=== PATIENT | male | born 1955 | race Caucasian/White ===

== ENCOUNTER → 2025-04-14 | Outpatient (CLI) | payer MEDICARE, SELFPAY ==
[2025-04-14 09:18] LABS: Hematocrit 38.4 % (40-54); Hemoglobin 11.6 g/dL (13.0-16.5); Immature Granulocytes Count 0.130 X10^3/uL (0.0-0.0); Mean Corp Hgb Conc 30.2 g/dL (32-36); Mean Corpuscular Volume 84.0 fL (80-94); Mean Platelet Vol. 10.0 fl (6.2-12.0); NRBC Flagged by Analyzer 0 % (0-5); Platelet Count 306 K/mm3 (150-450); RBC Distribution Width CV 15.2 % (11.6-14.6); RBC Distribution Width SD 46.2 fl (35.1-43.9); Red Blood Count 4.57 M/mm3 (4.6-6.2); White Blood Count 13.2 K/mm3 (4.4-11.0)
[2025-04-14 10:03] LABS: AST(SGOT) 18 U/L (<=37); Alanine Aminotransfer ALT/SGPT 13 U/L (<=46); Albumin, Serum 4.3 g/dL (3.4-4.8); Alkaline Phosphatase 81 U/L (40-129); Anion Gap 14 (5-15); BUN 17 mg/dL (4-19); BUN/Creat Ratio 13.6 RATIO (10-20); Calcium,Total 9.8 mg/dL (7.6-11.0); Carbon Dioxide 21.1 mmol/L (21.0-32.0); Chloride 101 mmol/L (98-108); Globulin 3.4 g/dL (2.2-4.2); Glucose 173 mg/dL (70-99); Potassium 4.5 mmol/L (3.3-5.1)
== END | disposition home or self-care (01) ==
LOC: LAB 08:18
PROVIDERS: PCP Family Medicine; Referring Provider Student in an Organized Health Care Education/Training Program; Visit Provider Student in an Organized Health Care Education/Training Program
DX: D64.9 Anemia, unspecified (principal); R19.5 Other fecal abnormalities
CPT/HCPCS: 36415; 80053; 85025

== ENCOUNTER 2025-04-15 10:13 | Day surgery (SDC) | payer MEDICARE, SELFPAY ==
--- NOTE | 2025-04-14 16:39 | PAT.ANESEVAL ---
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 When Was Last Pacemaker Check QUESTION #4 FULL TEXT: You/Your Family Experience fever (hyperthermia) with Anesthesia Last Oral Intake Last Oral intake: Last Oral Intake NPO since Meds taken in AM with sips of water? Meds patient instructed to take am of surgery PONV PONV - block splitter operator: PONV - block splitter operator Female No 04/14/25 15:48 HX of Motion Sickness No 04/14/25 15:48 HX of N/V After Surgery No 04/14/25 15:48 Non-Smoker Yes 04/14/25 15:48 Duration of Surgery greater No 04/14/25 15:48 than 60 minutes Number of Risk Factors 1 04/14/25 15:48 PONV Score Low Risk 04/14/25 15:48 Respiratory Assessment Respiratory Assessment - block splitter operator: Respiratory Tract Infection Hx - block splitter operator Hx Respiratory Tract Infection No 04/14/25 15:48 STOP Sleep Apnea STOP Sleep Apnea - block splitter operator: STOP Sleep Apnea - block splitter operator Hx Hypertension Yes: controlled with med 04/14/25 15:48 Hx Sleep Apnea No 04/14/25 15:48 CPAP BIPAP Do you snore loudly (louder No 04/14/25 15:48 than talking or can be heard Do you often feel tired/ No 04/14/25 15:48 fatigued/ sleepy during daytime? Has anyone observed you stop No 04/14/25 15:48 breathing during sleep? STOP Results Negative 04/14/25 15:48 QUESTION #5 FULL TEXT : Do you snore loudly (louder than talking or can be heard through closed doors)? 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 Specify any problems Hx of Preganancy in last 3 N/A 04/14/25 15:48 Months Nurse Filling Out Transfusion NBUCHER 04/14/25 15:48 & Questions: Date: 04/14/25 04/14/25 15:48 Time: 15:50 04/14/25 15:48 Patient unable to answer at this time (ie. confused, unrespo /Reproduction History /Reproductive History - block splitter operator: /Reproductive Hx- block splitter operator Hx Now No 04/14/25 15:48 Gestational Age (in weeks): EDC: Hx Hx Para Hx Section SAB No 04/14/25 15:48 Does the father of the baby or his family experience fever w Father of the baby Malignant Hypertension history comment [facility] Medical History (Updated 04/14/25 @ 16:31 by Lucia Leiva) History of echocardiogram STEMI (ST elevation myocardial infarction) CAD (coronary artery disease) Wears hearing aid Loss of hearing Wears glasses Anxiety DVT (deep venous thrombosis) Restless legs Heartburn Non-smoker High cholesterol High blood pressure Hearing problem Myocardial infarct Home Medications Medication Instructions Recorded Last Taken Type Diltiazem 2% / Lidocaine 5% #1 ea 04/14/25 Unknown Rx ointment (compound) (Diltiazem 2%/Lidocaine 5% ointment (compound)) aspirin 81 mg tablet 81 mg PO QDAY 04/14/25 Unknown History blood-glucose meter (Contour Plus 04/14/25 Unknown History Blue Meter) clotrimazole 1 % topical cream 1 applic topical BID 04/14/25 Unknown History glimepiride 1 mg tablet 1 mg PO QDAY 04/14/25 Unknown History hyoscyamine sulfate 0.125 mg 0.125 mg sublingual BID-QID PRN 04/14/25 Unknown History sublingual tablet dyspepsia levocetirizine 5 mg tablet (Xyzal) 5 mg PO QDAY 04/14/25 Unknown History lisinopril 20 mg tablet 20 mg PO QDAY 04/14/25 Unknown History metformin 500 mg tablet 500 mg PO BIDWMEAL 04/14/25 Unknown History metoprolol succinate 50 mg 50 mg PO QDAY 04/14/25 Unknown History tablet,extended release 24 hr rosuvastatin 40 mg tablet 40 mg PO QDAY 04/14/25 Unknown History ticagrelor 90 mg tablet (Brilinta) 90 mg PO BID 04/14/25 Unknown History Allergy/AdvReac Type Severity Reaction Status Date / Time codeine Allergy Severe Hives Verified 04/14/25 15:47 Family History Mother COPD (chronic obstructive pulmonary disease) Father COPD (chronic obstructive pulmonary disease) Surgical History (Updated 04/14/25 @ 16:31 by Lucia Leiva) History of surgery on right wrist History of meniscectomy of left knee History of hernia repair History of coronary artery stent placement History of cardiac catheterization History of thrombectomy Social History Smoking Status: Never smoker alcohol intake: never substance use type: does not use what type of physical activity do you participate in: none Audit: Pertinent Findings HISTORY of Pertinent Findings History of Pertinent Findings: Hx CAD, STEMI 12/2023 with SYED placement to RCA, 40% stenosis in mid LAD, and complete occlusion in diagonal 1. Pertinent Findings Echo (EF%) pertinent findings: 12/2023: preserved EF - 63%, no valvular dz present. Heart catheterization pertinent findings: 12/2023: Coronary revascularization prox-mid RCA with SYED placed. 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 Thus, anesthesia clearance will depend on anesthesiologist eval on DOS)
[2025-04-15] VITALS (9 sets, daily range): BP systolic 90–127; BP diastolic 65–84; PULSE 73–95; RESP 16–18; TEMP 36.2–36.4; O2SAT 96–98; BMI 28.5
--- NOTE | 2025-04-15 10:30 | PCM.HP.STD ---
[facility] - General General Date of Admission: 04/15/25 Date of Service: 04/15/25 Chief Complaint: Anemia and diarrhea HPI Narrative SABRINA REYES, is a 69 M who presents for evaluation of anemia, and diarrhea and hemorrhoids. Patient referred from primary care provider due to anemia, change in bowel habits and hemorrhoids. Over the last 8 weeks patient has had diarrhea at least 3 times per day. Stools are urgent and liquid. Around this time he changed his metformin dose. He has associated abdominal cramping and nausea. About 6 weeks ago he developed a large hemorrhoid. He has been trying dimf-sti-feolpof remedies without relief. He has to sit on 1 side to relieve the pain. Pain is worse with bowel movements. Last colonoscopy was 10 years ago with 1 polyp. COUNT INCLUDES THE [facility] Medical History History of echocardiogram STEMI (ST elevation myocardial infarction) CAD (coronary artery disease) Wears hearing aid Loss of hearing Wears glasses Anxiety DVT (deep venous thrombosis) Restless legs Heartburn Non-smoker High cholesterol High blood pressure Hearing problem Myocardial infarct Home Medications Medication Instructions Recorded Last Taken Type Diltiazem 2% / Lidocaine 5% #1 ea 04/14/25 Unknown Rx ointment (compound) (Diltiazem 2%/Lidocaine 5% ointment (compound)) aspirin 81 mg tablet 81 mg PO QDAY 04/14/25 Unknown History blood-glucose meter (Contour Plus 04/14/25 Unknown History Blue Meter) clotrimazole 1 % topical cream 1 applic topical BID 04/14/25 Unknown History glimepiride 1 mg tablet 1 mg PO QDAY 04/14/25 Unknown History hyoscyamine sulfate 0.125 mg 0.125 mg sublingual BID-QID PRN 04/14/25 Unknown History sublingual tablet dyspepsia levocetirizine 5 mg tablet (Xyzal) 5 mg PO QDAY 04/14/25 Unknown History lisinopril 20 mg tablet 20 mg PO QDAY 04/14/25 Unknown History metformin 500 mg tablet 500 mg PO BIDWMEAL 04/14/25 Unknown History metoprolol succinate 50 mg 50 mg PO QDAY 04/14/25 Unknown History tablet,extended release 24 hr rosuvastatin 40 mg tablet 40 mg PO QDAY 04/14/25 Unknown History ticagrelor 90 mg tablet (Brilinta) 90 mg PO BID 04/14/25 Unknown History Allergy/AdvReac Type Severity Reaction Status Date / Time codeine Allergy Severe Hives Verified 04/14/25 15:47 Family History Mother COPD (chronic obstructive pulmonary disease) Father COPD (chronic obstructive pulmonary disease) Surgical History History of surgery on right wrist History of meniscectomy of left knee History of hernia repair History of coronary artery stent placement History of cardiac catheterization History of thrombectomy Social History Smoking Status: Never smoker alcohol intake: never substance use type: does not use what type of physical activity do you participate in: none ROS Constitutional Constitutional: Denies fatigue, fever(s), poor appetite, weight gain or weight loss Gastrointestinal Gastrointestinal: Denies belching, bloating, change in bowel habits, change in stool character, chewing difficulty, coffee ground emesis, constipation, cramping, diarrhea, dyspepsia, dysphagia, early satiety, excessive flatus, fecal incontinence, heartburn, hematemesis, hematochezia, hemorrhoids, loose stools, melena, nausea, odynophagia, rectal bleeding, tenesmus, vomiting or weight changes Physical Exam Const alert, oriented x3, no apparent distress and healthy appearing General Appearance: cooperative GI normal to inspection, nondistended, normoactive bowel sounds, soft to palpation, non-tender and non-distended Percussion: normal to percussion Rectal Exam: deferred Assessment & Plan Assessment/Plan (1) Hemorrhoid: (2) Loose stools: (3) Anemia: PLAN: Assessment and Plan Assessment and Plan (1) Anemia: Status: Acute (2) Loose stools: Status: Acute (3) Hemorrhoid: Status: Acute Plan: Sabrina is a 69-year-old male patient with past medical history of OR, hypertension and hyperlipidemia here today for evaluation. Patient having loose stool, abdominal pain, nausea and hemorrhoids over the past 8 weeks. Prior to this he had normal bowel movements. Last colonoscopy over 10 years ago with 1 polyp. Upon exam he does have 1 large hemorrhoid at the 4:00 region that is able to be reduced. I have sent in lidocaine/diltiazem ointment and recommend sitz bath. If no improvement will refer to general surgery. I have ordered CBC and CMP as he has been anemic. He is unsure how low his hemoglobin has been and unable to find records. I have recommended stool testing for enteric pathogens and calprotectin. Due to his anemia, blood in stool and change in bowel habits there is concern and recommended colonoscopy. Patient was agreeable and he was scheduled for this today. - Colonoscopy - CBC and CMP - Start lidocaine/diltiazem ointment - Follow-up after procedure Note: Portions of this note may have been selectively carried forward from previous documentation to ensure continuity and accuracy of the clinical record. All imported information has been reviewed and updated as necessary to reflect the current patient status, findings, and clinical decision-making for this encounter. [employer] speech recognition property economist software was used to create portions of this document. Sound alike and misspelled words, as well as other property economist errors may be contained in the documentation. Orders: Orders CBC W/Diff, Automated Today D64.9 - Anemia, unspecified, R19.5 - Other fecal abnormalities Comprehensive Metabolic Profil Today D64.9 - Anemia, unspecified, R19.5 - Other fecal abnormalities ENTERIC PATHOGEN PANEL STOOL Today D64.9 - Anemia, unspecified, K58.9 - Irritable bowel syndrome, unspecified, R19.5 - Other fecal abnormalities Calprotectin, Stool Today D64.9 - Anemia, unspecified, R19.5 - Other fecal abnormalities OVA+PARA w/Giardia EIA [id number] Today D64.9 - Anemia, unspecified, R19.5 - Other fecal abnormalities CDIFF (PCR) Today D64.9 - Anemia, unspecified, R19.5 - Other fecal abnormalities Colonoscopy Today D64.9 - Anemia, unspecified, K64.9 - Unspecified hemorrhoids, R19.5 - Other fecal abnormalities Medications: New Diltiazem 2% / Lidocaine 5% ointment (compound) (Diltiazem 2%/Lidocaine 5% ointment (compound)) Apply peasized amount to anus three times per day for hemorrhoids 1 ea 0RF ]
[2025-04-15] MEDS: Lactated Ringers 1,000 ML 15 ML IV (11:07)
--- NOTE | 2025-04-15 11:24 | PRE.ANES_ITS ---
ASA Classification* ASA Classification ASA Classification: 3 (hx of CAD, STEMI) Assessment & Plan Anesthesia* Anesthesia Assessment Anesthesia Assessment: Discussed sedation and/or anesthesia options, risks, benefits, and alternatives with patient/parents/legal guardian/POA. Questions invited. The patient/parents/legal guardian/POA seems to understand and agrees to proceed with anesthesia plan. Reviewed the physical assessment, medical history, allergy history and patient home medications list prior to surgery/procedure/anesthetic and documented any changes. Performed airway and anesthesia risk assessments. Anesthesia Type Anesthesia Type: MAC History Source History Obtained from:: Patient and Chart Anesthesia Focused Assessment* Temperature: 97.5 F Pulse Rate: 77 Blood Pressure: 127/84 Respiratory Rate: 16 Pulse Ox: 97 Airway Assessment Mouth opens: >3 cm Mallampati Score: II Neck Range of motion (ROM): Full ROM Labs Anesthesia Preop lab: CBC WBC, (4.4-11.0) 13.2 K/mm3 H 04/14/25, 08:23 RBC, (4.6-6.2) 4.57 M/mm3 L 04/14/25, 08:23 Hgb, (13.0-16.5) 11.6 g/dL L 04/14/25, 08:23 Hct, (40-54) 38.4 % L 04/14/25, 08:23 Plt Count, (150-450) 306 K/mm3 04/14/25, 08:23 CHEMISTRY Potassium, (3.3-5.1) 4.5 mmol/L 04/14/25, 08:23 Sodium, (133-145) 136 mmol/L 04/14/25, 08:23 BUN, (4-19) 17 mg/dL 04/14/25, 08:23 Creatinine, (0.70-1.20) 1.27 mg/dL H 04/14/25, 08:23 Glucose, (70-99) 173 mg/dL H 04/14/25, 08:23 POC Glucose, (74-106) 154 mg/dL H Today, 10:54 COAG Pre-Assessment Diagnosis/Proposed Procedure Planned Operative Procedure(s): cscope Anesthesia History 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 When Was Last Pacemaker Check QUESTION #4 FULL TEXT: You/Your Family Experience fever (hyperthermia) with Anesthesia Last Oral Intake Last Oral intake: Last Oral Intake NPO since 07:00 04/15/25 10:59 Meds taken in AM with sips of Yes 04/15/25 10:59 water? Meds patient instructed to take am of surgery PONV PONV - auto technician: PONV - auto technician Female No 04/14/25 15:48 HX of Motion Sickness No 04/14/25 15:48 HX of N/V After Surgery No 04/14/25 15:48 Non-Smoker Yes 04/14/25 15:48 Duration of Surgery greater No 04/14/25 15:48 than 60 minutes Number of Risk Factors 1 04/14/25 15:48 PONV Score Low Risk 04/14/25 15:48 Height & Weight Height & Weight: Anesthesia: Height & Weight Height 5 ft 10 in 04/15/25 10:59 Weight: 90.265 kg 04/15/25 10:59 Body Mass Index (BMI) 28.5 04/15/25 10:59 Respiratory Assessment Respiratory Assessment - auto technician: Respiratory Tract Infection Hx - auto technician Hx Respiratory Tract Infection No 04/14/25 15:48 STOP Sleep Apnea STOP Sleep Apnea - auto technician: STOP Sleep Apnea - auto technician Hx Hypertension Yes: controlled with med 04/14/25 15:48 Hx Sleep Apnea No 04/14/25 15:48 CPAP BIPAP Do you snore loudly (louder No 04/14/25 15:48 than talking or can be heard Do you often feel tired/ No 04/14/25 15:48 fatigued/ sleepy during daytime? Has anyone observed you stop No 04/14/25 15:48 breathing during sleep? STOP Results Negative 04/14/25 15:48 QUESTION #5 FULL TEXT : Do you snore loudly (louder than talking or can be heard through closed doors)? 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 Specify any problems Hx of Preganancy in last 3 N/A 04/14/25 15:48 Months Nurse Filling Out Transfusion NBUCHER 04/14/25 15:48 & Questions: Date: 04/14/25 04/14/25 15:48 Time: 15:50 04/14/25 15:48 Patient unable to answer at this time (ie. confused, unrespo /Reproduction History /Reproductive History - auto technician: /Reproductive Hx- auto technician Hx Now No 04/14/25 15:48 Gestational Age (in weeks): EDC: Hx Hx Para Hx Section SAB No 04/14/25 15:48 Does the father of the baby or his family experience fever w Father of the baby Malignant Hypertension history comment Active Medications Active Medications: Current Medications Generic Name Dose Route Start Last Admin Trade Name Freq PRN Reason Stop Dose Admin Lactated Ringer's 1,000 mls @ 15 mls/hr 04/15/25 10:30 04/15/25 11:07 IV 15 mls/hr .Q48H JOSEPH Administration PFSH Medical History History of echocardiogram STEMI (ST elevation myocardial infarction) CAD (coronary artery disease) Wears hearing aid Loss of hearing Wears glasses Anxiety DVT (deep venous thrombosis) Restless legs Heartburn Non-smoker High cholesterol High blood pressure Hearing problem Myocardial infarct Home Medications Medication Instructions Recorded Last Taken Type Diltiazem 2% / Lidocaine 5% #1 ea 04/14/25 Unknown Rx ointment (compound) (Diltiazem 2%/Lidocaine 5% ointment (compound)) aspirin 81 mg tablet 81 mg PO QDAY 04/14/2504/13 History blood-glucose meter (Contour Plus 04/14/25 Unknown Hi story Blue Meter) clotrimazole 1 % topical cream 1 applic topical BID 04/14/25 History glimepiride 1 mg tablet 1 mg PO QDAY 04/14/25 History hyoscyamine sulfate 0.125 mg 0.125 mg sublingual BID-Q ID PRN 04/14/25 Unknown History sublingual tablet dyspepsia levocetirizine 5 mg tablet (Xyzal) 5 mg PO QDAY PRN al lergy symptoms 04/14/25 Unknown History lisinopril 20 mg tablet 20 mg PO QDAY 04/14/2504/15 07:00 History metformin 500 mg tablet 500 mg PO BIDWMEAL 04/14/25 04/13/25 History metoprolol succinate 50 mg 50 mg PO QDAY 04/14/2504/03 07:00 History tablet,extended release 24 hr rosuvastatin 40 mg tablet 40 mg PO QDAY 04/14/2504/13 History ticagrelor 90 mg tablet (Brilinta) 90 mg PO BID 04/13/25 History Allergy/AdvReac Type Severity Reaction Status Date / Time codeine Allergy Severe Hives Verified 04/15/25 10:55 Family History Mother COPD (chronic obstructive pulmonary disease) Father COPD (chronic obstructive pulmonary disease) Surgical History History of surgery on right wrist History of meniscectomy of left knee History of hernia repair History of coronary artery stent placement History of cardiac catheterization History of thrombectomy Social History Smoking Status: Never smoker alcohol intake: never substance use type: does not use what type of physical activity do you participate in: none Review of Systems (Anesthesia) ROS Narrative System reviewed and no additional complaints, except as documented.
--- NOTE | 2025-04-15 11:30 | COLBX_PTH ---
PATIENT: SABRINA REYES LOC: EN U#:[id number] AGE/SX: 69/M ROOM: RE04/15/[address]: Dr. Ricardo Cross DO : 1955 BED: DIS: 04/15/2025 SPEC #: [id number] RECD: 04/15/25 13:17 STATUS: KELLI RERupert #: [id number] RAMSEY: 04/15/25 11:[address]: Ricardo Cross DEPT: SURGICAL PATHOLOGY RECD BY: Mani Lopez ENTERED: 04/15/25 13:40 SP TYPE: COLON BX TRINY DR: Dr. Wyatt Giron DO Tissues: A - Descending colon B - Transverse colon C - Sigmoid colon biopsy D - Rectum, NOS Procedures: Surgery Specimen Level IV HEADER OPERATION: Colonoscopy with polypectomy and biopsy PRE-OP DIAGNOSIS: Hemorrhoid, anemia, loose stools TISSUE SUBMITTED: A- Descending colon polyp, B- Transverse colon polyp, C- Sigmoid colon polyp biopsy, D- Rectal mass biopsy MICROSCOPIC DIAGNOSIS A. Large intestine, descending polyp, biopsies: - Tubular adenoma B. Large intestine, transverse polyp: * Tubular adenoma C. Large intestine, sigmoid polyp: - Colonic mucosa with focal and superficial adenomatous features D. Rectum, mass: - Adenocarcinoma MICROSCOPIC DESCRIPTION Slides are reviewed. GROSS DESCRIPTION A. Received in fixative is one container labeled with the patient's name and designated "Descending colon polyp." The specimen consists of multiple irregular fragments of aguilar tissue that in aggregate measure 1.5 x 0.9 x 0.2 cm. admixed with flocculent material The specimen is totally submitted in one cassette. B. Received in fixative is one container labeled with the patient's name and designated "Transverse colon polyp." The specimen consists of multiple irregular fragments of aguilar tissue that in aggregate measure 0.6 x 0.4 x 0.1 cm. The specimen is totally submitted in one cassette. C. Received in fixative is one container labeled with the patient's name and designated "Sigmoid colon polyp biopsy." The specimen consists of one irregular fragment of aguilar tissue that measures 0.3 cm. The specimen is totally submitted in one cassette. D. Received in fixative is one container labeled with the patient's name and designated "Rectal mass biopsy." The specimen consists of multiple irregular fragments of aguilar tissue that in aggregate measure 1.3 x 0.9 x 0.2 cm. The specimen is totally submitted in one cassette. NC 04/15/2025 CPT:40235y8
--- NOTE | 2025-04-15 11:43 | EKG12_ITS ---
Test Reason : PREOP Blood Pressure : */* mmHG Vent. Rate : 78 BPM Atrial Rate : 78 BPM P-R Int : 138 ms QRS Dur : 102 ms QT Int : 430 ms P-R-T Axes : 52 -29 57 degrees QTcB Int : 490 ms Normal sinus rhythm Septal infarct , age undetermined Abnormal ECG No previous ECGs available Confirmed by KEITH ADAMS, ENRIQUE ([id number]), sound editor JU BAPTISTE ([id number]) on 04/19/2025 9:44:59 AM Referred By: Wyatt Giron Confirmed By: ENRIQUE PARKER MD
--- NOTE | 2025-04-15 12:29 | OP.COLON_ITS ---
Patient Name: Nakul Zamorano Procedure Date: 04/15/2025 11:31 AM Date of : 1955 Age: 69 Procedure: Colonoscopy Indications: Screening for colorectal malignant neoplasm Providers: Ricardo Cross DO Medicines: Monitored Anesthesia Care Patient Profile: This is a 69 year old male. Refer to note in patient chart for documentation of history and physical. Last Colonoscopy: none. The patient's first colonoscopy is today. Complications: No immediate complications. Procedure: Pre-Anesthesia Assessment: - Prior to the procedure, a History and Physical was performed, and patient medications and allergies were reviewed. The patient is competent. The risks and benefits of the procedure and the sedation options and risks were discussed with the patient. All questions were answered and informed consent was obtained. Patient identification and proposed procedure were verified by the physician in the pre-procedure area. Mental Status Examination: alert and oriented. Airway Examination: normal oropharyngeal airway and neck mobility. Respiratory Examination: clear to auscultation. CV Examination: normal. Prophylactic Antibiotics: The patient does not require prophylactic antibiotics. Prior Anticoagulants: The patient has taken no anticoagulant or antiplatelet agents except for NSAID medication. ASA Grade Assessment: II - A patient with mild systemic disease. After reviewing the risks and benefits, the patient was deemed in satisfactory condition to undergo the procedure. The anesthesia plan was to use monitored anesthesia care (MAC). Immediately prior to administration of medications, the patient was re-assessed for adequacy to receive sedatives. The heart rate, respiratory rate, oxygen saturations, blood pressure, adequacy of pulmonary ventilation, and response to care were monitored throughout the procedure. The physical status of the patient was re-assessed after the procedure. After I obtained informed consent, the scope was passed under direct vision. Throughout the procedure, the patient's blood pressure, pulse, and oxygen saturations were monitored continuously. The colonoscope was introduced through the anus and advanced to the cecum, identified by appendiceal orifice and ileocecal valve. The colonoscopy was performed without difficulty. The patient tolerated the procedure well. The quality of the bowel preparation was adequate. The ileocecal valve, appendiceal orifice, and rectum were photographed. Scope In: 11:45:20 AM Scope Withdrawal Time 0 hours 12 minutes 19 seconds Scope Out: 12:19:44 PM Total Procedure Duration Time 0 hours 34 minutes 24 seconds Findings: The digital rectal exam revealed a hard rectal mass palpated 2 to 3 cm from the anal verge. The mass was circumferential. An ulcerated partially obstructing large mass was found at the anus and in the rectum. The mass was circumferential. The mass measured three cm in length. In addition, its diameter measured seven mm. Oozing was present. This was biopsied with a cold forceps for histology. Coagulation for hemostasis using argon plasma at 1.3 liters/minute and 30 william was successful. Estimated blood loss was minimal. This was biopsied with a cold forceps for histology. Verification of patient identification for the specimen was done. Estimated blood loss was minimal. Three sessile polyps were found in the sigmoid colon, descending colon and transverse colon. The polyps were 10 mm in size. These polyps were removed with a hot snare. Resection and retrieval were complete. Verification of patient identification for the specimen was done. Estimated blood loss was minimal. Stool was found in the recto-sigmoid colon, in the sigmoid colon and in the cecum. Impression: - Rectal mass 2 to 3 cm from the anal verge. 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 Biopsied. Treated with argon plasma coagulation (APC). - Three 10 mm polyps in the sigmoid colon, in the descending colon and in the transverse colon, removed with a hot snare. Resected and retrieved. - Stool in the recto-sigmoid colon, in the sigmoid colon and in the cecum. Recommendation: - Discharge patient to home. - Resume previous diet. - Continue present medications. - Await pathology results. - Refer to an oncologist in 1 day. - Repeat colonoscopy in 1 year for surveillance. Procedure Code(s): --- Professional --- 88581, 59, Colonoscopy, flexible; with control of bleeding, any method 66890, Colonoscopy, flexible; with removal of tumor(s), polyp(s), or other lesion(s) by snare technique CPT copyright 2021 [employer]. All rights reserved. The codes documented in this report are preliminary and upon plastic mixer review may be revised to meet current compliance requirements. Ricardo Cross DO 04/15/2025 12:29:30 PM This report has been signed electronically. Number of Addenda: 0 Note Initiated On: 04/15/2025 11:31 AM
--- NOTE | 2025-04-15 12:29 | PCM.POST.ANE ---
Anesthesia: Postop Eval I Current Vital Signs Temperature: 97.2 F Pulse Rate: 94 Blood Pressure: 101/65 Respiratory Rate: 18 Pulse Ox: 97 Oxygen Delivery Method: Room Air Assessment Airway patent: Yes Spontaneous unlabored respirations: Yes Mental status: Asleep nausea: No Vomiting: No Anesthesia Complication: No Fluid Hydration Crystalloid volume administer (ml): 600 Total IV fluid infused: 600 Progress Note Anesthesia document: Postop Eval 1 completed: Yes
--- NOTE | 2025-04-15 12:30 | OP.PROVAT_ITS ---
04/15/2025 Wyatt Giron Re : Colonoscopy procedure for Nakul Deshpande Mack This procedure was performed on April. My impressions and recommendations are as follows: Impressions : - Rectal mass 2 to 3 cm from the anal verge. 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 Biopsied. Treated with argon plasma coagulation (APC). - Three 10 mm polyps in the sigmoid colon, in the descending colon and in the transverse colon, removed with a hot snare. Resected and retrieved. - Stool in the recto-sigmoid colon, in the sigmoid colon and in the cecum. Recommendations : - Discharge patient to home. - Resume previous diet. - Continue present medications. - Await pathology results. - Refer to an oncologist in 1 day. - Repeat colonoscopy in 1 year for surveillance. My findings are described in the full procedure note, which is enclosed. If I can be of further assistance, please feel free to contact me at . Sincerely, Ricardo Cross, 04/15/2025 12:29:30 PM This report has been signed electronically.
--- NOTE | 2025-04-15 13:10 | PCM.POSTANE2 ---
Anesthesia Postop Eval I Sum Postop Eval Completion status Anesthesia document: Postop Eval 1 completed: Yes Anesthesia Postop Eval I Summary Anesthesia Postop Eval I Summary: Anesthesia Postop Eval I: Assessment Summary Airway patent Yes 04/15/25 12:29 [email or web address] Spontaneous unlabored Yes 04/15/25 12:29 [email or web address] respirations Mental status Asleep 04/15/25 12:29 [email or web address] nausea No 04/15/25 12:29 [email or web address] Vomiting No 04/15/25 12:29 [email or web address] Anesthesia Postop Eval I: Fluid Summary Crystalloid volume administer 600 04/15/25 12:29 [email or web address] (ml) Colloids volume administered ( ml) Blood Product volume administered (ml) Total IV fluid infused 600 04/15/25 12:29 [email or web address] Anesthesia Postop Eval I: Summary Notes Anesthesia Complication No 04/15/25 12:29 [email or web address] Anesthesia Complication Comment: Post-operative progress note Anesthesia: Postop Eval II Evaluation Mental status: Awake Pain Level: 0 nausea: No Vomiting: No Complications Anesthesia Complication: No
== END 2025-04-15 13:18 | disposition home or self-care (01) ==
LOC: EN 10:14 → AC 10:17
PROVIDERS: PCP Family Medicine; Referring Provider Family Medicine; Visit Provider Internal Medicine Gastroenterology
DX: C20 Malignant neoplasm of rectum (principal); D64.9 Anemia, unspecified; Z79.899 Other long term (current) drug therapy; K64.9 Unspecified hemorrhoids; Z86.718 Personal history of other venous thrombosis and embolism; I25.10 Atherosclerotic heart disease of native coronary artery without angina pectoris; E78.00 Pure hypercholesterolemia, unspecified; Z79.82 Long term (current) use of aspirin; I10 Essential (primary) hypertension; Z79.84 Long term (current) use of oral hypoglycemic drugs; D12.4 Benign neoplasm of descending colon; D12.3 Benign neoplasm of transverse colon; D12.5 Benign neoplasm of sigmoid colon
CPT/HCPCS: 45385; 45380; 82962; 88305; 93005; C1889; J2405

== ENCOUNTER → 2025-04-16 | Outpatient (CLI) | payer MEDICARE, SELFPAY ==
--- NOTE | 2025-04-16 14:45 | CT_ITS ---
EXAM: CT Chest, Abdomen and Pelvis With Intravenous Contrast CLINICAL INDICATION: COLORECTAL CANCER TECHNIQUE: Axial computed tomography images of the chest, abdomen and pelvis with intravenous contrast. This CT exam was performed using one or more of the following dose reduction techniques: automated exposure control, adjustment of the mA and/or kV according to patient size, and/or use of iterative reconstruction technique. COMPARISON: No relevant prior studies available. FINDINGS: CHEST: LUNGS AND PLEURAL SPACES: Emphysematous lung changes. No mass. No consolidation. No significant effusion. No pneumothorax. HEART: Unremarkable. No cardiomegaly. No significant pericardial effusion. No significant coronary artery calcifications. ABDOMEN: LIVER: Ill-defined heterogeneous density in the right hepatic lobe measuring up to 1.5 cm. Heterogeneous density in the inferior right hepatic lobe measuring up to 1.6 cm. Metastasis can not be excluded. Hepatomegaly with fatty infiltration. GALLBLADDER AND BILE DUCTS: Unremarkable. No calcified stones. No ductal dilation. PANCREAS: Unremarkable. No ductal dilation. No mass. SPLEEN: Unremarkable. No splenomegaly. ADRENALS: Unremarkable. No mass. KIDNEYS AND URETERS: Unremarkable. No hydronephrosis. No solid mass. STOMACH AND BOWEL: Fecal retention in the colon consistent with constipation. No obstruction. No mucosal thickening. PELVIS: APPENDIX: No findings to suggest acute appendicitis. BLADDER: Unremarkable. No mass. REPRODUCTIVE: The prostate gland measures 4.8 cm in maximum dimension. CHEST, ABDOMEN and PELVIS: INTRAPERITONEAL SPACE: Unremarkable. No significant fluid collection. No free air. BONES/JOINTS: Unremarkable. No acute fracture. SOFT TISSUES: Umbilical hernia containing fat. Left inguinal hernia containing fat. VASCULATURE: Calcified and noncalcified plaque of the descending aorta. No aortic dissection or aneurysm. Scattered calcified atherosclerotic disease of aorta. LYMPH NODES: Unremarkable. No enlarged lymph nodes. CT/CT Chest, Abd, Pel w/Contrast IMPRESSION: 1. Ill-defined heterogeneous density in the right hepatic lobe measuring up to 1.5 cm. Heterogeneous density in the inferior right hepatic lobe measuring up to 1.6 cm. Metastasis can not be excluded. 2. Calcified and noncalcified plaque of the descending aorta. No aortic disse ction or aneurysm. 3. Hepatomegaly with fatty infiltration. 4. Fecal retention in the colon consistent with constipation. 5. Umbilical hernia containing fat. 6. Left inguinal hernia containing fat. Reading Location: [facility]
== END | disposition home or self-care (01) ==
LOC: CT 12:35
PROVIDERS: PCP Family Medicine; Referring Provider Internal Medicine Gastroenterology; Visit Provider Internal Medicine Gastroenterology
DX: C18.9 Malignant neoplasm of colon, unspecified (principal)
CPT/HCPCS: 71260; 74177; Q9967

== ENCOUNTER → 2025-05-06 | Outpatient (CLI) | payer MEDICARE, SELFPAY ==
[2025-05-06] VITALS (14 sets, daily range): BP systolic 115–171; BP diastolic 71–103; PULSE 59–72; RESP 14–20; TEMP 36.4; O2SAT 89–100; BMI 29.2
--- NOTE | 2025-05-06 08:48 | CT_ITS ---
PROCEDURE: BIOPSY/INJ OR NEEDLE PLACEMENT 05/06/2025 REASON FOR EXAM: LIVER LESION TECHNIQUE: Procedure Code: CTBX Modality: CT Procedure: BIOPSY/INJ OR NEEDLE PLACEMENT Coronal and Sagittal reconstruction series were provided. One or more dose reduction techniques were used (e.g., Automated exposure control, adjustment of the mA and/or kV according to patient size, use of iterative reconstruction technique. CONTRAST: None. The procedure as well as the benefits and possible complications including infection and bleeding were explained to the patient. Informed consent was obtained. The patient was in the supine position. The overlying skin was prepped and draped in usual sterile fashion. Conscious sedation was performed. The patient received 2 mg of Versed and 50 mcg of fentanyl intravenously. Conscious sedation was started at 9:50 a.m. and terminated at 10:20 a.m.. The patient was independently monitored by the department nurse. Following local anesthetic application, an 18 gauge core biopsy needle was placed into the hypodense nodule in the inferior aspect of the right lobe of the liver. 4 core biopsies were obtained. The specimen was deemed adequate by the pathologist. RADIATION DOSE SUMMARY: CTDlvol: 20.25 mGy DLP: 592.87 mGycm COMPARISON: Prior study dated April 16, 2025. FINDINGS: Successful CT-guided core biopsies of the hypodense nodule in the inferior aspect of the right lobe of the liver. The patient tolerated the procedure well. CT/Biopsy/Inj or Needle Placement IMPRESSION: Successful CT-guided biopsy of the abnormality in the inferior aspect of the ri ght lobe of the liver as described. The patient tolerated the procedure well. No immediate complication is seen. Reading Location: [place] [address]
[2025-05-06 08:50] LABS: Hematocrit 34.2 % (40-54); Hemoglobin 10.0 g/dL (13.0-16.5); Immature Granulocytes Count 0.050 X10^3/uL (0.0-0.0); Mean Corp Hgb Conc 29.2 g/dL (32-36); Mean Corpuscular Volume 83.0 fL (80-94); Mean Platelet Vol. 9.9 fl (6.2-12.0); NRBC Flagged by Analyzer 0 % (0-5); Platelet Count 264 K/mm3 (150-450); RBC Distribution Width CV 15.5 % (11.6-14.6); RBC Distribution Width SD 47.3 fl (35.1-43.9); Red Blood Count 4.12 M/mm3 (4.6-6.2); White Blood Count 9.6 K/mm3 (4.4-11.0)
[2025-05-06 09:00] LABS: Prothrombin Time (Protime)PT. 14.5 SECONDS (11.7-14.9)
[2025-05-06 09:01] LABS: Partial Thromboplast Time 24.8 Seconds (24.1-36.2)
[2025-05-06] MEDS: Midazolam 2 MG/2 ML Syringe IV (09:53)
[2025-05-06] MEDS: 0.9% Saline Lock 10 ML Syringe IV (09:53)
[2025-05-06] MEDS: fentaNYL 100 MCG/2 ML Ampul IV (09:55)
[2025-05-06] MEDS: Lidocaine 2% (20 ml mdv) 20 ML Vial INFILT (10:10)
--- NOTE | 2025-05-06 10:10 | ASPIGT_PTH ---
PATIENT: SABRINA REYES LOC: CT U#:[id number] AGE/SX: 69/M ROOM: RE05/06/[address]: Dr. Uzair Short MD : 1955 BED: DIS: 05/06/2025 SPEC #: [id number] RECD: 05/06/25 10:34 STATUS: KELLI RERupert #: [id number] ARMSEY: 05/06/25 10:[address]: Uzair Short DEPT: SURGICAL PATHOLOGY RECD BY: Kristin Mccormack ENTERED: 05/06/25 10:34 SP TYPE: ASP RAD OTHR DR: DO Dr. Umer Norman MD Tissues: Liver, NOS Procedures: FNA Specimen Adequacy Immunohistochemical Stains Special Stain Group II Surgery Specimen Level V Imprint (control) IHC Stain ADDITIONAL HEADER OPERATION: CT guided liver biopsy PRE-OP DIAGNOSIS: Rectal cancer TISSUE SUBMITTED: A- Right lobe, liver biopsy MICROSCOPIC DIAGNOSIS A. Liver, right lobe, CT-guided needle biopsy: - Metastatic adenocarcinoma COMMENT The specimen is evaluated at the time of biopsy by Dr. Carter. Immediate Evaluation = 1. Adequate. 2.Adeqaute. MICROSCOPIC DESCRIPTION Slides are reviewed. GROSS DESCRIPTION A. Received in formalin labeled with the patient's name and date of are multiple red-brown tissue core fragments, 0.3 cm to 1.4 cm in length by 0.1 cm in diameter. Touch preparations are made. Eyer[place] submitted in 2 cassettes. AR 05/06/2025 CPT:[id number] ,[id number] ADDENDUM ADDENDUM ADDENDUM ADDENDUM ADDENDUM ADDENDUM ADDENDUM ADDENDUM ADDENDUM ADDENDUM ADDENDUM ADDENDUM ADDENDUM ADDENDUM ADDENDUM ADDENDUM ADDENDUM ADDENDUM ADDENDUM ADDENDUM ADDENDUM ADDENDUM ADDENDUM 05/28/2025 12:39 ADDENDUM 05/28/2025 12:39 ADDENDUM 05/28/2025 12:39 ADDENDUM 05/28/2025 12:39 ADDENDUM 05/28/2025 12:39 ADDENDUM 06/09/2025 08:32 This addendum is to report the IHC for MMR: Mismatch Repair Protein (MMR) Nuclear Expression by IHC: ? MLH1: ?Present/intact ? PMS2: ?Present/intact ? MSH2: ?Present/intact ? MSH6: ?Present/intact IHC Interpretation: No loss of nuclear expression of?MMR?proteins: low probability of microsatellite instability-high (MSI-H)# # There are exceptions to the above IHC interpretations. These results should not be considered in isolation, and clinical correlation with genetic counseling is recommended to assess the need for germline testing. All matched controls reacted appropriately. These tests were developed and their performance characteristics determined by [facility]. They may not have been cleared or approved by the U.S. Food and Drug Administration. The FDA has determined that such clearance or approval is not necessary. The above immunohistochemical markers and/or special?stains have been reviewed by the Pathologist. This addendum is added to incorporate an outside pathology consultation report. The case was examined at [facility] by Dr. Masters (#[id number]) and the following diagnosis was rendered. A. 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 Please see complete above mentioned consultation report in EMR
== END | disposition home or self-care (01) ==
LOC: CT 08:28
PROVIDERS: Radiology Diagnostic Radiology; PCP Family Medicine; Referring Provider Internal Medicine Hematology & Oncology; Visit Provider Internal Medicine Hematology & Oncology
DX: C20 Malignant neoplasm of rectum (principal); C78.7 Secondary malignant neoplasm of liver and intrahepatic bile duct; N48.9 Disorder of penis, unspecified; D64.9 Anemia, unspecified
CPT/HCPCS: 47000; 36415; 77012; 85025; 85610; 85730; 88172; 88307; 88313; 88341; 88342; 99156; 99157; A4216

== ENCOUNTER 2025-05-10 07:35 | Day surgery (SDC) | payer MEDICARE, SELFPAY ==
--- NOTE | 2025-05-06 16:10 | PAT.ANESEVAL ---
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 When Was Last Pacemaker Check QUESTION #4 FULL TEXT: You/Your Family Experience fever (hyperthermia) with Anesthesia Last Oral Intake Last Oral intake: Last Oral Intake NPO since Meds taken in AM with sips of water? Meds patient instructed to take am of surgery PONV PONV - computer engineering technician: PONV - computer engineering technician Female No 05/06/25 13:44 HX of Motion Sickness No 05/06/25 13:44 HX of N/V After Surgery No 05/06/25 13:44 Non-Smoker No 05/06/25 13:44 Duration of Surgery greater Yes 05/06/25 13:44 than 60 minutes Number of Risk Factors 1 05/06/25 13:44 PONV Score Low Risk 05/06/25 13:44 Height & Weight Height & Weight: Anesthesia: Height & Weight Height 5 ft 10 in 05/06/25 09:26 Respiratory Assessment Respiratory Assessment - computer engineering technician: Respiratory Tract Infection Hx - computer engineering technician Hx Respiratory Tract Infection No 05/06/25 13:44 STOP Sleep Apnea STOP Sleep Apnea - computer engineering technician: STOP Sleep Apnea - computer engineering technician Hx Hypertension Yes: PER PT, controlled with 05/06/25 13:44 med Hx Sleep Apnea No 05/06/25 13:44 CPAP BIPAP Do you snore loudly (louder Yes 05/06/25 13:44 than talking or can be heard Do you often feel tired/ No 05/06/25 13:44 fatigued/ sleepy during daytime? Has anyone observed you stop No 05/06/25 13:44 breathing during sleep? STOP Results Positive 05/06/25 13:44 QUESTION #5 FULL TEXT : Do you snore loudly (louder than talking or can be heard through closed doors)? Tobacco Use History Tobacco Use History - computer engineering technician: Tobacco Use History - computer engineering technician Tobacco Use Smoking Status Current every day smoker 05/06/25 13:44 Hx Tobacco Use Yes: CHEWS TOBACCO 05/06/25 13:44 Years Smoking Packs Smoked per Day Smoking Cessation Date was within the last 15 years Hx Smoking Cessation Date Hx Smoking Cessation Counseling Hematologic Medial History Hematologic Hx - computer engineering technician: Hematologic Medical Hx - drug coordinator Hx of Blood Transfusion No 05/06/25 13:44 Hx of Transfusion in last 3 No 05/06/25 13:44 Months Date of Last Transfusion (if within last 3 months) Ever experience any problems No 05/06/25 13:44 with transfusion(s)? Specify any problems Hx of Preganancy in last 3 N/A 05/06/25 13:44 Months Nurse Filling Out Transfusion [email or web address] 05/06/25 13:44 & Questions: Date: 05/06/25 05/06/25 13:44 Time: 13:47 05/06/25 13:44 Patient unable to answer at this time (ie. confused, unrespo /Reproduction History /Reproductive History - computer engineering technician: /Reproductive Hx- computer engineering technician Hx Now No 05/06/25 13:44 Gestational Age (in weeks): EDC: Hx Hx Para Hx Section SAB No 05/06/25 13:44 Does the father of the baby or his family experience fever w Father of the baby Malignant Hypertension history comment [facility] Medical History (Updated 05/06/25 @ 13:54 by Marisa Miranda) Low iron Cancer Chews tobacco Leg cramps Rectal pain Rectal bleeding Facial palsy Strabismus Lesion of penis Rectum cancer History of echocardiogram STEMI (ST elevation myocardial infarction) CAD (coronary artery disease) Wears hearing aid Loss of hearing Wears glasses Anxiety DVT (deep venous thrombosis) Restless legs Heartburn High cholesterol High blood pressure Hearing problem Myocardial infarct Home Medications ?Medication ?Instructions ?Recorded ?Last Taken ?Type Diltiazem 2% / Lidocaine 5% #1 ea 04/14/25 Unknown Rx ointment (compound) (Diltiazem 2%/Lidocaine 5% ointment (compound)) aspirin 81 mg tablet 81 mg PO QDAY 04/14/25 04/13/25 History blood-glucose meter (Contour Plus 04/14/25 Unknown History Blue Meter) glimepiride 1 mg tablet 1 mg PO QDAY 04/14/25 04/13/25 History levocetirizine 5 mg tablet (Xyzal) 5 mg PO QDAY PRN allergy symptoms 04/14/25 Unknown History lisinopril 20 mg tablet 20 mg PO QDAY 04/14/25 04/15/25 07:00 History metformin 500 mg tablet 500 mg PO DAILY 04/14/25 04/13/25 History metoprolol succinate 50 mg 50 mg PO QDAY 04/14/25 04/15/25 07:00 History tablet,extended release 24 hr rosuvastatin 40 mg tablet 40 mg PO QDAY 04/14/25 04/13/25 History Allergy/AdvReac Type Severity Reaction Status Date / Time codeine Allergy Severe Hives Verified 05/06/25 13:39 Family History Mother COPD (chronic obstructive pulmonary disease) Father COPD (chronic obstructive pulmonary disease) Surgical History (Updated 05/06/25 @ 13:44 by Marisa Miranda) History of colonoscopy History of surgery on right wrist History of meniscectomy of left knee History of hernia repair History of coronary artery stent placement History of cardiac catheterization History of thrombectomy Social History Smoking Status: Current every day smoker tobacco type: smokeless tobacco alcohol intake: never substance use type: does not use what type of physical activity do you participate in: none Audit: Pertinent Findings Pertinent Findings EKG Perinent findings: 04/15/2025. Normal sinus rhythm. Septal infarct, age undetermined. Echo (EF%) pertinent findings: December 28, 2023. EF of 63%. No valvular disease present. Ascending aorta is dilated to 3.8 cm. Heart catheterization pertinent findings: December 31, 2023. Coronary revascularization?proximal to mid RCA with SYED. 99% to 0%. Consult pertinent findings: February 06, 2024. 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 1. Coronary artery disease-status post SYED to the proximal to mid right coronary artery. Lifelong aspirin. Brilinta for a year. Recommend to continue remaining active. 2. Hypertension-blood pressure elevated. Increase Toprol to 50 mg daily. Continue lisinopril. Monitor blood pressures at home. Additional pertinent findings: May 06, 2025. Hemoglobin is 10.0. Recommendation Anesthesia Recommendation Anesthesia recommendation: OPTIMIZED for anesthesia
[2025-05-10] VITALS (8 sets, daily range): BP systolic 108–154; BP diastolic 72–98; PULSE 60–74; RESP 16–18; TEMP 36.6–36.9; O2SAT 93–99; BMI 29.6
--- NOTE | 2025-05-10 07:39 | PRE.ANES_ITS ---
ASA Classification* ASA Classification ASA Classification: 3 Assessment & Plan Anesthesia* Anesthesia Assessment Anesthesia Assessment: Discussed sedation and/or anesthesia options, risks, benefits, and alternatives with patient/parents/legal guardian/POA. Questions invited. The patient/parents/legal guardian/POA seems to understand and agrees to proceed with anesthesia plan. Reviewed the physical assessment, medical history, allergy history and patient home medications list prior to surgery/procedure/anesthetic and documented any changes. Performed airway and anesthesia risk assessments. Anesthesia Type Anesthesia Type: MAC Anesthesia Focused Assessment* Airway Assessment Mouth opens: >3 cm Mallampati Score: II Labs Anesthesia Preop lab: CBC WBC, (4.4-11.0) 9.6 K/mm3 05/06/25, 08:32 RBC, (4.6-6.2) 4.12 M/mm3 L 05/06/25, 08:32 Hgb, (13.0-16.5) 10.0 g/dL L 05/06/25, 08:32 Hct, (40-54) 34.2 % L 05/06/25, 08:32 Plt Count, (150-450) 264 K/mm3 05/06/25, 08:32 CHEMISTRY Potassium, (3.3-5.1) 4.3 mmol/L 04/27/25, 10:00 Sodium, (133-145) 138 mmol/L 04/27/25, 10:00 Magnesium, (1.5-2.2) 2.1 mg/dL 04/27/25, 10:00 Phosphorus, (2.7-4.5) 3.2 mg/dL 04/27/25, 10:00 BUN, (4-19) 11 mg/dL 04/27/25, 10:00 Creatinine, (0.70-1.20) 1.16 mg/dL 04/27/25, 10:00 Glucose, (70-99) 185 mg/dL H 04/27/25, 10:00 POC Glucose, (74-106) 154 mg/dL H 04/15/25, 10:54 COAG PT, (11.7-14.9) 14.5 SECONDS 05/06/25, 08:32 Pre-Assessment Diagnosis/Proposed Procedure Planned Operative Procedure(s): (L) Insertion, Vascular Port left poss right Anesthesia History 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 When Was Last Pacemaker Check QUESTION #4 FULL TEXT: You/Your Family Experience fever (hyperthermia) with Anesthesia Last Oral Intake Last Oral intake: Last Oral Intake NPO since Meds taken in AM with sips of water? Meds patient instructed to take am of surgery PONV PONV - solar sales associate: PONV - solar sales associate Female No 05/06/25 13:44 HX of Motion Sickness No 05/06/25 13:44 HX of N/V After Surgery No 05/06/25 13:44 Non-Smoker No 05/06/25 13:44 Duration of Surgery greater Yes 05/06/25 13:44 than 60 minutes Number of Risk Factors 1 05/06/25 13:44 PONV Score Low Risk 05/06/25 13:44 Height & Weight Height & Weight: Anesthesia: Height & Weight Height 5 ft 10 in 05/06/25 09:26 Respiratory Assessment Respiratory Assessment - solar sales associate: Respiratory Tract Infection Hx - solar sales associate Hx Respiratory Tract Infection No 05/06/25 13:44 STOP Sleep Apnea STOP Sleep Apnea - solar sales associate: STOP Sleep Apnea - solar sales associate Hx Hypertension Yes: PER PT, controlled with 05/06/25 13:44 med Hx Sleep Apnea No 05/06/25 13:44 CPAP BIPAP Do you snore loudly (louder Yes 05/06/25 13:44 than talking or can be heard Do you often feel tired/ No 05/06/25 13:44 fatigued/ sleepy during daytime? Has anyone observed you stop No 05/06/25 13:44 breathing during sleep? STOP Results Positive 05/06/25 13:44 QUESTION #5 FULL TEXT : Do you snore loudly (louder than talking or can be heard through closed doors)? 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 Specify any problems Hx of Preganancy in last 3 N/A 05/06/25 13:44 Months Nurse Filling Out Transfusion MGRIFFITH 05/06/25 13:44 & Questions: Date: 05/06/25 05/06/25 13:44 Time: 13:47 05/06/25 13:44 Patient unable to answer at this time (ie. confused, unrespo /Reproduction History /Reproductive History - solar sales associate: /Reproductive Hx- solar sales associate Hx Now No 05/06/25 13:44 Gestational Age (in weeks): EDC: Hx Hx Para Hx Section SAB No 05/06/25 13:44 Does the father of the baby or his family experience fever w Father of the baby Malignant Hypertension history comment [facility] Medical History Low iron Cancer Chews tobacco Leg cramps Rectal pain Rectal bleeding Facial palsy Strabismus Lesion of penis Rectum cancer History of echocardiogram STEMI (ST elevation myocardial infarction) CAD (coronary artery disease) Wears hearing aid Loss of hearing Wears glasses Anxiety DVT (deep venous thrombosis) Restless legs Heartburn High cholesterol High blood pressure Hearing problem Myocardial infarct Home Medications ?Medication ?Instructions ?Recorded ?Last Taken ?Type Diltiazem 2% / Lidocaine 5% #1 ea 04/14/25 Unknown Rx ointment (compound) (Diltiazem 2%/Lidocaine 5% ointment (compound)) aspirin 81 mg tablet 81 mg PO QDAY 04/14/2504/13 History blood-glucose meter (Contour Plus 04/14/25 Unknown Hi story Blue Meter) glimepiride 1 mg tablet 1 mg PO QDAY 04/14/25 History levocetirizine 5 mg tablet (Xyzal) 5 mg PO QDAY PRN al lergy symptoms 04/14/25 Unknown History lisinopril 20 mg tablet 20 mg PO QDAY 04/14/2504/15 07:00 History metformin 500 mg tablet 500 mg PO DAILY 04/14/2504/27 History metoprolol succinate 50 mg 50 mg PO QDAY 04/14/2504/03 07:00 History tablet,extended release 24 hr rosuvastatin 40 mg tablet 40 mg PO QDAY 04/14/2504/13 History Allergy/AdvReac Type Severity Reaction Status Date / Time codeine Allergy Severe Hives Verified 05/06/25 13:39 Family History Mother COPD (chronic obstructive pulmonary disease) Father COPD (chronic obstructive pulmonary disease) Surgical History History of colonoscopy History of surgery on right wrist History of meniscectomy of left knee History of hernia repair History of coronary artery stent placement History of cardiac catheterization History of thrombectomy Social History Smoking Status: Current every day smoker tobacco type: smokeless tobacco alcohol intake: never substance use type: does not use what type of physical activity do you participate in: none Review of Systems (Anesthesia) ROS Narrative System reviewed and no additional complaints, except as documented.
[2025-05-10] MEDS: Lactated Ringers 1,000 ML 15 ML IV (08:24)
--- NOTE | 2025-05-10 09:26 | PCM.HP.STD ---
HPI - General General Date of Admission: 05/10/25 Date of Service: 05/10/25 Chief Complaint: Mediport placement HPI Narrative SABRINA REYES, is a 69 M who presents for elective Mediport placement surgery. We discussed the details of the planned procedure and he wishes to proceed. He presents today to have this placed. [facility] Medical History Low iron Cancer Chews tobacco Leg cramps Rectal pain Rectal bleeding Facial palsy Strabismus Lesion of penis Rectum cancer History of echocardiogram STEMI (ST elevation myocardial infarction) CAD (coronary artery disease) Wears hearing aid Loss of hearing Wears glasses Anxiety DVT (deep venous thrombosis) Restless legs Heartburn High cholesterol High blood pressure Hearing problem Myocardial infarct Home Medications ?Medication ?Instructions ?Recorded ?Last Taken ?Type Diltiazem 2% / Lidocaine 5% #1 ea 04/14/25 Unknown Rx ointment (compound) (Diltiazem 2%/Lidocaine 5% ointment (compound)) aspirin 81 mg tablet 81 mg PO QDAY 04/14/25 05/09/25 History blood-glucose meter (Contour Plus 04/14/25 Unknown History Blue Meter) glimepiride 1 mg tablet 1 mg PO QDAY 04/14/25 04/13/25 History levocetirizine 5 mg tablet (Xyzal) 5 mg PO QDAY PRN allergy symptoms 04/14/25 Unknown History lisinopril 20 mg tablet 20 mg PO QDAY 04/14/25 04/15/25 07:00 History metformin 500 mg tablet 500 mg PO DAILY 04/14/25 04/13/25 History metoprolol succinate 50 mg 50 mg PO QDAY 04/14/25 05/10/25 History tablet,extended release 24 hr rosuvastatin 40 mg tablet 40 mg PO QDAY 04/14/25 04/13/25 History Allergy/AdvReac Type Severity Reaction Status Date / Time codeine Allergy Severe Hives Verified 05/10/25 08:20 Family History Mother COPD (chronic obstructive pulmonary disease) Father COPD (chronic obstructive pulmonary disease) Surgical History History of colonoscopy History of surgery on right wrist History of meniscectomy of left knee History of hernia repair History of coronary artery stent placement History of cardiac catheterization History of thrombectomy Social History Smoking Status: Current every day smoker tobacco type: smokeless tobacco alcohol intake: never substance use type: does not use what type of physical activity do you participate in: none Vital Signs Vital Signs Vital Signs: 05/10/25 08:20 05/10/25 08:20 05/10/25 08:20 Temperature 97.8 F Temperature Source Temporal Pulse Rate 65 Respiratory Rate 16 Respiratory Pattern Normal Blood Pressure 154/92 H Blood Pressure Mean 112 Blood Pressure Source Monitor Blood Pressure Position Semi-Fowlers Blood Pressure Location Right Arm Baseline BP 154/92 Pulse Ox 99 Oxygen Delivery Method Room Air Weight Weight: 206 lb 5.643 oz Body Mass Index (BMI) 29.6 Physical Exam Const alert, oriented x3 and no apparent distress Assessment & Plan Assessment/Plan (1) Lesion of liver: PLAN: Plan The patient is a 69-year-old male with rectal cancer. He presents today to have a left-sided Mediport placed. We discussed the details of the planned procedure and he wishes to proceed. This will begin momentarily Charges/Coding Visit Charges Inpatient E&M: 72154 Init Hosp L3
[2025-05-10] MEDS: Lactated Ringers 500 ML IV (09:36)
[2025-05-10] MEDS: Cefazolin 1 GM/5 ML Vial 2 GM IV (09:45)
[2025-05-10] MEDS: fentaNYL 100 MCG/2 ML Ampul IV (10:28)
[2025-05-10] MEDS: Lidocaine 1% /Epi 1:100 (20ml) 20 ML Vial (10:42)
--- NOTE | 2025-05-10 11:26 | OP.PCM_ITS ---
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: No Type of Anesthesia: General and Local RN Documented Start/Stop Times: Operation Date: 05/10/25 09:30 Case Time Into Pre-Op 05/10/25 07:51 Out of Pre-Op 05/10/25 09:34 Anesthesia Start 05/10/25 09:47 Into Room 05/10/25 09:47 Procedure Start 05/10/25 10:09 Procedure End 05/10/25 11:06 Anesthesia End 05/10/25 11:21 Out of Room 05/10/25 11:21 Procedure Start Time: 10:09 Procedure Stop Time: 11:06 Select all DRAINS/GRAFTS/IMPLANTS that apply: Implanted device Implanted device details: MRI compatible port Special Medications: 2 g Ancef IV Estimated Blood Loss: 5 mL Specimen collected: No Description of surgery: The patient is a 69-year-old male who is being seen today for placement of a left sided Mediport in order to initiate chemotherapy. Preoperatively we discussed the details of the planned procedure including the risks benefits and alternatives. He wished to proceed. The patient was brought to the op room today following informed consent. Preoperative antibiotics were given and a timeout was performed. He was placed supine on the operative table with arms outstretched and arm boards. General anesthesia was induced. Once adequately sedated, his arms were comfortably tucked at his side. A roll was placed between the shoulders. His left upper chest and neck were prepped and draped in the usual sterile manner. Ultrasound was utilized to identify the left internal jugular vein. Local anesthetic was infiltrated into this area. Using the supplied needle and syringe I was able to gain access to the left subclavian vein. The blood return was a dark red, nonpulsatile, venous appearing blood. The supplied guidewire was then threaded through the aperture and the needle. C arm was utilized as the wire was advanced. It was noted that the wire repeatedly coiled within the innominate or very proximal SVC. Numerous attempts were used to manipulate the wire however this did not advance in feriorly towards the atrium. We changed to a different wire however this did not produce the desired direction of the wire. Eventually we switched to a angled Glidewire and this easily allowed advancement of the wire into the right atrium and ventricle. The wire was then secured to the drapes using curved hemostats. Local anesthetic was then injected into the area for the planned Mediport pocket. Incision was made using #15 blade. Bovie electrocautery was then used dissect down through subcutaneous tissues. A subcutaneous pocket was created. #11 blade was then used to make a incision near the entry point of the guidewire. The Mediport tubing was then tunneled from the larger incision up and out through the smaller incision. The tubing was then trimmed to about 26 cm. This was attached to the port hub. The hub was then affixed to the chest wall using Prolene suture x 2. The dilator and sheath were then threaded over the Glidewire. The Glidewire and dilator were then removed thus leaving the sheath in place. The free end of the tubing was then threaded down the sheath. C-arm was utilized repeatedly for this process and it appeared that the tip of the tubing was in the desired location either in the right atrium or SVC. The sheath was then extracted. C-arm was again used to confirm appropriate location of the tubing tip. The port was then tested. It key and flushed easily with both saline as well as heparin. No resistance to flushing. The tubing all laid nice without any acute bends or kinks. The Mediport hub appeared to be at a ideal depth to facilitate easy accessing. The incisions were closed with 3-0 Vicryl and 4-0 Vicryl. Skin glue was applied as dressing. Tegaderms were also placed. He was awake from anesthesia and taken to recovery in good condition Surgical Findings: See operative note Complications Complications: No Admit VTE Documentation VTE Present on Admission: No VTE Mechan Device Prophylaxis: SCD's VTE Pharm Prophylaxis ordered?: No Reason prophylaxis not ordered: Treatment Not Indicated
--- NOTE | 2025-05-10 11:29 | PCM.POST.ANE ---
Anesthesia: Postop Eval I Current Vital Signs Temperature: 98.4 F Pulse Rate: 74 Blood Pressure: 108/72 Respiratory Rate: 17 Pulse Ox: 95 Oxygen Delivery Method: Nasal Cannula Oxygen Flow Rate (L/min): 2 Assessment Airway patent: Yes Spontaneous unlabored respirations: Yes Mental status: Awake nausea: No Vomiting: No Anesthesia Complication: No Fluid Hydration Crystalloid volume administer (ml): 500 Total IV fluid infused: 500 Progress Note Anesthesia document: Postop Eval 1 completed: Yes
--- NOTE | 2025-05-10 11:35 | RAD_ITS ---
PROCEDURE: CHEST 1 VIEW (PORTABLE) 05/10/2025 REASON FOR EXAM: PORT PLACEMENT LEFT TECHNIQUE: Frontal view of the chest. COMPARISON: CT scan of the chest, abdomen, and pelvis dated 04/16/2025. CT PET scan was also performed on 05/04/2025 and that exam was reviewed. FINDINGS: Hardware/ tubes/ catheters/ lines: A left-sided central venous line tip is in the location of the proximal superior vena cava. Lungs: There is no atelectasis, consolidation, effusion, pneumothorax or pneumonic infiltrate. The 8 mm lung nodule in the left upper lobe seen on the most recent CT scan of the chest study is noted and appears similar. It is much better visualized on the CT exam and PET CT exam this may represent an infectious or inflammatory type process however neoplasm can not be entirely excluded. Heart and mediastinum: Heart size and configuration are within normal limits. Pulmonary vasculature and hilar structures are unremarkable. Trachea is midline. Bones: Degenerative changes of the thoracic spine are noted. There is a very subtle levoscoliosis of the lower thoracic spine. RAD/Chest 1 View (Portable) IMPRESSION: A left-sided central venous line tip is in the location of the proximal superio r vena cava. The 8 mm lung nodule in the left upper lobe seen on the most recent CT scan of the chest study is noted and appears similar. It is much better visualized on the CT exam and PET CT exam. This may represent a n infectious or inflammatory type process however neoplasm can not be entirely excluded. Reading Location: [id number]
--- NOTE | 2025-05-10 11:44 | EX.PCM.DISCH ---
Discharge Instructions Diet Discharge Diet: Light diet - advance as tolerated Activity Discharge Activity: Return to Normal Activity May shower in (days): 1 Ice area for (Minutes): 30 Lifting Restrictions: none Dressing / Incision Call your doctor if your incision/area has: Continuous Slow Oozing, Sudden Increased Bleeding, Increased Pain/ Swelling, Increased Redness, Foul Smelling Discharge and Swelling at the incision site Call your doctor if you observe: Fever of 101 or Higher Remove Dressing in: 3 days Cleanse incision/area with: Soap & Water Follow Up Care Please Follow Up With: Yaakov Roman MD When: 2 weeks. Please call office to schedule appointment Test Results: Test results from this visit will be discussed in further detail at your follow-up appointment, if applicable. Discharge Plan Admission Primary Reason for Your Visit: Mediport placement Attending Provider: Yaakov Roman Primary Care Provider: Wyatt Giron Instructions Print Language: Italian Discharge Orders/Prescriptions Prescriptions: New oxycodone 5 mg tablet 5 mg PO Q8H PRN (Reason: pain) 2 Days Qty: 5 0RF Continued metformin 500 mg tablet 500 mg PO DAILY (DME) blood-glucose meter [Contour Plus Blue Meter] Misc See Rx Instructions .Route Rx Instructions: As directed metoprolol succinate 50 mg tablet extended release 24 hr 50 mg PO QDAY lisinopril 20 mg tablet 20 mg PO QDAY glimepiride 1 mg tablet 1 mg PO QDAY aspirin 81 mg tablet 81 mg PO QDAY rosuvastatin 40 mg tablet 40 mg PO QDAY levocetirizine [Xyzal] 5 mg tablet 5 mg PO QDAY PRN (Reason: allergy symptoms) (DME) Diltiazem 2%/Lidocaine 5% ointment (compound) Ointment See Rx Instructions .Route Qty: 1 0RF Rx Instructions: Apply peasized amount to anus three times per day for hemorrhoids Referrals / Follow Up: Wyatt Giron, [Primary Care Provider, Family Practice] Disposition Disposition (needs filled in before D/C Order can be placed): Home, Self Care
--- NOTE | 2025-05-10 12:02 | POSTOPAN2_ITS ---
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
--- NOTE | 2025-05-10 12:02 | PCM.POSTANE2 ---
Anesthesia Postop Eval I Sum Postop Eval Completion status Anesthesia document: Postop Eval 1 completed: Yes Anesthesia Postop Eval I Summary Anesthesia Postop Eval I Summary: Anesthesia Postop Eval I: Assessment Summary Airway patent Yes 05/10/25 11:30 INVESTIGATIONS CONSULTANT.ABAR Spontaneous unlabored Yes 05/10/25 11:30 INVESTIGATIONS CONSULTANT.ABAR respirations Mental status Awake 05/10/25 11:30 INVESTIGATIONS CONSULTANT.ABAR nausea No 05/10/25 11:30 INVESTIGATIONS CONSULTANT.ABAR Vomiting No 05/10/25 11:30 INVESTIGATIONS CONSULTANT.ABAR Anesthesia Postop Eval I: Fluid Summary Crystalloid volume administer 500 05/10/25 11:30 INVESTIGATIONS CONSULTANT.ABAR (ml) Colloids volume administered ( ml) Blood Product volume administered (ml) Total IV fluid infused 500 05/10/25 11:30 INVESTIGATIONS CONSULTANT.ABAR Anesthesia Postop Eval I: Summary Notes Anesthesia Complication No 05/10/25 11:30 INVESTIGATIONS CONSULTANT.ABAR Anesthesia Complication Comment: Post-operative progress note Anesthesia: Postop Eval II Evaluation Mental status: Awake Pain Level: 0 nausea: No Vomiting: No
== END 2025-05-10 12:51 | disposition home or self-care (01) ==
LOC: SDC 07:36 → AC 07:37
PROVIDERS: PCP Family Medicine; Referring Provider Surgery; Visit Provider Surgery
PROC: (CPT 36561; principal; 2025-05-10 09:15)
DX: Z45.2 Encounter for adjustment and management of vascular access device (principal); C20 Malignant neoplasm of rectum; E78.00 Pure hypercholesterolemia, unspecified; K76.9 Liver disease, unspecified; Z79.82 Long term (current) use of aspirin; I25.10 Atherosclerotic heart disease of native coronary artery without angina pectoris; I10 Essential (primary) hypertension; F17.220 Nicotine dependence, chewing tobacco, uncomplicated; Z79.84 Long term (current) use of oral hypoglycemic drugs; Z79.899 Other long term (current) drug therapy
CPT/HCPCS: 36561; 00532; 71045; 77001; 82962; C1769; C1894; A4216; C1788; J2405

== ENCOUNTER 2025-05-12 21:17 | Emergency (ER) | payer MEDICARE, SELFPAY ==
[2025-05-12 21:18] VITALS: BP 159/89; PULSE 92; RESP 16; TEMP 36.8; O2SAT 98; BMI 44.4
[2025-05-12 23:15] LABS: Hematocrit 29.5 % (40-54); Hemoglobin 8.9 g/dL (13.0-16.5); Immature Granulocytes Count 0.060 X10^3/uL (0.0-0.0); Mean Corp Hgb Conc 30.2 g/dL (32-36); Mean Corpuscular Volume 79.7 fL (80-94); Mean Platelet Vol. 10.1 fl (6.2-12.0); NRBC Flagged by Analyzer 0 % (0-5); Platelet Count 202 K/mm3 (150-450); RBC Distribution Width CV 15.4 % (11.6-14.6); RBC Distribution Width SD 45.0 fl (35.1-43.9); Red Blood Count 3.70 M/mm3 (4.6-6.2); White Blood Count 12.0 K/mm3 (4.4-11.0)
[2025-05-12 23:25] LABS: Partial Thromboplast Time 25.2 Seconds (24.1-36.2); Prothrombin Time (Protime)PT. 14.2 SECONDS (11.7-14.9)
--- OUTSIDE RECORDS SUMMARY | 2025-05-12 23:25 | XMS RPT_ITS | CCD ---
Author Organization [facility] Care Team Providers Care Dishroom Attendant Name Role Phone Orion Craft DO Primary Care Provider Orion Craft DO Primary Care Provider Juan C RN, Radha Unavailable Unavailable Juan C RN, Radha Unavailable Unavailable Orion Craft DO Primary Care Provider [phone] Unavailable Primary Care Provider UnavailWyatt Esparza Primary Care Unavailab Wyatt Sal Referring Unavailab Ricardo Nicole Consulting Unavailable Ricardo Cross Attending Unavailable Wyatt Giron Primary Care Unavailab Wyatt Sal Referring Unavailab Ricardo Nicole Attending Unavailable Fe Mcrae Referring Unavailable Wyatt Giron Primary Care Unavailab Fe Martinez Attending Unavailable Wyatt Giron Primary Care Unavailab Wyatt Sal Referring Unavailab Fe Martinez Attending Unavailable Allergies Allergy Classification Reported Allergen(s) Allergy Type Date of Onset Reaction(s) Facility Opioid Agonists (3 sources) Codeine Drug Allergy 04-05-2015 [facility] (20 sources) Codeine Drug Allergy 04-05-2015 [facility] (1 source) Codeine Drug Allergy 04-15-2025 [facility] Repository Medications Current Medications Medication Drug Class(es) Dates Sig (Normalized) Sig (Original) glimepiride 1 mg oral tablet (20 sources) Sulfonylurea Start: 11-23-2022 End: 01-14-2024 glimepiride (Amaryl) 1 MG tablet One q AM 90 tablet 1 01/14/2024 Active Start: 07-18-2022 End: 08-17-2022 take 1 tablet by mouth once daily before breakfast glimepiride (Amaryl) 1 MG tablet Take 1 tablet (1 mg) by mouth every morning (before breakfast) for 30 doses. 30 tablet 2 07/18/2022 Active lisinopril 20 mg oral tablet (20 sources) Angiotensin Converting Enzyme Inhibitor Start: 12-29-2023 End: 12-28-2024 take 1 tablet by mouth once daily lisinopril 10 MG tablet Take 1 tablet (10 mg) by mouth daily. 30 tablet 11 12/29/2023 01/02/2024 Discontinued (Dose adjustment) Start: 10-01-2023 End: 12-29-2023 take 1 tablet by mouth once daily lisinopril 40 MG tablet take 1 tablet by mouth once daily 30 tablet 5 10/01/2023 12/29/2023 Discontinued (Stop taking at discharge) Start: 08-23-2023 End: 10-01-2023 take 1 tablet by mouth once daily lisinopril 30 MG tablet take 1 tablet by mouth once daily 90 tablet 1 08/23/2023 10/01/2023 Discontinued Start: 06-13-2022 End: 08-03-2022 lisinopril 20 MG tablet One q am Strength: 20 mg 30 tablet 3 06/13/2022 08/03/2022 Discontinued (Reorder) Start: 11-14-2020 End: 08-04-2024 take 1 tablet by mouth once daily lisinopril 20 MG tablet TAKE 1 TABLET BY MOUTH EVERY DAY 90 tablet 08/04/2024 Active metFORMIN hydrochloride 500 mg oral tablet (20 sources) Biguanide Start: 06-17-2023 End: 06-05-2024 take 2 tablets by mouth once daily in the morning, then take 1 tablet by mouth in the evening metFORMIN (Glucophage) 500 MG tablet TAKE 2 TABLETS BY MOUTH EVERY MORNING AND 1 TABLET BY MOUTH IN THE EVENING WITH SUPPER 270 tablet 1 06/05/2024 Active Start: 04-05-2022 End: 06-17-2023 take 1 tablet by mouth in the morning metFORMIN (Glucophage) 500 MG tablet Take 1 tablet (500 mg) by mouth in the morning and 1 tablet (500 mg) in the evening. Take with meals. Do all this for 180 doses. 180 tablet 0 07/18/2022 10/16/2022 Active 24 hr metoprolol succinate 50 mg extended release oral tablet (20 sources) beta-Adrenergic Lexis Start: 02-06-2024 End: 03-26-2024 take 1 tablet by mouth once daily metoprolol succinate XL (Toprol-XL) 50 MG 24 hr tablet Take 1 tablet (50 mg) by mouth daily. Do not crush or chew. 90 tablet 3 03/26/2024 Active Start: 12-28-2023 End: 12-29-2024 take 1 tablet by mouth once daily metoprolol succinate XL (Toprol-XL) 25 MG 24 hr tablet Take 1 tablet (25 mg) by mouth daily. Do not crush or chew. 30 tablet 11 12/30/2023 02/06/2024 Discontinued (Dose adjustment) PARoxetine hydrochloride 20 mg oral tablet (20 sources) Serotonin Reuptake Inhibitor Start: 12-28-2023 End: 12-29-2024 take 1 tablet by mouth once daily PARoxetine (Paxil) 20 MG tablet Take 1 tablet (20 mg) by mouth daily. 30 tablet 11 12/30/2023 Active Start: 09-14-2021 End: 12-29-2023 take 1 tablet by mouth once daily in the morning PARoxetine (Paxil) 10 MG tablet Take 1 tablet (10 mg) by mouth every morning. 90 tablet 1 08/23/2023 12/29/2023 Discontinued (Stop taking at discharge) predniSONE 10 mg oral tablet (1 source) Start: 11-14-2020 predniSONE (DELTASONE) 10 MG tablet 5 qday for 3 days, then 3 qday for 3 days, then one qday till gone 27 tablet 0 11/14/2020 Active rosuvastatin calcium 40 mg oral tablet (20 sources) HMG-CoA Reductase Inhibitor Start: 12-30-2023 End: 12-29-2024 take 1 tablet by mouth once daily rosuvastatin (Crestor) 40 MG tablet TAKE 1 TABLET BY MOUTH EVERY DAY 90 tablet 3 05/01/2024 Active Start: 12-28-2023 End: 12-29-2023 take 40 mg by mouth once daily 40 mg, Oral, Daily, Fir st dose on 12/28/23 at 0900 ticagrelor 90 mg oral tablet (20 sources) Start: 02-04-2024 End: 02-21-2024 take 1 tablet by mouth twice daily ticagrelor (Brilinta) 90 MG tablet Take 1 tablet (90 mg) by mouth 2 times daily. MAIL to patient 180 tablet 1 02/21/2024 Active Start: 01-02-2024 End: 12-30-2023 ticagrelor (Brilinta) 90 MG tablet Take 1 tablet (90 mg) by mouth 2 times daily. Do not start before January 02, 2024. 60 tablet 3 01/02/2024 12/30/2023 Discontinued Start: 01-02-2024 ticagrelor (Br ilinta) 90 MG tablet Take 1 tablet (90 mg) by mouth 2 times daily. Do not start before January 02, 2024. 60 tablet 3 01/02/2024 Active Start: 01-02-2024 ticagrelor (Br ilinta) 90 MG tablet Take 1 tablet (90 mg) by mouth 2 times daily. Do not start before January 02, 2024. 60 tablet 3 01/02/2024 Active Start: 12-27-2023 End: 12-28-2024 take 1 tablet by mouth twice daily ticagrelor (Brilinta) 90 MG tablet Take 1 tablet (90 mg) by mouth 2 times daily. MAIL to patient 60 tablet 11 12/30/2023 02/04/2024 Discontinued (Reorder) Completed/Discontinued Medications Medication Drug Class(es) Dates Sig (Normalized) Sig (Original) acetaminophen 325 mg oral tablet (2 sources) Start: 12-28-2023 End: 12-29-2023 take 1 tablet by mouth every four hours as needed for pain 650 mg, Oral, Every 4 hours PRN, mild pain (1-3), Fever > 100.5 F (38 C), Starting on 12/28/23 at 0002, [facility], Maximum dose of acetaminophen is 4000 mg from all sources in 24 hours. aspirin 81 mg chewable tablet (20 sources) Platelet Aggregation Inhibitor, Nonsteroidal Anti-inflammatory Drug Start: 12-29-2023 End: 12-29-2023 take 81 mg by mouth once daily 81 mg, Oral, Daily, First dose on 12/29/23 at 0900, [facility] take 1 tablet by mouth once jackelyn y aspirin 81 MG tablet Take 81 mg by mouth daily 0 Active calcium carbonate 500 mg chewable tablet (2 sources) Start: 12-28-2023 End: 12-29-2023 take 500 mg by mouth once daily 500 mg, Oral, Daily, First dose on 7/27/24 at 0800 cholecalciferol 9.52 unt/ml / glucose 357 mg/ml oral gel (2 sources) Vitamin D Start: 12-27-2023 End: 12-29-2023 15 g, Oral, As needed, low blood sugar, Starting on Sat12/27/23 at 2359, If blood glucose less than 50 mg/dL and patient ALERT and NOT NPO, give 2 tubes glucose gel. If blood glucose less than 70 mg/dL and patient ALERT and NOT NPO, give 1 tube glucose gel. Repeat blood glucose in 15 minutes. If blood glucose is less than 70 mg/dL, repeat treatment and recheck blood glucose in 15 minutes x2 and notify provider. 0.4 ml enoxaparin sodium 100 mg/ml prefilled syringe (2 sources) Low Molecular Weight Heparin Start: 12-29-2023 End: 12-29-2023 inject 40 mg by subcutaneous injection every twenty-four hours 40 mg, SubCUTAneous, Every 24 hours scheduled (Daily), First dose on Sat12/29/23 at 0900, Indication of Use: Prophylaxis-DVT/PE , Indications: Prophylaxis of Venous Thromboembolism 2 ml fentaNYL 0.05 mg/ml injection (2 sources) Opioid Agonist Start: 12-27-2023 End: 12-29-2023 IntraVENous, Code/trauma/sedati on medication, Starting on Sat12/27/23 at 2202 glucagon (rdna) 1 mg injection (2 sources) Antihypoglycemic Agent Start: 12-27-2023 End: 12-29-2023 1 mg, IntraMUSCular, PRN, low blood sugar, Blood glucose less than 70 mg/dL and patient NOT ALERT or NPO and does not have IV access., Starting on Sat12/27/23 at 2359, After administration, attempt intravenous access and start D5W at 100 mL/hr. Repeat blood glucose in 15 minutes x2 and notify provider. 150 ml glucose 50 mg/ml injection (4 sources) Start: 12-27-2023 End: 12-29-2023 12.5 g, IntraVENous, PRN, low blood sugar, Blood glucose less than 70 mg/dL and patient NOT ALERT or NPO., Starting on Sat12/27/23 at 2359, If patient does not respond within 5 minutes, repeat dose x1. Start D5W at 100 mL/hour until ordering provider can be reached. Repeat blood glucose in 15 minutes. If blood glucose is less than 70 mg/dL, repeat treatment and recheck blood glucose in 15 minutes x2. If using Glucostabilizer, dose as instructed per system. Start: 12-27-2023 End: 12-29-2023 100 mL/hr, IntraVENous, PRN, Blood sugar less than 70mg/dL, Starting on Sat12/27/23 at 2359, Start infusion following administration of dextrose 50% or glucagon. 1 ml heparin sodium, porcine 1000 unt/ml injection (2 sources) Unfractionated Heparin, Anti-coagulant Start: 12-27-2023 End: 12-29-2023 IntraVENous, Code/trauma/sedation medication, Starting on Sat12/27/23 at 2203 hydroCHLOROthiazide 25 mg oral tablet (20 sources) Thiazide Diuretic Start: 09-17-2021 End: 12-29-2023 hydroCHLOROthiazide (HYDRODiuril) 25 MG tablet Decrease to one half tab q day 90 tablet 1 08/23/2023 12/29/2023 Discontinued (Stop taking at discharge) insulin lispro 100 unt/ml injectable solution (2 sources) Insulin Analog Start: 12-28-2023 End: 12-29-2023 inject 12 [IU] by subcutaneous injection three times daily at mealtime 0-12 Units, SubCUTAneous, 3 times daily with meals, First dose on Sat12/28/23 at 0800, Medium Dose Correction Algorithm Glucose: Dose: LESS than 139 No Insulin 140-199 2 Unit 200-249 4 Units 250-299 6 Units 300-349 8 Units 350-400 10 Units Above 400 12 Units 50 ml magnesium sulfate 40 mg/ml injection (2 sources) Start: 12-28-2023 End: 12-28-2023 2,000 mg, IntraVENous, at 25 mL/hr, Administer over 2 Hours, Once, On Sat12/28/23 at 0430, For 1 dose, Recommended infusion rate not to exceed 1,000 mg (milligrams) per hour. 1 ml naloxone hydrochloride 0.4 mg/ml injection (2 sources) Opioid Antagonist Start: 12-27-2023 End: 12-29-2023 0.4 mg, IntraVENous, Every 5 min PRN, opioid reversal, respiratory depression, Starting on Sat12/27/23 at 2359, +++ For RR 250 ml nitroglycerin 0.2 mg/ml injection (2 sources) Nitrate Vasodilator Start: 12-28-2023 End: 12-29-2023 5-200 mcg/min (1.5-60 mL/hr), IntraVENous, Continuous, Starting on 12/28/23 at 0015, If Titrate Infusion? is No: Disregard instructions below. If Titrate infusion? is Yes: If rate LESS than 20 mcg/min: Titrate by 5 mcg/min no faster than every 5 minutes to goal. If rate GREATER than or equal to 20 mcg/min: Titrate by 10 mcg/min no faster than every 5 minutes to goal., Titrate Infusion? Yes, Initial Infusion Dose: Other, Other (mcg/min): 60, Goal of Therapy is: Chest pain sympton relief, Contact Provider if: SBP less than 90 mmHg omeprazole 40 mg delayed release oral capsule (4 sources) Proton Pump Inhibitor Start: 09-14-2021 End: 08-03-2022 take 1 capsule by mouth in the morning omeprazole (PriLOSEC) [address] capsule Take 40 mg by mouth in the morning. 0 09/14/2021 08/03/2022 Discontinued (Ineffective) 2 ml ondansetron 2 mg/ml injection (2 sources) Serotonin-3 Receptor Antagonist Start: 12-28-2023 End: 12-29-2023 take 4 mg intravenously every six hours as needed for nausea and vomiting 4 mg, IntraVENous, Every 6 hours PRN, nausea, vomiting, Starting on 12/28/23 at 0429 oxyCODONE hydrochloride 5 mg oral tablet (2 sources) Opioid Agonist Start: 12-28-2023 End: 12-28-2023 take 5 mg by mouth once 5 mg, Oral, Once, On 12/28/23 at 0130, For 1 dose Start: 12-28-2023 End: 12-28-2023 take 5 mg by mouth once 5 mg, Oral, Once, On Sat 12/02 12/24 at 0130, For 1 dose pantoprazole 20 mg delayed release oral tablet (2 sources) Proton Pump Inhibitor Start: 12-28-2023 End: 12-29-2023 take 20 mg by mouth once daily before breakfast 20 mg, Oral, Daily before breakfast, First dose (after last modification) on 12/28/23 at 0700, Do not crush, chew, or split. perflutren protein A microsphere (Optison) 3 mL in sodium chloride (PF) 0.9 % 10 mL IV syringe (2 sources) Start: 12-28-2023 End: 12-28-2023 0-10 mL, IntraVENous, IMG once PRN, other, Suboptimal echo image, Starting on 12/28/23 at 0929, For 1 dose, CV Procedural Medications, Administer via slow IVP for suboptimal echocardiogram enhancement. May administer as divided doses to reach optimal image enhancement simvastatin 80 mg oral tablet (20 sources) HMG-CoA Reductase Inhibitor Start: 08-30-2023 End: 12-29-2023 take 1 tablet by mouth once daily simvastatin (Zocor) 80 MG tablet Take 1 tablet (80 mg) by mouth Nightly for 90 doses. 90 tablet 1 08/30/2023 12/29/2023 Discontinued (Stop taking at discharge) Start: 02-09-2022 End: 08-30-2023 take 1 tablet by mouth once daily simvastatin (Zocor) 40 MG tablet Take 1 tablet (40 mg) by mouth Nightly. 90 tablet 1 08/23/2023 08/30/2023 Discontinued Problems Active Problems Problem Classification Problem Date Documented Date Episodic/Chronic Acute myocardial infarction (20 sources) Myocardial infarction; Translations: [ST elevation (STEMI) myocardial infarction of unspecified site] Onset: 12-27-19 24 12-27-2023 Chronic Anxiety disorders (20 sources) Generalized anxiety disorder; Translations: [Generalized anxiety disorder] Onset: 06-03-19 Resolved : 05-16-20 20 05-16-2020 Chronic Coronary atherosclerosis and other heart disease (20 sources) Coronary arteriosclerosis; Translations: [Atherosclerotic heart disease of [place] coronary artery without angina pectoris] Onset: 01-02-20 24 01-02-2024 Chronic Deficiency and other anemia (2 sources) Anemia, unspecified; Translations: [Anemia, unspecified] Onset: 04-15-20 Episodic Diabetes mellitus with complications (20 sources) Type 2 diabetes mellitus; Translations: [Type 2 diabetes mellitus without complications] Onset: 06-15-1903-18-2022 Chronic Disorders of lipid metabolism (20 sources) Mixed hypercholesterolemia and hypertriglyceridemia; Translations: [Mixed hyperlipidemia] Onset: 04-07-2004-07-2015 Chronic Essential hypertension (20 sources) Essential hypertension; Translations: [Essential (primary) hypertension] Onset: 06-03-1904-07-2015 Chronic Hemorrhoids (2 sources) Unspecified hemorrhoids; Translations: [Unspecified hemorrhoids] Onset: 04-15-20 Episodic Other gastrointestinal disorders (2 sources) Other fecal abnormalities; Translations: [Other fecal abnormalities] Onset: 04-15-20 Episodic Other screening for suspected conditions (not mental disorders or infectious disease) (8 sources) Patient encounter status; Translations: [Encounter for screening for malignant neoplasm of colon] 02-15-2023 Episodic Spondylosis; intervertebral disc disorders; other back problems (1 source) Sciatica; Translations: [Sciatica, left side] Episodic Past or Other Problems Problem Classification Problem Date Documented Da te Episodic/Chronic Abdominal hernia (1 source) Right inguinal hernia ; Translations: [Unilateral inguinal hernia, without obstruction or gangrene, not specified as recurrent] Onset: 02-27-2016 Resolved: 04-05-2016 04-05-2016 Episodic Diabetes mellitus with complications (20 sources) Hyperglycemia due to type 2 diabetes mellitus; Translations: [Type 2 diabetes mellitus with hyperglycemia] Onset: 09-14-2021 Resolved: 01-14-2024 03-18-2022 Chronic Other and unspecified benign neoplasm (20 sources) History of polyp of colon; Translations: [Personal history of colonic polyps] Onset: 05-03-2014 04-07-2015 Episodic Phlebitis; thrombophlebitis and thromboembolism (1 source) H/O: Deep vein thrombosis; Translations: [Personal history of other venous thrombosis and embolism] Resolved: 05-16-2020 05-16-2020 Episodic Results Test Name Value Interpretation Reference Range Facility Bedside Glucoseon 04-15-2025 [facility] GLU 154 mg/dL High 74-106 [facility] Comment on above: Result Comment: APPLE LERMA OF PATIENT CARE PER NURSING PROTOCOL Performed By: #### L 501.080 #### [facility] [address] [place], [address] Colonoscopy Reporton 025 Colonoscopy Report [facility] Medical Records Department [address] [place] [address] Colonoscopy Report MR#: [id number] Acct: [id number] Name: SABRINA REYES Rep #: [id number] : 1955 69 From: Ricardo Cross DO PCP: Dr. Wyatt Giron DO Status:REG [facility] Patient Name: Sabrina Reyes Procedure Date: 04/15/2025 11:31 AM Date of : 1955 Age: 69 Procedure: Colonoscopy Indications: Screening for colorectal malignant neoplasm Providers: Ricardo Cross DO Medicines: Monitored Anesthesia Care Patient Profile: This is a 69 year old male. Refer to note in patient chart for documentation of history and physical. Last Colonoscopy: none. The patient's first colonoscopy is today. Complications: No immediate complications. Procedure: Pre-Anesthesia Assessment: - Prior to the procedure, a History and Physical was performed, and patient medications and allergies were reviewed. The patient is competent. The risks and benefits of the procedure and the sedation options and risks were discussed with the patient. All questions were answered and informed consent was obtained. Patient identification and proposed procedure were verified by the physician in the pre-procedure area. Mental Status Examination: alert and oriented. Airway Examination: normal oropharyngeal airway and neck mobility. Respiratory Examination: clear to auscultation. CV Examination: normal. Prophylactic Antibiotics: The patient does not require prophylactic antibiotics. Prior Anticoagulants: The patient has taken no anticoagulant or antiplatelet agents except for NSAID medication. ASA Grade Assessment: II - A patient with mild systemic disease. After reviewing the risks and benefits, the patient was deemed in satisfactory condition to undergo the procedure. The anesthesia plan was to use monitored anesthesia care (MAC). Immediately prior to administration of medications, the patient was re-assessed for adequacy to receive sedatives. The heart rate, respiratory rate, oxygen saturations, blood pressure, adequacy of pulmonary ventilation, and response to care were monitored throughout the procedure. The physical status of the patient was re-assessed after the procedure. After I obtained informed consent, the scope was passed under direct vision. Throughout the procedure, the patient's blood pressure, pulse, and oxygen saturations were monitored continuously. The colonoscope was introduced through the anus and advanced to the cecum, identified by appendiceal orifice and ileocecal valve. The colonoscopy was performed without difficulty. The patient tolerated the procedure well. The quality of the bowel preparation was adequate. The ileocecal valve, appendiceal orifice, and rectum were photographed. Scope In: 11:45:20 AM Scope Withdrawal Time 0 hours 12 minutes 19 seconds Scope Out: 12:19:44 PM Total Procedure Duration Time 0 hours 34 minutes 24 seconds Findings: The digital rectal exam revealed a hard rectal mass palpated 2 to 3 cm from the anal verge. The mass was circumferential. An ulcerated partially obstructing large mass was found at the anus and in the rectum. The mass was circumferential. The mass measured three cm in length. In addition, its diameter measured seven mm. Oozing was present. This was biopsied with a cold forceps for histology. Coagulation for hemostasis using argon plasma at 1.3 liters/minute and 30 william was successful. Estimated blood loss was minimal. This was biopsied with a cold forceps for histology. Verification of patient identification for the specimen was done. Estimated blood loss was minimal. Three sessile polyps were found in the sigmoid colon, descending colon and transverse colon. The polyps were 10 mm in size. These polyps were removed with a hot snare. Resection and retrieval were complete. Verification of patient identification for the specimen was done. Estimated blood loss was minimal. Stool was found in the recto-sigmoid colon, in the sigmoid colon and in the cecum. Impression: - Rectal mass 2 to 3 cm from the anal verge. 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 Biopsied. Treated with argon plasma coagulation (APC). - Three 10 mm polyps in the sigmoid colon, in the descending colon and in the transverse colon, removed with a hot snare. Resected and retrieved. - Stool in the recto-sigmoid colon, in the sigmoid colon and in the cecum. Recommendation: - Discharge patient to home. - Resume previous diet. - Continue present medications. - Await pathology results. - Refer to an oncologist in 1 day. - Repeat colonoscopy in 1 year for surveillance. Procedure Code(s): --- Professional --- 43530, 59, Colonoscopy, flexible; with control of bleeding, any method 24606, Colonoscopy, flexible; with kristen (more content not included)... Normal [facility] MR/OP.[place] 04-15-2025 MR/OP.[facility] Medical Records Department [address] [place] [address] Provation Physician Letter MR#: [id number] Acct: [id number] Name: SABRINA REYES Rep #: [id number] : 1955 69 From: Ricardo Cross DO PCP: Dr. Wyatt Giron, Status:REG [facility] 04/15/2025 Wyatt Giron Re : Colonoscopy procedure for Sabrina Reyes Dear Mack This procedure was performed on April. My impressions and recommendations are as follows: Impressions : - Rectal mass 2 to 3 cm from the anal verge. 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 Biopsied. Treated with argon plasma coagulation (APC). - Three 10 mm polyps in the sigmoid colon, in the descending colon and in the transverse colon, removed with a hot snare. Resected and retrieved. - Stool in the recto-sigmoid colon, in the sigmoid colon and in the cecum. Recommendations : - Discharge patient to home. - Resume previous diet. - Continue present medications. - Await pathology results. - Refer to an oncologist in 1 day. - Repeat colonoscopy in 1 year for surveillance. My findings are described in the full procedure note, which is enclosed. If I can be of further assistance, please feel free to contact me at . Sincerely, Ricardo Cross DO 04/15/2025 12:29:30 PM This report has been signed electronically. 04/15/25 1229 Date Ricrado Cross DO Cosignmian Signature: Date (if indicated) CC: Dr. Wyatt Giron DO; Ricardo Cross DO Date Dictated: 04/15/25 1131 Date Transcribed: Marketing Consultant: POP Signed Melissa [facility] MR/POSTOP.Buddy 04-15-2025 MR/POSTOP.ANE [facility] Medical Records Department [address] [place] [address] Anesthesia Postop Eval I 04/15/25 1229 MR#: [id number] Acct: [id number] Name: SABRINA REYES Rep #: [id number] : 1955 69 From: Yaron Barnes PCP: Dr. Wyatt Giron, DO Status:REG [facility] Y Race: C Location: [place] [address] Anesthesia: Postop Eval I Current Vital Signs Temperature: 97.2 F Pulse Rate: 94 Blood Pressure: 101/65 Respiratory Rate: 18 Pulse Ox: 97 Oxygen Delivery Method: Room Air Assessment Airway patent: Yes Spontaneous unlabored respirations: Yes Mental status: Asleep nausea: No Vomiting: No Anesthesia Complication: No Fluid Hydration Crystalloid volume administer (ml): 600 Total IV fluid infused: 600 Progress Note Anesthesia document: Postop Eval 1 completed: Yes 04/15/25 1229 Date Yaron Barnes Cosigner Signature: Date CC: Signed Normal [facility] CBC W/Diff, Automatedon 04-03 Absolute Lymph 2.10 X10 3/uL Normal 0.83-4.51 [facility] Comment on above: Performed By: #### L 100.0100, [id number] #### [facility] [address] [place], [address] Absolute Neut 9.5 X10 3/uL High 2.0-7.7 [facility] Comment on above: Performed By: #### L 100.0100, L500.4050 #### [facility] [address] [place], [address] Basophils/100 WBC (Bld) 0.8 % Normal 0-1 [facility] Comment on above: Performed By: #### L 100.0100, L500.4050 #### [facility] [address] [place], [address] Eosinophils/100 WBC (Bld) 3.1 % Normal 0-5 [facility] Comment on above: Performed By: #### L 100.0100, L500.4050 #### [facility] [address] [place], [address] Erythrocyte distribution width (RBC) [Ratio] 15.2 % High 11.6-14.6 [facility] Comment on above: Performed By: #### L 100.0100, L500.4050 #### [facility] [address] [place], [address] Hematocrit (Bld) [Volume fraction] 38.4 % Low 40-54 [facility] Comment on above: Performed By: #### L 100.0100, L500.4050 #### [facility] [address] [place], [address] Hemoglobin (Bld) [Mass/Vol] 11.6 g/dL Low 13.0-16.5 [facility] Comment on above: Performed By: #### L 100.0100, L500.4050 #### [facility] [address] [place], [address] IG% 1.000 High 0.0-0.9 [facility] Comment on above: Result Comment: IG% - Immature Granulocytes (promyelocytes, myelocytes and metamyelocytes) > 1% indicates that a LEFT SHIFT is Present. Performed By: #### L 100.0100, L500.4050 #### [facility] [address] [place], [address] Lymphocytes/100 WBC (Bld) 16.0 % Low 19-41 [facility] Comment on above: Performed By: #### L 100.0100, L500.4050 #### [facility] [address] [place], [address] MCH (RBC) [Entitic mass] 25.4 pg Low 27.0-32.0 [facility] Comment on above: Performed By: #### L 100.0100, L500.4050 #### [facility] [address] [place], [address] MCHC (RBC) [Mass/Vol] 30.2 g/dL Low 32-36 [facility] Comment on above: Performed By: #### L 100.0100, L500.4050 #### [facility] [address] [place], [address] MCV (RBC) [Entitic vol] 84.0 fL Normal 80-94 [facility] Comment on above: Performed By: #### L 100.0100, L500.4050 #### [facility] [address] [place], [address] Monocytes/100 WBC (Bld) 7.1 % Normal 0-10 [facility] Comment on above: Performed By: #### L 100.0100, L500.4050 #### [facility] [address] [place], [address] Neutrophils/100 WBC (Bld) 72.0 % High 47-70 [facility] Comment on above: Performed By: #### L 100.0100, L500.4050 #### [facility] [address] [place], [address] Nucleated RBC (Bld) [#/Vol] 0 10*3/uL Normal 0-5 [facility] Comment on above: Performed By: #### L 100.0100, L500.4050 #### [facility] [address] [place], [address] Platelet mean volume (Bld) [Entitic vol] 10.0 fL Normal 6.2-12.0 [facility] Comment on above: Performed By: #### L 100.0100, L500.4050 #### [facility] [address] [place], [address] Platelets (Bld) [#/Vol] 306 10*3/uL Normal 150-450 [facility] Comment on above: Performed By: #### L 100.0100, L500.4050 #### [facility] [address] [place], [address] RBC (Bld) [#/Vol] 4.57 10*6/uL Low 4.6-6.2 [facility] Comment on above: Performed By: #### L 100.0100, L500.4050 #### [facility] [address] [place], [address] RDW SD 46.2 fl High 35.1-43.9 [facility] Comment on above: Performed By: #### L 100.0100, L500.4050 #### [facility] [address] [place], [address] WBC (Bld) [#/Vol] 13.2 10*3/uL High 4.4-11.0 [facility] Comment on above: Performed By: #### L 100.0100, L500.4050 #### [facility] [address] [place], [address] Comprehensive Metabolic Prof neon 04-14-2025 Albumin [Mass/Vol] 4.3 g/dL Normal 3.4-4.8 [facility] Comment on above: Performed By: #### L 100.0100, L500.4050 #### [facility] [address] [place], [address] Albumin/Globulin [Mass ratio] 1.2 {ratio} Normal 0.9-2.4 [facility] Comment on above: Performed By: #### L 100.0100, L500.4050 #### [facility] [address] [place], [address] ALK PHOS 81 U/L Normal 40-129 [facility] Comment on above: Performed By: #### L 100.0100, L500.4050 #### [facility] [address] [place], [address] ALT [Catalytic activity/Vol] 13 U/L Normal <=46 [facility] Comment on above: Performed By: #### L 100.0100, L500.4050 #### [facility] [address] [place], [address] AST [Catalytic activity/Vol] 18 U/L Normal <=37 [facility] Comment on above: Performed By: #### L 100.0100, L500.4050 #### [facility] [address] [place], [address] Bilirubin [Mass/Vol] 0.21 mg/dL Normal 0.00-1.30 [facility] Comment on above: Performed By: #### L 100.0100, L500.4050 #### [facility] [address] [place], [address] BUN/CRE 13.6 RATIO Normal 10-20 [facility] Comment on above: Performed By: #### L 100.0100, L500.4050 #### [facility] [address] [place], [address] Calcium [Mass/Vol] 9.8 mg/dL Normal 7.6-11.0 [facility] Comment on above: Performed By: #### L 100.0100, L500.4050 #### [facility] [address] [place], [address] Chloride [Moles/Vol] 101 mmol/L Normal 98-108 [facility] Comment on above: Performed By: #### L 100.0100, L500.4050 #### [facility] [address] [place], [address] CO2 [Moles/Vol] 21.1 mmol/L Normal 21.0-32.0 [facility] Comment on above: Performed By: #### L 100.0100, L500.4050 #### [facility] [address] [place], [address] Creatinine [Mass/Vol] 1.27 mg/dL High 0.70-1.20 [facility] Comment on above: Performed By: #### L 100.0100, L500.4050 #### [facility] [address] [place], [address] GAP 14 Normal 5-15 [facility] Comment on above: Performed By: #### L 100.0100, L500.4050 #### [facility] [address] [place], [address] GFR/1.73 sq M.predicted among non-blacks MDRD (S/P/Bld) [Vol rate/Area] 61 mL/min/{1.73_m2} Normal >60 [facility] Comment on above: Result Comment: mL/m in/1.73m2 CKD-EPI Creatinine Equation (2020) Performed By: #### L 100.0100, L500.4050 #### [facility] [address] [place], [address] Globulin (S) [Mass/Vol] 3.4 g/dL Normal 2.2-4.2 [facility] Comment on above: Performed By: #### L 100.0100, L500.4050 #### [facility] [address] [place], [address] Glucose [Mass/Vol] 173 mg/dL High 70-99 [facility] Comment on above: Performed By: #### L 100.0100, L500.4050 #### [facility] [address] [place], [address] Potassium [Moles/Vol] 4.5 mmol/L Normal 3.3-5.1 [facility] Comment on above: Performed By: #### L 100.0100, L500.4050 #### [facility] [address] [place], [address] Sodium [Moles/Vol] 136 mmol/L Normal 133-145 [facility] Comment on above: Performed By: #### L 100.0100, L500.4050 #### [facility] [address] [place], [address] T PROT 7.7 g/dL Normal 5.9-8.4 [facility] Comment on above: Performed By: #### L 100.0100, L500.4050 #### [facility] [address] [place], [address] Urea nitrogen [Mass/Vol] 17 mg/dL Normal 4-19 [facility] Comment on above: Performed By: #### L 100.0100, L500.4050 #### [facility] [address] [place], [address] Gastroenterology Visit Repor ton 04-14-2025 Gastroenterology Visit Report [facility] [address] [place] [address] OFFICE VISIT Date of Service: 04/14/25 MR#: [id number] Acct: [id number] Name: ERICSABRINA Nelida Rep #: [id number] : 1955 Provider: ISAEL Sanford Age/Sex: 69/M Location: [facility] Status: Signed Intake Intake Visit Reasons: BLOODY DIARRHEA ANEMIC Chief Complaint: Hemorrhoids [employer] Worker Required: No Accompanied by: Is patient in pain?: No Allergies codeine Allergy (Severe, Verified 04/14/25 07:35) Hives Medications ???Medication ???Instructions ???Recorded ???Confirmed ???Type Diltiazem 2% / Lidocaine 5% #1 ea 04/14/25 04/14/25 Rx ointment (compound) (Diltiazem 2%/Lidocaine 5% ointment (compound)) aspirin 81 mg tablet 81 mg PO QDAY 04/14/25 04/14/25 Hi story blood-glucose meter (Contour Plus 04/14/25 04/14/25 History Blue Meter) clotrimazole 1 % topical cream 1 applic topical BID 04/14/2504/03 History glimepiride 1 mg tablet 1 mg PO QDAY 04/14/25 04/14/25 His tory hyoscyamine sulfate 0.125 mg 0.125 mg sublingual BID-QID PRN 04/14/25 History sublingual tablet levocetirizine 5 mg tablet (Xyzal) 5 mg PO QDAY 04/14/25 04/14/25 H istory lisinopril 20 mg tablet 20 mg PO QDAY 04/14/25 04/14/25 Hi story metformin 500 mg tablet 500 mg PO BIDWMEAL 04/14/25 History metoprolol succinate 50 mg 50 mg PO QDAY 04/14/25 04/14/25 Hi story tablet,extended release 24 hr rosuvastatin 40 mg tablet 40 mg PO QDAY 04/14/25 04/14/25 Hi story ticagrelor 90 mg tablet (Brilinta) 90 mg PO BID 04/14/25 04/14/25 H istory Have you fallen in the past year?: No PFSH Medical History High cholesterol High blood pressure Hearing problem Myocardial infarct Family History Mother COPD (chronic obstructive pulmonary disease) Father COPD (chronic obstructive pulmonary disease) Social History Smoking Status: Never smoker alcohol intake: never substance use type: does not use what type of physical activity do you participate in: none HPI HPI Chief Complaint: Hemorrhoids Details: SABRINA REYES, is a 69 M who presents to the office today for establishment. Patient referred from primary care provider due to anemia, change in bowel habits and hemorrhoids. Over the last 8 weeks patient has had diarrhea at least 3 times per day. Stools are urgent and li quid. Around this time he changed his metformin dose. He has associated abdominal cramping and nausea. About 6 weeks ago he developed a large hemorrhoid. He has been trying abpu-ryk-eetmtds remedies without relief. He has to sit on 1 side to relieve the pain. Pain is worse with bowel movements. Last colonoscopy was 10 years ago with 1 polyp. ROS Const Constitutional: Positive for fatigue; No fever(s) or weight change ENT ENT: No difficulty swallowing Gastro GI: Positive for abdominal pain, bloating, change in bowel habits, constipation, diarrhea, heartburn, Blood in stool and nausea/dyspepsia; No belching, change in stool character, coffee ground emesis, cramping, difficulty swallowing, feeling full early, excessive flatus, incontinent of stools, Vomiting blood/hematemesis, loose stools, Black,tarry stools, pain with swallowing, vomiting or other Musc Musculoskeletal: Positive for joint pain, back pain, Arthritis, sciatica and restless legs Skin Skin: No yellowing of the eye or itchy eyes Neuro Neurology: Positive for restless legs Psych Psychiatric: Positive for anxiety, No depression, Positive for Compulsive Behavior and Positive for obsessions/compulsio ns Endo Endocrine: Positive for fatigue; No weight change Aller/Imm Allergy/Immunologic: No itchy eyes Foster/Lymp Hematologic/Lymphati c: Positive for easy bleeding and easy bruising Exam Const General: cooperative and uncomfortable Nutritional Appearance: obese Orientation: alert HENMT Head: normal to inspection Eyes General: appearance normal, both eyes and all related structures Neck Neck: normal visual inspection Chest Chest palpation inspection: normal inspection of the chest Resp Effort Inspection: normal respiratory effort GI Inspection: normal to inspection Rectal Exam: hemorrhoids Assessment and Plan Assessment and Plan (1) Anemia: Status: Acute (2) Loose stools: Status: Acute (3) Hemorrhoid: Status: Acute Plan: Sabrina is a 69-year-old male patient with past medical history of SD, hypertension and hyperlipidemia here today for evaluation. Patient having loose stool, abdominal pain, nausea and hemorrhoids over the past 8 weeks. Prior to this he had normal bowel movements. Last colonoscopy over 10 ye (more content not included)... Normal [facility] MR/PATEdwin 04-14-2025 MR/PAT.[facility] Medical Records Department [address] [place] [address] PAT - Anesthesia 04/14/25 1639 MR#: [id number] Acct: [id number] Name: SABRINA REYES Rep #: [id number] : 1955 69 From: Pillo Patton MD PCP: Dr. Wyatt Giron, DO Status:PRE SDC Y Race: C Location: EN Pre-Assessment Diagnosis/Proposed Procedure Planned Operative Procedure(s): cscope Anesthesia History Anesthesia History - manager mba: Anesthesia History - manager mba Hx Hospitalization No 04/14/25 15:48 Any Problems With Anesthesia No 04/14/25 15:48 Cholinesterase deficiency No 04/14/25 15:48 You/Your Family Experience No 04/14/25 15:48 fever (hyperthermia) with Relationship Recent Exposure to Contagious Disease Does patient have nerve No 04/14/25 15:48 stimulator Patient instructed to have device shut off --Does patient have Pacemaker or ICD? When Was Last Pacemaker Check QUESTION #4 FULL TEXT: You/Your Family Experience fever (hyperthermia) with Anesthesia Last Oral Intake Last Oral intake: Last Oral Intake NPO since Meds taken in AM with sips of water? Meds patient instructed to take am of surgery PONV PONV - manager mba: PONV - manager mba Female No 04/14/25 15:48 HX of Motion Sickness No 04/14/25 15:48 HX of N/V After Surgery No 04/14/25 15:48 Non-Smoker Yes 04/14/25 15:48 Duration of Surgery greater No 04/14/25 15:48 than 60 minutes Number of Risk Factors 1 04/14/25 15:48 PONV Score Low Risk 04/14/25 15:48 Respiratory Assessment Respiratory Assessment - manager mba: Respiratory Tract Infection Hx - manager mba Hx Respiratory Tract Infection No 04/14/25 15:48 STOP Sleep Apnea STOP Sleep Apnea - manager mba: STOP Sleep Apnea - manager mba Hx Hypertension Yes: controlled with med 04/14/25 15:48 Hx Sleep Apnea No 04/14/25 15:48 CPAP BIPAP Do you snore loudly (louder No 04/14/25 15:48 than talking or can be heard Do you often feel tired/ No 04/14/25 15:48 fatigued/ sleepy during daytime? Has anyone observed you stop No 04/14/25 15:48 breathing during sleep? STOP Results Negative 04/14/25 15:48 QUESTION #5 FULL TEXT : Do you snore loudly (louder than talking or can be heard through closed doors)? 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 Specify any problems Hx of Preganancy in last 3 N/A 04/14/25 15:48 Months Nurse Filling Out Transfusion NBUCHER 04/14/25 15:48 Questions: Date: 04/14/25 04/14/25 15:48 Time: 15:50 04/14/25 15:48 Patient unable to answer at this time (ie. confused, unrespo /Reproducti on History /Reproducti ve History - manager mba: /Reproducti ve Hx- manager mba Hx Now No 04/14/25 15:48 Gestational Age (in weeks): EDC: Hx Hx Para Hx Section SAB No 04/14/25 15:48 Does the father of the baby or his family experience fever w Father of the baby Malignant Hypertension history comment [facility] Medical History (Updated 04/14/25 @ 16:31 by Lucia Leiva) History of echocardiogram STEMI (ST elevation myocardial infarction) CAD (coronary artery disease) Wears hearing aid Loss of hearing Wears glasses Anxiety DVT (deep venous thrombosis) Restless legs Heartburn Non-smoker High cholesterol High blood pressure Hearing problem Myocardial infarct Home Medications ???Medication ???Instructions ???Recorded ???Last Taken ???Type Diltiazem 2% / Lidocaine 5% #1 ea 04/14/25 Unknown Rx ointment (compound) (Diltiazem 2%/Lidocaine 5% ointment (compound)) aspirin 81 mg tablet 81 mg PO QDAY 04/14/25 Unknown His tory blood-glucose meter (Contour Plus 04/14/25 Unknown History Blue Meter) clotrimazole 1 % topical cream 1 applic topical BID 04/14/25 Unkn own History glimepiride 1 mg tablet 1 mg PO QDAY 04/14/25 Unknown Hist ory hyoscyamine sulfate 0.125 mg 0.125 mg sublingual BID-QID PRN Un (more content not included)... [facility] 03-17-2025 Name of caller: Sabrina Reyes Contact phone number: [phone] Relationship to Patient: patient Provider: Dr Giron Practice: [facility] Chief Complaint/Reason for Call: 03/17/25 Pt calling to ask for a call back to schedule for an COLONOSCOPY at [facility] pt is needing an order Pls call pt with details wlm message sent to office Best time of day caller can be reached: AM Patient advised that office/PCP has 24-48 business hours to return their call: Yes [facility] 3608-11-[address] [facility] 36 Name of caller: Sabrina Contact phone number: [phone] Relationship to Patient: patient Provider: Dr. Craft Practice: [facility] Chief Complaint/Reason for Call: Patient called in to advise he found a new doctor and he will not be returning to this practice. Best time of day caller can be reached: N/A Patient advised that office/PCP has 24-48 business hours to return their call: Yes [facility] 3608-04-2024 36 Placed call to patient to discuss provider direction to schedule an appointment. Message left on voicemail to return call. [facility] 36 Recent Visits Date Type Provider Dept 01/14/24 Office Visit Orion Craft, DO [facility] 08/23/23 Office Visit Orion CraftDO [facility] Showing recent visits within past 365 days and meeting all other requirements Future Appointments No visits were found meeting these conditions. Showing future appointments within next 90 days and meeting all other requirements Requested Prescriptions Pending Prescriptions Disp Refills lisinopril 20 MG tablet [Pharmacy Med Name: LISINOPRIL 20 MG TABLET] 90 tablet 1 Sig: TAKE 1 TABLET BY MOUTH EVERY DAY Provider: Orion Craft DO Verified pharmacy: yes Verified day(s) supplied: yes Verified refill(s) needed (previous prescription showing no refills in chart): Yes Have you received any controlled medications from any other provider? No Overdue for visit: Yes If yes - patient scheduled? No Most recent labs completed in chart? Yes Hypertension: Lab Results Component Value Date NA 135 12/29/2023 K 4.4 12/29/2023 EGFR 71 01/14/2024 BUN 13 01/14/2024 CREATININE 1.12 01/14/2024 [facility] 36on 06-05-2024 36 Recent Visits Date Type Provider Dept 01/14/24 Office Visit Orion Love JulikathleenDO amairani [facility] 08/23/23 Office Visit Orion Love JuliasmitaDO [facility] Showing recent visits within past 365 days and meeting all other requirements Future Appointments No visits were found meeting these conditions. Showing future appointments within next 90 days and meeting all other requirements Requested Prescriptions Pending Prescriptions Disp Refills metFORMIN (Glucophage) 500 MG tablet [Pharmacy Med Name: metFORMIN HCl 500 MG Oral Tablet] 270 tablet 2 Sig: TAKE 2 TABLETS BY MOUTH EVERY MORNING AND 1 TABLET BY MOUTH IN THE EVENING WITH SUPPER Provider: Orion Craft DO Verified pharmacy: yes Verified day(s) supplied: yes Verified refill(s) needed (previous prescription showing no refills in chart): Yes Have you received any controlled medications from any other provider? N/A Overdue for visit: No If yes - patient scheduled? No Most recent labs completed in chart? Yes Diabetes: Lab Results Component Value Date HGBA1C 6.5 (H) 12/27/2023 MICROALBCREA < 30 mg 02/16/2022 BUNCREATININ SEE NOTE: 01/14/2024 K 4.4 12/29/2023 NA 135 12/29/2023 LDL 132 (A) 02/09/2022 HDL 39 (L) 02/21/2024 CHOLESTEROLT 185 08/23/2023 TRIG 156 (H) 02/21/2024 [facility] 36on 05-01-2024 36 Recent Visits Date Type Provider Dept 01/14/24 Office Visit Orion Love Luana, DO [facility] 08/23/23 Office Visit Orion Love Luana, DO [facility] Showing recent visits within past 365 days and meeting all other requirements Future Appointments No visits were found meeting these conditions. Showing future appointments within next 90 days and meeting all other requirements Requested Prescriptions Pending Prescriptions Disp Refills rosuvastatin (Crestor) 40 MG tablet [Pharmacy Med Name: ROSUVASTATIN CALCIUM 40 MG TAB] 90 tablet 1 Sig: TAKE 1 TABLET BY MOUTH EVERY DAY Provider: Cher Luna MD Verified pharmacy: yes Verified day(s) supplied: yes Verified refill(s) needed (previous prescription showing no refills in chart): Yes Have you received any controlled medications from any other provider? N/A Overdue for visit: Yes If yes - patient scheduled? No Most recent labs completed in chart? Yes None [facility] 36 03-30-2024 36 Recent Visits Date Type Provider Dept 01/14/24 Office Visit Orion Love Luana, DO [facility] 08/23/23 Office Visit Orion Love Luana, DO [facility] Showing recent visits within past 365 days and meeting all other requirements Future Appointments No visits were found meeting these conditions. Showing future appointments within next 90 days and meeting all other requirements Requested Prescriptions Pending Prescriptions Disp Refills metFORMIN (Glucophage) 500 MG tablet [Pharmacy Med Name: metFORMIN HCl 500 MG Oral Tablet] 300 tablet 2 Sig: TAKE 2 TABLETS BY MOUTH EVERY MORNING AND 1 TABLET BY MOUTH IN THE EVENING WITH SUPPER Provider: Orion Craft DO Verified pharmacy: yes Verified day(s) supplied: yes Verified refill(s) needed (previous prescription showing no refills in chart): Yes Have you received any controlled medications from any other provider? N/A Overdue for visit: Yes If yes - patient scheduled? No Most recent labs completed in chart? Yes Diabetes: Lab Results Component Value Date HGBA1C 6.5 (H) 12/27/2023 MICROALBCREA < 30 mg 02/16/2022 BUNCREATININ SEE NOTE: 01/14/2024 K 4.4 12/29/2023 NA 135 12/29/2023 LDL 132 (A) 02/09/2022 HDL 39 (L) 02/21/2024 CHOLESTEROLT 185 08/23/2023 TRIG 156 (H) 02/21/2024 Normal [facility] 36on 03-26-2024 36 NINFA: 02/06/24, last EK01/14/24, HR: 61, med pended for review Normal [facility] 36 Received fax from [employer] to refill metoprolol Normal [facility] Hepatic function 2000 panelo n 02-21-2024 Albumin [Mass/Vol] 4.4 g/dL 3.5 - 5.0 g/dL [facility] ALP [Catalytic activity/Vol] 62 U/L 38 - 126 U/L [facility] ALT [Catalytic activity/Vol] 24 U/L 0 - 49 U/L [facility] AST [Catalytic activity/Vol] 29 U/L 15 - 46 U/L [facility] Bilirubin [Mass/Vol] 0.6 mg/dL 0.2 - 1 .3 mg/dL [facility] Bilirubin.conjugated [Mass/Vol] 0.0 mg/dL 0.0 - 0.3 mg/dL [facility] Interpretation and review of laboratory results Normal [facility] Protein [Mass/Vol] 7.4 g/dL 6.3 - 8.2 g/dL [facility] Lipid 1996 panelon Cholesterol [Mass/Vol] 112 mg/dL NINF - 200 mg/dL [facility] Cholesterol in HDL [Mass/Vol] 39 mg/dL Low 40 - 60 mg/dL [facility] Cholesterol in LDL [Mass/Vol] 42 mg/dL 0 - <100 [facility] Cholesterol.total/Choles terol in HDL [Mass ratio] 3 {ratio} [facility] Comment on above: Ref Range: < 3 Low Risk for CHD 3-6 Mod Risk for CHD > 6 High Risk for CHD Interpretation and review of laboratory results Abnormal [facility] Triglyceride [Mass/Vol] 156 mg/dL High NINF - 150 mg/dL [facility] No Panel Informationon 02-20 [facility] [employer] Basic metabolic 1998 panelon 01-15-2024 Anion gap [Moles/Vol] 13 mmol/L Sum [facility] Calcium [Mass/Vol] 9.3 mg/dL 8.6 - 10. 3 mg/dL [facility] Chloride [Moles/Vol] 103 mmol/L 98 - 11 0 mmol/L [facility] CO2 [Moles/Vol] 21 mmol/L 20 - 32 mmol/L [facility] Creatinine [Mass/Vol] 1.12 mg/dL 0.70 - 1.35 mg/dL [facility] GFR/1.73 sq M.predicted among non-blacks MDRD (S/P/Bld) [Vol rate/Area] 71 mL/min/{1.73_m2} > OR = 60 mL/min/1.73m 2 [facility] [employer] Glucose [Mass/Vol] 95 mg/dL 65 - 99 mg/dL [facility] Comment on above: Fasting reference interval Potassium [Moles/Vol] 4.8 mmol/L 3.5 - 5.3 mmol/L [facility] Sodium [Moles/Vol] 137 mmol/L 135 - 146 mmol/L [facility] [employer] Urea nitrogen [Mass/Vol] 13 mg/dL 7 - 25 mg/d L [facility] Urea nitrogen/Creatinine [Mass ratio] SEE NOTE: [facility] [employer] Comment on above: Not Reported: BUN an d Creatinine are within reference range. [facility] ECG 12 leadOrdered By: Rajinder De La Garza on 01-14-2024 [facility] No Panel Informationon 01-01 Sinus Rhythm -Old anterior infarct. ABNORMAL [facility] [employer] No Panel InformationOrdered By: Medhat Adamson on 01-02-2024 [facility] [employer] Work Phone: Basic metabolic 1997 panelon 12-29-2023 Anion gap [Moles/Vol] 8 mmol/L 3 - 13 mmol/L [facility] Calcium [Mass/Vol] 9.0 mg/dL 8.4 - 10. 4 mg/dL [facility] [employer] Chloride [Moles/Vol] 106 mmol/L 98 - 10 7 mmol/L [facility] CO2 [Moles/Vol] 20 mmol/L Low 22 - 30 mmol/L [facility] Creatinine [Mass/Vol] 1.08 mg/dL 0.66 - 1.25 mg/dL [facility] [employer] GFR/1.73 sq M.predicted MDRD (S/P/Bld) [Vol rate/Area] 74.3 mL/min/{1.73_m2} - PINF [facility] Comment on above: Calculation based on the Chronic Kidney Disease Epidemiology Collaboration (CKD-EPI) equation refit without adjustment for race Glucose [Mass/Vol] 120 mg/dL High 70 - 100 mg/dL [facility] Interpretation and review of laboratory results Abnormal [facility] Potassium [Moles/Vol] 4.4 mmol/L 3.5 - 5.1 mmol/L [facility] Sodium [Moles/Vol] 135 mmol/L 135 - 145 mmol/L [facility] Urea nitrogen [Mass/Vol] 15 mg/dL 9 - 20 mg/d L [facility] CBC W Auto Differential pane l (Bld)on 12-29-2023 Basophils (Bld) [#/Vol] 0.0 10*3/uL 0.0 - 0.2 10*3/uL [facility] Basophils/100 WBC (Bld) 0.2 % 0.0 - 2.0 % [facility] Eosinophils (Bld) [#/Vol] 0.2 10*3/uL 0.0 - 0.5 10*3/uL [facility] Eosinophils/100 WBC (Bld) 1.2 % 0.0 - 6.0 % [facility] Erythrocyte distribution width (RBC) [Ratio] 14.9 % 11.5 - 15.0 % [facility] Hematocrit (Bld) [Volume fraction] 41.1 % 40.0 - 52.0 % [facility] Hemoglobin (Bld) [Mass/Vol] 13.2 g/dL 13.0 - 18.0 g/dL [facility] Immature granulocytes (Bld) [#/Vol] 0.1 10*3/uL High NINF - 0.1 10*3/uL [facility] Immature granulocytes/100 WBC (Bld) 0.5 % 0.0 - 2.0 % [facility] Interpretation and review of laboratory results Abnormal [facility] Lymphocytes (Bld) [#/Vol] 1.6 10*3/uL 1.0 - 4.3 10*3/uL [facility] Lymphocytes/100 WBC (Bld) 12.6 % Low 15.0 - 45.0 % [facility] MCH (RBC) [Entitic mass] 27.9 pg 26. 0 - 34.0 pg [facility] MCHC (RBC) [Mass/Vol] 32.1 % 30.5 - 36.0 % [facility] MCV (RBC) [Entitic vol] 86.9 fL 77.0 - 99.0 fL [facility] Monocytes (Bld) [#/Vol] 1.3 10*3/uL High 0.0 - 0.9 10*3/uL [facility] Monocytes/100 WBC (Bld) 10.0 % 5.0 - 13.0 % [facility] Neutrophils (Bld) [#/Vol] 9.7 10*3/uL High 1.8 - 7.5 10*3/uL [facility] Neutrophils/100 WBC (Bld) 75.5 % 38.0 - 82.0 % [facility] Nucleated RBC/100 WBC (Bld) [Ratio] 0.0 % [facility] Platelet mean volume (Bld) [Entitic vol] 10.3 fL 9.0 - 12.7 fL [facility] Platelets (Bld) [#/Vol] 169 10*3/uL 140 - 440 10*3/uL [facility] RBC (Bld) [#/Vol] 4.73 10*6/uL 4.40 - 5.9 0 10*6/uL [facility] WBC (Bld) [#/Vol] 12.9 10*3/uL High 3.6 - 10.7 10*3/uL [facility] Laboratory - Chemistry and C hemistry - challengeon 12-29-2023 Magnesium [Mass/Vol] 2.1 mg/dL 1.6 - 2 .3 mg/dL [facility] No Panel Informationon 12-28 P [place] 48 degrees [facility] MA Interval 141 ms [facility] QRS [place] 129 degrees [facility] QRSD Interval 104 ms [facility] QT Interval 389 ms [facility] QTC Interval 420 ms [facility] T Wave [place] -11 degrees [facility] Sinus rhythm RIGHT AXIS DEVIATION Probable anterolateral infarct, age indeterm ABNORMAL T, PROBABLE ISCHEMIA, ANT-LAT LEADS Electronically Signed On 12-29-2023 13:11:04 EDT by Radha Argueta MD - 12/29/2023 IMPRESSION: Sinus rhythm RIGHT AXIS DEVIATION Probable anterolateral infarct, age indeterm ABNORMAL T, PROBABLE ISCHEMIA, ANT-LAT LEADS Electronically Signed On 12-29-2023 13:11:04 EDT by Radha Hill [facility] Interpretation and review of laboratory results Normal [facility] Interpretation and review of laboratory results Normal [facility] Interpretation and review of laboratory results Abnormal [facility] POCT ACT 131 [facility] POCT ACT 201 High [facility] POCT ACT 214 High [facility] Performed by: [facility], [address] [place] [address] CLIA ID: [id number] [facility] Phosphate [Moles/Vol]on 12-02 Phosphate [Mass/Vol] 3.3 mg/dL 2.5 - 4 .5 mg/dL [facility] Vital signson 12-29-2023 Heart rate 70 /min bpm [facility] ABO and Rh group Confirm Nom (Bld)on 12-28-2023 ABO group Nom (Bld) A [facility] D Ag Ql (RBC) Positive [facility] Basic metabolic 1998 panelon 12-28-2023 Anion gap [Moles/Vol] 10 mmol/L 3 - 13 mmol/L [facility] Calcium [Mass/Vol] 8.9 mg/dL 8.4 - 10. 4 mg/dL [facility] Chloride [Moles/Vol] 104 mmol/L 98 - 10 7 mmol/L [facility] CO2 [Moles/Vol] 23 mmol/L 22 - 30 mmol/L [facility] Creatinine [Mass/Vol] 1.11 mg/dL 0.66 - 1.25 mg/dL [facility] GFR/1.73 sq M.predicted MDRD (S/P/Bld) [Vol rate/Area] 71.9 mL/min/{1.73_m2} - PINF [facility] Comment on above: Calculation based on the Chronic Kidney Disease Epidemiology Collaboration (CKD-EPI) equation refit without adjustment for race Glucose [Mass/Vol] 154 mg/dL High 70 - 100 mg/dL [facility] Interpretation and review of laboratory results Abnormal [facility] Potassium [Moles/Vol] 4.1 mmol/L 3.5 - 5.1 mmol/L [facility] Sodium [Moles/Vol] 137 mmol/L 135 - 145 mmol/L [facility] Urea nitrogen [Mass/Vol] 17 mg/dL 9 - 20 mg/d L [facility] CBC W Auto Differential pane l (Bld)on 12-28-2023 Basophils (Bld) [#/Vol] 0.0 10*3/uL 0.0 - 0.2 10*3/uL [facility] Basophils/100 WBC (Bld) 0.2 % 0.0 - 2.0 % [facility] Eosinophils (Bld) [#/Vol] 0.1 10*3/uL 0.0 - 0.5 10*3/uL [facility] Eosinophils/100 WBC (Bld) 0.6 % 0.0 - 6.0 % [facility] Erythrocyte distribution width (RBC) [Ratio] 14.7 % 11.5 - 15.0 % [facility] Hematocrit (Bld) [Volume fraction] 41.8 % 40.0 - 52.0 % [facility] Hemoglobin (Bld) [Mass/Vol] 13.3 g/dL 13.0 - 18.0 g/dL [facility] Immature granulocytes (Bld) [#/Vol] 0.1 10*3/uL High NINF - 0.1 10*3/uL [facility] [employer] Immature granulocytes/100 WBC (Bld) 0.5 % 0.0 - 2.0 % [facility] Interpretation and review of laboratory results Abnormal [facility] Lymphocytes (Bld) [#/Vol] 1.7 10*3/uL 1.0 - 4.3 10*3/uL [facility] Lymphocytes/100 WBC (Bld) 10.2 % Low 15.0 - 45.0 % [facility] MCH (RBC) [Entitic mass] 27.6 pg 26. 0 - 34.0 pg [facility] MCHC (RBC) [Mass/Vol] 31.8 % 30.5 - 36.0 % [facility] MCV (RBC) [Entitic vol] 86.7 fL 77.0 - 99.0 fL [facility] Monocytes (Bld) [#/Vol] 1.0 10*3/uL High 0.0 - 0.9 10*3/uL [facility] Monocytes/100 WBC (Bld) 6.2 % 5.0 - 13.0 % [facility] Neutrophils (Bld) [#/Vol] 13.6 10*3/uL High 1.8 - 7.5 10*3/uL [facility] Neutrophils/100 WBC (Bld) 82.3 % High 38.0 - 82.0 % [facility] Nucleated RBC/100 WBC (Bld) [Ratio] 0.0 % [facility] Platelet mean volume (Bld) [Entitic vol] 10.7 fL 9.0 - 12.7 fL [facility] Platelets (Bld) [#/Vol] 190 10*3/uL 140 - 440 10*3/uL [facility] RBC (Bld) [#/Vol] 4.82 10*6/uL 4.40 - 5.9 0 10*6/uL [facility] WBC (Bld) [#/Vol] 16.5 10*3/uL High 3.6 - 10.7 10*3/uL [facility] Laboratory - Chemistry and C hemistry - challengeon 12-28-2023 Glucose [Mass/Vol] 141 mg/dL High 70 - 100 mg/dL [facility] Troponin I.cardiac [Mass/Vol] 0.404 ng/mL Critically high NINF - 0.034 ng/mL [facility] Magnesium [Mass/Vol] 1.7 mg/dL 1.6 - 2 .3 mg/dL [facility] Glucose [Mass/Vol] 153 mg/dL High 70 - 100 mg/dL [facility] No Panel Informationon 12-27 Interpretation and review of laboratory results Abnormal [facility] Performed by: [facility], [address] [place] [address] CLIA ID: [id number] [facility] Sinus rhythm Anteroseptal infarct, age indeterminate BORDERLINE ST DEPRESSION, INFERIOR LEADS Electronically Signed On 12-28-2023 10:16:13 EDT by Radha Hill CV Radha Xiao MD - 12/28/2023 IMPRESSION: Sinus rhythm Anteroseptal infarct, age indeterminate BORDERLINE ST DEPRESSION, INFERIOR LEADS Electronically Signed On 12-28-2023 10:16:13 EDT by Radha Hill [facility] P [place] 29 degrees [facility] MA Interval 157 ms [facility] QRS [place] 42 degrees [facility] QRSD Interval 100 ms [facility] QT Interval 392 ms [facility] QTC Interval 459 ms [facility] T Wave [place] 32 degrees [facility] Sinus rhythm Probable anterior infarct, age indeterminate Minimal ST elevation, lateral leads ST depressions V3-V6 not present on previous ECG Electronically Signed On 12-28-2023 01:54:29 EDT by Selin Fisher MD - 12/28/2023 IMPRESSION: Sinus rhythm Probable anterior infarct, age indeterminate Minimal ST elevation, lateral leads ST depressions V3-V6 not present on previous ECG Electronically Signed On 12-28-2023 01:54:29 EDT by Selin Rosa [facility] Sinus rhythm Left axis deviation Borderline ST depression, inferior leads Borderline ST elevation, anterolateral leads ST changes not present on previous ECG from 03/07/2016 Electronically Signed On 12-28-2023 01:53:40 EDT by Selin Fisher MD - 12/28/2023 IMPRESSION: Sinus rhythm Left axis deviation Borderline ST depression, inferior leads Borderline ST elevation, anterolateral leads ST changes not present on previous ECG from 03/07/2016 Electronically Signed On 12-28-2023 01:53:40 EDT by Selin [employer] [facility] [employer] Interpretation and review of laboratory results Normal [facility] Interpretation and review of laboratory results Abnormal [facility] Performed by: [facility], [address] [place] [address] CLIA ID: [id number] [facility] No Panel InformationOrdered By: Radha Hill on 12-28-2023 P [place] 62 degrees [facility] [employer] Work Phone: MA Interval 156 ms [facility] Work Phone: QRS [place] 33 degrees [facility] [employer] Work Phone: QRSD Interval 104 ms [facility] Work Phone: QT Interval 396 ms [facility] [employer] Work Phone: QTC Interval 480 ms [facility] [employer] Work Phone: T Wave [place] 68 degrees [facility] Work Phone: [facility] Work Phone: No Panel InformationOrdered By: Selin Barraza on 12-28-2023 P [place] 51 degrees [facility] Work Phone: [phone] MA Interval 144 ms [facility] [employer] Work Phone: [phone] QRS [place] -33 degrees [facility] [employer] Work Phone: [phone] QRSD Interval 99 ms [facility] Work Phone: QT Interval 393 ms [facility] [employer] Work Phone: [phone] QTC Interval 447 ms [facility] [employer] Work Phone: T Wave [place] -9 degrees [facility] Work Phone: [facility] Work Phone: Phosphate [Moles/Vol]on 12-02 Phosphate [Mass/Vol] 3.5 mg/dL 2.5 - 4 .5 mg/dL [facility] Troponin I.cardiac [Mass/Vol ]on 12-28-2023 Interpretation and review of laboratory results Abnormal [facility] Patients with high levels of Biotin oral intake (ie >5 mg/day) may have falsely decreased Troponin levels. [facility] [employer] [facility] US Heart TransthoracicOrdere d By: Medhat Sanchez on 12-28-2023 Ao Root Index 1.88 cm/m2 [facility] [employer] Work Phone: Aortic Root 4.0 cm [facility] [employer] Work Phone: AR Max Velocity PISA 3.4 m/s [facility] [employer] Work Phone: AR PHT 733.7 ms [facility] [employer] Work Phone: Ascending Aorta 3.8 cm [facility] Work Phone: Ascending Aorta Index 1.78 cm/m2 [facility] Work Phone: AV Area by Peak Velocity 2.6 cm2 [facility] Work Phone: AV Area by VTI 2.7 cm2 [facility] Work Phone: AV Mean Gradient 5 mmHg [facility] Work Phone: AV Mean Velocity 1.1 m/s [facility] Work Phone: AV Peak Gradient 9 mmHg [facility] Work Phone: AV Peak Velocity 1.5 m/s [facility] Work Phone: AV Velocity Ratio 0.67 [facility] Work Phone: AV VTI 32.1 cm [facility] Work Phone: NEAL/BSA Peak Velocity 1.2 cm2/m2 [facility] Work Phone: NEAL/BSA VTI 1.3 cm2/m2 [facility] Work Phone: E/E' Lateral 11.50 [facility] Work Phone: E/E' Ratio (Averaged) 10.06 [facility] Work Phone: E/E' Septal 8.63 [facility] Work Phone: EF BP 63 % 55 - 100 % [facility] Work Phone: Fractional Shortening 2D 43 % 28 - 44 % [facility] Work Phone: [phone] Global Longitudinal Strain -16.8 % [facility] Work Phone: Interpretation and review of laboratory results Abnormal [facility] Work Phone: IVSd 1.0 cm 0.6 - 1.0 cm [facility] Work Phone: LA Diameter 3.8 cm [facility] Work Phone: LA Size Index 1.78 cm/m2 [facility] Work Phone: LA Volume 2C 64 mL Abnormal 18 - 58 mL [facility] Work Phone: LA Volume 4C 57 mL 18 - 58 mL [facility] Work Phone: LA Volume BP 61 mL Abnormal 18 - 58 mL [facility] Work Phone: [phone] LA Volume Index 2C 30 mL/m2 16 - 34 mL/m2 [facility] Work Phone: [phone] LA Volume Index 4C 27 mL/m2 16 - 34 mL/m2 [facility] Work Phone: [phone] LA Volume Index BP 29 ml/m2 16 - 34 ml/m2 [facility] Work Phone: LA/AO Root Ratio 0.95 [facility] Work Phone: [phone] LV E' Lateral Velocity 6 cm/s [facility] Work Phone: LV E' Septal Velocity 8 cm/s [facility] Work Phone: LV EDV A2C 129 mL [facility] Work Phone: [phone] LV EDV A4C 117 mL [facility] Work Phone: LV EDV BP 111 mL 67 - 155 mL [facility] Work Phone: LV EDV Index A2C 61 mL/m2 [facility] Work Phone: LV EDV Index A4C 55 mL/m2 [facility] Work Phone: LV EDV Index BP 52 mL/m2 [facility] Work Phone: LV Ejection Fraction A2C 59 % [facility] Work Phone: LV Ejection Fraction A4C 67 % [facility] Work Phone: LV ESV A2C 53 mL [facility] Work Phone: LV ESV A4C 39 mL [facility] Work Phone: LV ESV BP 41 mL 22 - 58 mL [facility] Work Phone: LV ESV Index A2C 25 mL/m2 [facility] Work Phone: LV ESV Index A4C 18 mL/m2 [facility] Work Phone: LV ESV Index BP 19 mL/m2 [facility] Work Phone: LV Mass 2D 167.4 g 88 - 224 g [facility] [employer] Work Phone: LV Mass 2D Index 78.6 g/m2 49 - 115 g/m2 [facility] [employer] Work Phone: LV RWT Ratio 0.26 [facility] [employer] Work Phone: LVIDd 5.4 cm 4.2 - 5.9 cm [facility] [employer] Work Phone: LVIDd Index 2.54 cm/m2 [facility] [employer] Work Phone: LVIDs 3.1 cm [facility] [employer] Work Phone: LVIDs Index 1.46 cm/m2 [facility] [employer] Work Phone: LVOT Area 3.8 cm2 [facility] [employer] Work Phone: LVOT Cardiac Output 6.1 liter/minute [facility] [employer] Work Phone: LVOT Diameter 2.2 cm [facility] [employer] Work Phone: LVOT Mean Gradient 2 mmHg [facility] [employer] Work Phone: LVOT Peak Gradient 4 mmHg [facility] [employer] Work Phone: LVOT Peak Velocity 1.0 m/s [facility] [employer] Work Phone: LVOT Stroke Volume Index 40.1 mL/m2 [facility] [employer] Work Phone: LVOT SV 85.5 ml [facility] [employer] Work Phone: LVOT VTI 22.5 cm [facility] [employer] Work Phone: LVOT:AV VTI Index 0.70 [facility] ealth Work Phone: LVPWd 0.7 cm 0.6 - 1.0 cm [facility] [employer] Work Phone: MV A Velocity 0.73 m/s [facility] [employer] Work Phone: MV E Velocity 0.69 m/s [facility] Work Phone: MV E Wave Deceleration Time 194.4 ms [facility] Work Phone: [phone] MV E/A 0.95 [facility] Work Phone: [phone] RA Area 4C 47.1 mL [facility] Work Phone: RV Basal Dimension 3.8 cm [facility] Work Phone: [phone] RV Free Wall Peak S' 15 cm/s [facility] Work Phone: [phone] RV Longitudinal Dimension 7.5 cm [facility] Work Phone: RV Mid Dimension 3.0 cm [facility] alth Work Phone: [phone] TAPSE 2.4 cm 1.7 cm [facility] Work Phone: [phone] TR Max Velocity 2.36 m/s [facility] lth Work Phone: [phone] TR Peak Gradient 22 mmHg [facility] alth Work Phone: [phone] [facility] Work Phone: [phone] US Heart Transthoracicon Left Ventricle: Left ventricle size is normal. Normal wall thickness. Normal left ventricular systolic function. EF by 2D [employer]psons Biplane is 63%. Global longitudinal strain is reduced with a value of -16.8%. See diagram for wall motion findings. Septal motion is consistent with bundle branch block. Right Ventricle: Right ventricle size is normal. Normal systolic function. Aorta: Mildly dilated sinuses of Valsalva. Mildly dilated ascending aorta. Ao ascending diameter is 3.8 cm. Pericardium: No pericardial effusion. No significant valvular abnormalities. Left Ventricle Left ventricle size is normal. Normal wall thickness. Normal left ventricular systolic function. EF by 2D [employer]ons Biplane is 63%. Global longitudinal strain is reduced with a value of -16.8%. See diagram for wall motion findings. Septal motion is consistent with bundle branch block. Right Ventricle Right ventricle size is normal. Normal systolic function. Left Atrium Left atrium size is normal. Left atrium size is normal (LA volume index 16-34 mL/m2). Right Atrium Right atrium size is normal. IVC/SVC IVC was not well visualized. Mitral Valve Thickened leaflets. Mildly calcified leaflets (anterior). Trace regurgitation. No stenosis noted. Tricuspid Valve Valve structure is normal. Mild (1+) regurgitation. Unable to assess RVSP due to not being able to assess RA pressure. Aortic Valve Trileaflet. Cusp sclerosis. Trace regurgitation. No stenosis. Stroke volume index is 40.1 mL/m2. Pulmonic Valve The pulmonic valve visualization is suboptimal but appears to be functioning normally. Trace regurgitation. Ascending Aorta Mildly dilated sinuses of Valsalva. Mildly dilated ascending aorta. Ao ascending diameter is 3.8 cm. Pericardium No pericardial effusion. Septum Interatrial septum was not well visualized. Study Details Image quality: adequate. Additional technique includes myocardial strain. Heart rate: 79 bpm. Blood pressure: 119/79 mmHg. The underlying ECG rhythm was sinus rhythm. Technical qualifiers: Technically difficult study with poor endocardial visualization. Ultrasound enhancement agent was given to enhance imaging. Comparison Study There is no prior study available for comparison Echo Additional Conclusions No significant valvular abnormalities. Wall Scoring Baseline Score Index: 1.12 The following segments are hypokinetic: apical anterior and apical lateral. All other segments are normal. CV CPACS Vital signsOrdered By: Radha Hill on 12-28-2023 Heart rate 88 /min bpm [employer] Work Phone: Vital signson 12-28-2023 Heart rate 83 /min bpm [facility] Vital signsOrdered By: Edel Barraza on 12-28-2023 Heart rate 78 /min bpm [employer] Work Phone: XR Chest Single viewon 12-27 No acute cardiopulmonary disease. Report Dictated on Electronically Signed By: Mayito Francis MD Electronically Signed Date/Time: 12/28/2023 7:58 AM [facility] Patient Name: SABRINA REYES : 1955 [facility]#: [id number] Exam Date/Time: 12/28/2023 07:28 Procedure: XR CHEST 1 VIEW Ordering Provider: TREVINO TIMOTHY Reason For Exam: chest pain PORTABLE CHEST X-RAY CLINICAL INDICATION: chest pain A portable frontal view of the chest was obtained. COMPARISON: None FINDINGS: The cardiac silhouette is within normal limits. No focal consolidation is seen within the lungs. There is no large pleural effusion or pneumothorax. The bony structures of the chest are unremarkable as visualized. [facility] Mayito Francis MD - 12/28/2023 Patient Name: SABRINA REYES : 1955 [facility]#: [id number] Exam Date/Time: 12/28/2023 07:28 Procedure: XR CHEST 1 VIEW Ordering Provider: TREVINO TIMOTHY Reason For Exam: chest pain PORTABLE CHEST X-RAY CLINICAL INDICATION: chest pain A portable frontal view of the chest was obtained. COMPARISON: None FINDINGS: The cardiac silhouette is within normal limits. No focal consolidation is seen within the lungs. There is no large pleural effusion or pneumothorax. The bony structures of the chest are unremarkable as visualized. IMPRESSION: No acute cardiopulmonary disease. Report Dictated on Electronically Signed By: aMyito Francis MD Electronically Signed Date/Time: 12/28/2023 7:58 AM EDT [facility] Radiology Study observation (narrative) [facility] XR Chest Single viewOrdered By: Mayito Francis on 12-28-2023 [facility] Basic metabolic 1998 panelon 12-27-2023 Anion gap [Moles/Vol] 14 mmol/L High 3 - 13 mmol/L [facility] Calcium [Mass/Vol] 10.0 mg/dL 8.4 - 10. 4 mg/dL [facility] Chloride [Moles/Vol] 104 mmol/L 98 - 10 7 mmol/L [facility] CO2 [Moles/Vol] 19 mmol/L Low 22 - 30 mmol/L [facility] Creatinine [Mass/Vol] 1.21 mg/dL 0.66 - 1.25 mg/dL [facility] GFR/1.73 sq M.predicted MDRD (S/P/Bld) [Vol rate/Area] 64.8 mL/min/{1.73_m2} - PINF [facility] Comment on above: Calculation based on the Chronic Kidney Disease Epidemiology Collaboration (CKD-EPI) equation refit without adjustment for race Glucose [Mass/Vol] 170 mg/dL High 70 - 100 mg/dL [facility] Interpretation and review of laboratory results Abnormal [facility] Potassium [Moles/Vol] 4.4 mmol/L 3.5 - 5.1 mmol/L [facility] Sodium [Moles/Vol] 137 mmol/L 135 - 145 mmol/L [facility] Urea nitrogen [Mass/Vol] 19 mg/dL 9 - 20 mg/d L [facility] CBC panel Auto (Bld)on 12-26 Erythrocyte distribution width (RBC) [Ratio] 14.6 % 11.5 - 15.0 % [facility] Hematocrit (Bld) [Volume fraction] 45.0 % 40.0 - 52.0 % [facility] Hemoglobin (Bld) [Mass/Vol] 14.7 g/dL 13.0 - 18.0 g/dL [facility] Interpretation and review of laboratory results Abnormal [facility] MCH (RBC) [Entitic mass] 27.4 pg 26. 0 - 34.0 pg [facility] MCHC (RBC) [Mass/Vol] 32.7 % 30.5 - 36.0 % [facility] MCV (RBC) [Entitic vol] 84.0 fL 77.0 - 99.0 fL [facility] Platelet mean volume (Bld) [Entitic vol] 10.8 fL 9.0 - 12.7 fL [facility] Platelets (Bld) [#/Vol] 220 10*3/uL 140 - 440 10*3/uL [facility] RBC (Bld) [#/Vol] 5.36 10*6/uL 4.40 - 5.9 0 10*6/uL [facility] WBC (Bld) [#/Vol] 10.9 10*3/uL High 3.6 - 10.7 10*3/uL [facility] ESR (Bld) [Velocity]Ordered By: Baltazar Ariza on 12-27-2023 Interpretation and review of laboratory results Abnormal [facility] Laboratory - Chemistry and C hemistry - challengeon 12-27-2023 Troponin I.cardiac [Mass/Vol] 0.406 ng/mL Critically high NINF - 0.034 ng/mL [facility] Average glucose Estimated from glycated hemoglobin (Bld) [Mass/Vol] 140 mg/dL [facility] Magnesium [Mass/Vol] 1.9 mg/dL 1.6 - 2 .3 mg/dL [facility] Laboratory - Coagulationon 0 12-27-2023 PT Coag (Bld) [Time] 11.4 s 9.0 - 12.0 s [facility] Laboratory - Hematology and Cell countson 12-27-2023 HbA1c (Bld) [Mass fraction] 6.5 % High [facility] - 5.7 % [facility] Comment on above: Normal less than 5.7 % Prediabetes 5.7% to 6.4% Diabetes 6.5% or higher --HgbA1C levels may not be accurate in patients who have renal disease, received recent blood transfusions, are anemic, or who have dyshemoglobinemia. Laboratory - Hematology and Cell countsOrdered By: Baltazar Ariza on 12-27-2023 ESR (Bld) [Velocity] 11 mm/h High [facility] Lipid 1996 panelon Cholesterol [Mass/Vol] 189 mg/dL NINF - 200 mg/dL [facility] Cholesterol in HDL [Mass/Vol] 37 mg/dL Low 40 - 60 mg/dL [facility] Cholesterol in LDL [Mass/Vol] 89 mg/dL 0 - <100 [facility] Cholesterol.total/Choles terol in HDL [Mass ratio] 5 {ratio} [facility] Comment on above: Ref Range: < 3 Low Risk for CHD 3-6 Mod Risk for CHD > 6 High Risk for CHD Interpretation and review of laboratory results Abnormal [facility] Triglyceride [Mass/Vol] 316 mg/dL High [facility] - 150 mg/dL [facility] Magnesium [Mass/Vol]on 12-26 Interpretation and review of laboratory results Normal [facility] Natriuretic peptide B [Mass/ Vol]Ordered By: Carissa Thrasher on 12-27-2023 Interpretation and review of laboratory results Abnormal [facility] Natriuretic peptide B (Bld) [Mass/Vol] 869 pg/mL High [facility] - 125 pg/mL [facility] No Panel Informationon 12-26 Interpretation and review of laboratory results Abnormal [facility] Interpretation and review of laboratory results Normal [facility] PT Coag (Bld) [Time]on 12-26 INR Coag (PPP) [Relative time] 1.0 {INR} 0.9 - 1.1 [facility] Comment on above: Recommended Anticoag ulant Therapy: SEE BELOW ----- INR of 2.0 - 3.0 : - Prophylaxis of Venous Thrombosis (high-risk surgery) - Treatment of Venous Thrombosis - Treatment of Pulmonary Embolism (Includes tissue heart valves, Acute Myocardial Infarction to prevent systemic embolism, Valvular Heart Disease, and Atrial Fibrillation) ----- INR of 2.5 - 3.5 : - Mechanical Prosthetic Valves (high risk) - If oral anticoagulant therapy is used to prevent Myocardial Infarction Troponin I.cardiac [Mass/Vol ]on 12-27-2023 Interpretation and review of laboratory results Abnormal [facility] Patients with high levels of Biotin oral intake (ie >5 mg/day) may have falsely decreased Troponin levels. [facility] aPTT Coag (Bld) [Time]on aPTT Coag (PPP) [Time] 23.1 s 20.0 - 30.5 s [facility] NOTE: The therapeutic time for Heparin anticoagulation, based on Xa activity inhibition, is an APTT of 46-80 seconds. [facility] CBC W Auto Differential pane l (Bld)Ordered By: Kristen Barroso on 02-15-2023 Basophils (Bld) [#/Vol] 0.1 10*3/uL 0.0 - 0.2 10*3/uL [facility] Basophils/100 WBC (Bld) 0.7 % 0.0 - 2.0 % [facility] Eosinophils (Bld) [#/Vol] 0.3 10*3/uL 0.0 - 0.5 10*3/uL [facility] Eosinophils/100 WBC (Bld) 3.3 % 1.0 - 6.0 % [facility] Erythrocyte distribution width (RBC) [Ratio] 15.1 % High 11.5 - 14.5 % [facility] Hematocrit (Bld) [Volume fraction] 47.9 % 40.0 - 52.0 % [facility] Hemoglobin (Bld) [Mass/Vol] 15.4 g/dL 13.0 - 18.0 g/dL [facility] Immature granulocytes (Bld) [#/Vol] 0.1 10*3/uL High NINF - 0.0 10*3/uL [facility] Immature granulocytes/100 WBC (Bld) 0.9 % High NINF - 0.0 % [facility] Interpretation and review of laboratory results Abnormal [facility] Lymphocytes (Bld) [#/Vol] 2.1 10*3/uL 1.0 - 4.3 10*3/uL [facility] Lymphocytes/100 WBC (Bld) 22.9 % 20.0 - 40.0 % [facility] MCH (RBC) [Entitic mass] 28.6 pg 26. 0 - 34.0 pg [facility] MCHC (RBC) [Mass/Vol] 32.2 % 32.0 - 36.0 % [facility] MCV (RBC) [Entitic vol] 89.0 fL 80.0 - 98.0 fL [facility] Monocytes (Bld) [#/Vol] 0.8 10*3/uL 0.0 - 0.8 10*3/uL [facility] Monocytes/100 WBC (Bld) 9.2 % 2.0 - 10.0 % [facility] Neutrophils (Bld) [#/Vol] 5.7 10*3/uL 1.8 - 7.0 10*3/uL [facility] Neutrophils/100 WBC (Bld) 63.0 % 40.0 - 80.0 % [facility] Platelet mean volume (Bld) [Entitic vol] 9.9 fL 7.4 - 12.4 fL [facility] Comment on above: MPV is a calculated measurement using platelet volume ratio Platelets (Bld) [#/Vol] 201 10*3/uL 140 - 440 10*3/uL [facility] RBC (Bld) [#/Vol] 5.38 10*6/uL 4.40 - 5.9 0 10*6/uL [facility] WBC (Bld) [#/Vol] 9.0 10*3/uL 3.6 - 10.7 10*3/uL [facility] Comprehensive metabolic 1998 panelon 02-15-2023 Albumin [Mass/Vol] 4.7 g/dL 3.5 - 5.0 g/dL [facility] ALP [Catalytic activity/Vol] 73 U/L 38 - 126 U/L [facility] ALT [Catalytic activity/Vol] 25 U/L 0 - 49 U/L [facility] Anion gap [Moles/Vol] 9 mmol/L 3 - 13 mmol/L [facility] AST [Catalytic activity/Vol] 24 U/L 15 - 46 U/L [facility] Bilirubin [Mass/Vol] 0.4 mg/dL 0.2 - 1 .3 mg/dL [facility] Calcium [Mass/Vol] 9.4 mg/dL 8.4 - 10. 4 mg/dL [facility] Chloride [Moles/Vol] 105 mmol/L 98 - 10 7 mmol/L [facility] CO2 [Moles/Vol] 23 mmol/L 22 - 30 mmol/L [facility] Creatinine [Mass/Vol] 1.10 mg/dL 0.66 - 1.25 mg/dL [facility] GFR/1.73 sq M.predicted MDRD (S/P/Bld) [Vol rate/Area] 73.1 mL/min/{1.73_m2} - PINF [facility] Comment on above: Calculation based on the Chronic Kidney Disease Epidemiology Collaboration (CKD-EPI) equation refit without adjustment for race Glucose [Mass/Vol] 135 mg/dL High 70 - 100 mg/dL [facility] Interpretation and review of laboratory results Abnormal [facility] Potassium [Moles/Vol] 4.6 mmol/L 3.5 - 5.1 mmol/L [facility] Protein [Mass/Vol] 8.1 g/dL 6.3 - 8.2 g/dL [facility] Sodium [Moles/Vol] 137 mmol/L 135 - 145 mmol/L [facility] Urea nitrogen [Mass/Vol] 20 mg/dL 9 - 20 mg/d L [facility] HbA1c (Bld) [Mass fraction]o n 02-15-2023 Average glucose Estimated from glycated hemoglobin (Bld) [Mass/Vol] 123 mg/dL [facility] Interpretation and review of laboratory results Abnormal [facility] Laboratory - Chemistry and C hemistry - challengeon 02-15-2023 TSH Qn 3.840 m[IU]/L [facility] Laboratory - Hematology and Cell countson 02-15-2023 HbA1c (Bld) [Mass fraction] 5.9 % High [facility] - 5.7 % [facility] Comment on above: Normal less than 5.7 % Prediabetes 5.7% to 6.4% Diabetes 6.5% or higher --HgbA1C levels may not be accurate in patients who have renal disease, received recent blood transfusions, are anemic, or who have dyshemoglobinemia. Lipid 1996 panelon 3 Cholesterol [Mass/Vol] 246 mg/dL High NINF - 200 mg/dL [facility] Cholesterol in HDL [Mass/Vol] 37 mg/dL Low 40 - 60 mg/dL [facility] Cholesterol in LDL [Mass/Vol] [facility] Comment on above: Calculated LDL inval id, triglycerides >400 mg/dl Cholesterol.total/Choles terol in HDL [Mass ratio] 7 {ratio} [facility] Comment on above: Ref Range: < 3 Low Risk for CHD 3-6 Mod Risk for CHD > 6 High Risk for CHD Interpretation and review of laboratory results Abnormal [facility] Triglyceride [Mass/Vol] 423 mg/dL High NINF - 150 mg/dL [facility] TSH Qnon 02-15-2023 Interpretation and review of laboratory results Normal [facility] CR Spine Lumbosacral 4+ View son 11-15-2020 CR Spine Lumbosacral 4+ Views Patient Name: SABRINA REYES Diagnostic Radiology ACCESSION EXAM DATE/TIME PROCEDURE ORDERING PROVIDER [id number] 11/15/2020 13:23 EDT CR Spine Lumbosacral 4+ DO CRAFT EUGENE F. Views CPT code 91425 Reason For Exam (CR Spine Lumbosacral 4+ Views) left sciatica Report LUMBAR SPINE, 5 VIEWS: INDICATION: Sciatica, low back pain COMPARISON: No previous studies are available for comparison. Frontal, bilateral oblique, lateral and coned-down lumbosacral spot views of the lumbar spine were obtained. There are 5 typical lumbar vertebrae. The bone mineral density is normal. The vertebral body heights are within normal limits. Disc space narrowing and anterolisthesis is noted at L4-L5. No spondylolisthesis nor spondylolysis is seen. 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 No fracture is noted. The paravertebral soft tissues are unremarkable. There is atherosclerosis of the aorta and iliac arteries. IMPRESSION: Arthritic changes. No acute process. Report Dictated on Workstation: [id number] Final Dictating Physician: DO MARCELO ALFRED Signed Date and Time: 11/15/2020 4:06 pm Signed by: DO MARCELO ALFRED Transcribed Date and Time: 11/15/2020 4:07 Normal [facility] XR LUMBAR SPINE (MIN 4 VIEWS )Ordered By: Orion Craft on 11-15-2020 Patient Name: SABRINA REYES Diagnostic Radiology ACCESSION EXAM DATE/TIME PROCEDURE ORDERING PROVIDER [id number] 11/15/2020 13:23 EDT CR Spine Lumbosacral 4+ DO CRAFT EUGENE F. Views CPT code 49663 Reason For Exam (CR Spine Lumbosacral 4+ Views) left sciatica Report LUMBAR SPINE, 5 VIEWS: INDICATION: Sciatica, low back pain COMPARISON: No previous studies are available for comparison. Frontal, bilateral oblique, lateral and coned-down lumbosacral spot views of the lumbar spine were obtained. There are 5 typical lumbar vertebrae. The bone mineral density is normal. The vertebral body heights are within normal limits. Disc space narrowing and anterolisthesis is noted at L4-L5. No spondylolisthesis nor spondylolysis is seen. 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 No fracture is noted. The paravertebral soft tissues are unremarkable. There is atherosclerosis of the aorta and iliac arteries. IMPRESSION: Arthritic changes. No acute process. Report Dictated on Workstation: [id number] --- Final --- Dictating Physician: DO MARCELO ALFRED Signed Date and Time: 11/15/2020 4:06 pm Signed by: DO MARCELO ALFRED Transcribed Date and Time: 11/15/2020 4:07 [facility] Work Phone: [facility] Incoming Radiology Results From [facility] - 11/15/2020 4:07 PM EDT Patient Name: SABRINA REYES Diagnostic Radiology ACCESSION EXAM DATE/TIME PROCEDURE ORDERING PROVIDER [id number] 11/15/2020 13:23 EDT CR Spine Lumbosacral 4+ DO CRAFT EUGENE F. Views CPT code 99285 Reason For Exam (CR Spine Lumbosacral 4+ Views) left sciatica Report LUMBAR SPINE, 5 VIEWS: INDICATION: Sciatica, low back pain COMPARISON: No previous studies are available for comparison. Frontal, bilateral oblique, lateral and coned-down lumbosacral spot views of the lumbar spine were obtained. There are 5 typical lumbar vertebrae. The bone mineral density is normal. The vertebral body heights are within normal limits. Disc space narrowing and anterolisthesis is noted at L4-L5. No spondylolisthesis nor spondylolysis is seen. 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 No fracture is noted. The paravertebral soft tissues are unremarkable. There is atherosclerosis of the aorta and iliac arteries. IMPRESSION: Arthritic changes. No acute process. Report Dictated on Workstation: [id number] --- Final --- Dictating Physician: DO MARCELO ALFRED Signed Date and Time: 11/15/2020 4:06 pm Signed by: DO MARCELO ALFRED Transcribed Date and Time: 11/15/2020 4:07 [facility] Work Phone: [facility] Work Phone: Vital Signs Date Time Vital Sign Value Performing Clinician Margaret moon 02-06-2024 14:41-0400 Body height 177.8 cm Lupe Forde SUEDE [employer]USHER [employer] Work Phone: [facility] 02-06-2024 14:41-0400 Body mass index (BMI) [Ratio] 29.56 kg/m2 Lupe Forde SUEDE BRUSHER [employer] OPERATOR Work Phone: [facility] 02-06-2024 14:41-0400 Body weight 93.44 kg Lupe Forde SUEDE BRUSHER [employer] OPERATOR Work Phone: [facility] 02-06-2024 14:41-0400 Diastolic blood pressure 80 mm[Hg] Lupe Forde SUEDE BRUSHER [employer] OPERATOR Work Phone: [facility] 02-06-2024 14:41-0400 Heart rate 69 /min Lupe Forde SUEDE BRUSHER [employer] OPERATOR Work Phone: [facility] 02-06-2024 14:41-0400 Respiratory rate 16 /min Lupe Forde SUEDE BRUSHER [employer] CE[employer] OPERATOR Work Phone: [facility] 02-06-2024 14:41-0400 SaO2% (BldA) [Mass fraction] 98 % Lupe Forde SUEDE BRUSHER [employer] OPERATOR Work Phone: [facility] 02-06-2024 14:41-0400 Systolic blood pressure 130 mm[Hg] Lupe Forde [employer]E [employer]HER [employer] OPERATOR Work Phone: [facility] 01-14-2024 10:45-0400 Diastolic blood pressure 84 mm[Hg] Orion Craft DO Work Phone: [facility] 01-14-2024 10:45-0400 Heart rate 68 /min Orion Craft DO Work Phone: [facility] 01-14-2024 10:45-0400 Systolic blood pressure 134 mm[Hg] Orion Craft DO Work Phone: [facility] 01-14-2024 10:02-0400 Body height 177.8 cm Orion Craft DO Work Phone: [facility] 01-14-2024 10:02-0400 Body mass index (BMI) [Ratio] 29.99 kg/m2 Orion Craft DO Work Phone: [facility] 01-14-2024 10:02-0400 Body temperature 97 [degF] Orion Craft DO Work Phone: [facility] 01-14-2024 10:02-0400 Body weight 94.8 kg Orion Craft DO Work Phone: [facility] 01-14-2024 10:02-0400 SaO2% (BldA) [Mass fraction] 99 % Orion Craft DO Work Phone: [facility] 01-02-2024 07:58-0400 Body height 177.8 cm Lupe Forde SUEDE BRUSHER [employer] OPERATOR Work Phone: [facility] 01-02-2024 07:58-0400 Body mass index (BMI) [Ratio] 29.47 kg/m2 Lupe Forde SUEDE BRUSHER [employer] OPERATOR Work Phone: [facility] 01-02-2024 07:58-0400 Body weight 93.17 kg Lupe Forde SUEDE BRUSHER - [employer]ACH CE[employer] OPERATOR Work Phone: [facility] 01-02-2024 07:58-0400 Diastolic blood pressure 88 mm[Hg] Lupe Forde SUEDE BRUSHER [employer]ACH CE[employer] OPERATOR Work Phone: [facility] 01-02-2024 07:58-0400 Heart rate 70 /min Lupe Forde SUEDE BRUSHER [employer] OPERATOR Work Phone: [facility] 01-02-2024 07:58-0400 Respiratory rate 16 /min Lupe Forde SUEDE BR[employer]HER [employer] OPERATOR Work Phone: [facility] 01-02-2024 07:58-0400 SaO2% (BldA) [Mass fraction] 97 % Lupe Forde [employer]E [employer]HER [employer] OPERATOR Work Phone: [facility] 01-02-2024 07:58-0400 Systolic blood pressure 146 mm[Hg] Lupe Forde [employer]E [employer]HER [employer] OPERATOR Work Phone: [facility] 12-29-2023 13:05-0400 Diastolic blood pressure 90 mm[Hg] [facility] 12-29-2023 13:05-0400 Heart rate 69 /min [facility] 12-29-2023 13:05-0400 SaO2% (BldA) [Mass fraction] 100 % [facility] 12-29-2023 13:05-0400 Systolic blood pressure 128 mm[Hg] [facility] Physician [facility] 12-29-2023 03:06-0400 Body mass index (BMI) [Ratio] 29.51 kg/m2 [facility] 12-29-2023 03:06-0400 Body weight 93.31 kg [facility] 12-29-2023 03:00-0400 Body temperature 98.01 [degF] [facility] 12-29-2023 03:00-0400 Respiratory rate 20 /min [facility] 12-28-2023 09:46-0400 Body height 177.8 cm [facility] 09-27-2023 10:17-0400 Diastolic blood pressure 85 mm[Hg] [facility] 09-27-2023 10:17-0400 Systolic blood pressure 140 mm[Hg] [facility] 09-27-2023 10:08-0400 Heart rate 63 /min [facility] 09-27-2023 10:08-0400 SaO2% (BldA) [Mass fraction] 97 % [facility] 08-23-2023 10:37-0400 Diastolic blood pressure 84 mm[Hg] Orion Craft DO Work Phone: [facility] 08-23-2023 10:37-0400 Heart rate 76 /min Orion Craft DO Work Phone: [facility] 08-23-2023 10:37-0400 Systolic blood pressure 144 mm[Hg] Orion Craft DO Work Phone: [facility] 08-23-2023 10:02-0400 Body height 177.8 cm Orion Craft DO Work Phone: [facility] 08-23-2023 10:02-0400 Body mass index (BMI) [Ratio] 31.71 kg/m2 Orion Craft DO Work Phone: [facility] 08-23-2023 10:02-0400 Body temperature 97.11 [degF] Orion Craft DO Work Phone: [facility] 08-23-2023 10:02-0400 Body weight 100.25 kg Orion Craft DO Work Phone: [facility] 08-23-2023 10:02-0400 SaO2% (BldA) [Mass fraction] 96 % Orion Craft DO Work Phone: [facility] 02-15-2023 11:35-0400 Diastolic blood pressure 80 mm[Hg] Orion Craft DO Work Phone: [facility] 02-15-2023 11:35-0400 Heart rate 68 /min Orion Craft DO Work Phone: [facility] 02-15-2023 11:35-0400 Systolic blood pressure 128 mm[Hg] Orion Craft DO Work Phone: [facility] 02-15-2023 10:59-0400 Body height 177.8 cm Orion Craft DO Work Phone: [facility] 02-15-2023 10:59-0400 Body mass index (BMI) [Ratio] 30.85 kg/m2 Orion Craft DO Work Phone: [facility] 02-15-2023 10:59-0400 Body temperature 97.7 [degF] Orion Craft DO Work Phone: [facility] 02-15-2023 10:59-0400 Body weight 97.52 kg Orion Craft DO Work Phone: [facility] 02-15-2023 10:59-0400 SaO2% (BldA) [Mass fraction] 98 % Orion Craft DO Work Phone: [facility] 08-03-2022 12:00-0500 Diastolic blood pressure 86 mm[Hg] Orion Craft DO Work Phone: [facility] 08-03-2022 12:00-0500 Heart rate 76 /min Orion Craft DO Work Phone: [facility] 08-03-2022 12:00-0500 Systolic blood pressure 138 mm[Hg] Orion Craft DO Work Phone: [facility] 08-03-2022 10:45-0500 Body height 177.8 cm Orion Craft DO Work Phone: [facility] 08-03-2022 10:45-0500 Body mass index (BMI) [Ratio] 30.85 kg/m2 Orion Craft DO Work Phone: [facility] 08-03-2022 10:45-0500 Body temperature 97.39 [degF] Orion Craft DO Work Phone: [facility] 03-03-2023 10:45-0500 Body weight 97.52 kg Orion Craft DO Work Phone: [facility] 08-03-2022 [id number] SaO2% (BldA) [Mass fraction] 98 % Orion Craft DO Work Phone: [facility] Encounters Encounter Date Encounter Type Care Provider Facility Start: 04-15-2025 ambulatory Wyatt Giron Facility:[facility] Start: 04-14-2025 End: 04-14-2025 ambulatory Wyatt Giron Facility:[facility] Start: 04-14-2025 End: 04-14-2025 ambulatory [facility] Facility:[facility] Start: 03-17-2025 End: 03-17-2025 Telephone encounter Wyatt Giron DO Work Phone: [facility] Sched[facility] Comment on above: Orders (03/17/25 Pt calling to ask for a call back to schedule for an COLONOSCOPY at [facility] pt is needing an order Pls call pt with details [facility]lm message sent to office ) Start: 08-11-2024 End: 10-08-2024 Telephone encounter Orion Craft DO Work Phone: [facility] Comment on above: Other (New provider ) Start: 08-04-2024 End: 08-04-2024 Refill Orion Craft DO Work Phone: [facility] Start: 06-05-2024 End: 06-05-2024 Refill Orion Craft DO Work Phone: [facility] Start: 04-30-2024 End: 05-01-2024 Refill Cher Luna MD Work Phone: [facility] Start: 03-27-2024 End: 03-30-2024 Refill Orion Craft DO Work Phone: [facility] Start: 03-26-2024 End: 03-26-2024 Refill Medhat Adamson MD Work Phone: [facility] - [place] Start: 02-21-2024 End: 02-21-2024 Refill Lauren De La Garza MA [facility] Start: 02-06-2024 End: 02-06-2024 Office outpatient visit 25 minutes Lupe Forde SUEDE BRUSHER - LEACH CELL OPERATOR Work Phone: [facility] Comment on above: Coronary artery dise ase involving onondaga coronary artery of onondaga heart without angina pectoris (Primary Dx); Essential hypertension; Hypercholesterolemia with hypertriglyceridemia Start: 02-05-2024 End: 02-13-2024 Telephone encounter Orion Craft DO Work Phone: [facility] Comment on above: Med Refill Start: 01-31-2024 End: 02-04-2024 Refill Orion Craft DO Work Phone: [facility] Start: 01-14-2024 End: 01-14-2024 Office outpatient visit 25 minutes Orion Craft DO Work Phone: [facility] Comment on above: Type 2 diabetes edmond itus with hyperglycemia, without long-term current use of insulin (HCC) (Primary Dx); Essential hypertension; Hypercholesterolemia with hypertriglyceridemia; Coronary artery disease involving onondaga coronary artery of onondaga heart without angina pectoris; History of ST elevation myocardial infarction (STEMI) Start: 01-11-2024 End: 01-13-2024 Refill Orion Craft DO Work Phone: [facility] Start: 01-02-2024 End: 01-02-2024 Office outpatient visit 25 minutes Lupe Forde SUEDE BRUSHER [employer] Work Phone: [facility] Comment on above: Hypercholesterolemia with hypertriglyceridemia (Primary Dx); Essential hypertension; 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); Coronary artery disease involving onondaga coronary artery of onondaga heart without angina pectoris Start: 12-30-2023 End: 02-17-2024 Telephone encounter Shey Gonzalez SUEDE BRUSHER - LEACH CELL OPERATOR Work Phone: [facility] Comment on above: Other (Post AMI disc harge phone call) Start: 12-27-2023 End: 12-29-2023 Evaluation and management of inpatient [facility] Unassigned Physician [facility] CTV ICU T1 Comment on above: STEMI (ST elevation myocardial infarction) (HCC) (Primary Dx) Start: 11-28-2023 End: 11-29-2023 Refill Orion Chappella DO Work Phone: [facility] Start: 10-30-2023 Refill Orion Bustos lla DO Work Phone: [facility] Start: 10-01-2023 Orders Only Orion Bustos lla DO Work Phone: [facility] Start: 09-27-2023 End: 09-27-2023 Clinical Support [facility] Schedule [facility] Comment on above: Essential hypertensi on Start: 08-30-2023 Orders Only Orion Bustos lla DO Work Phone: [facility] Start: 08-26-2023 Refill Orion Bustos lla DO Work Phone: [facility] Clinical Communication Start: 08-23-2023 End: 08-23-2023 Office outpatient visit 25 minutes Orion Chappella DO Work Phone: [facility] Comment on above: Type 2 diabetes edmond itus without complication, without long- term current use of insulin (CMS/HCC) (HCC) (Primary Dx); HARIKA (generalized anxiety disorder); Essential hypertension; Prostate cancer screening; Hypercholesterolemia with hypertriglyceridemia Start: 06-17-2023 Orders Only Orion Love Juli lla DO Work Phone: [facility] Start: 04-02-2023 Orders Only Orion Bustos lla DO Work Phone: [facility] Start: 02-26-2023 Telephone encounter Orion Ivan Pranay etrilla DO Work Phone: [facility] Comment on above: Referral (02/26/23 P t calling to ask for another referral to [facility] in [place] location for COLONOSCOPY pls advise call pt with details ) Start: 02-18-2023 Telephone encounter Orion Pires jessica DO Work Phone: [facility] Comment on above: Referral ([facility] / Dr Weeks); Results; release Start: 02-16-2023 Refill Orion Love Juli wanga DO Work Phone: [facility] Start: 02-15-2023 End: 02-15-2023 Office outpatient visit 25 minutes Orion oLve Taamairani DO Work Phone: [facility] Comment on above: Type 2 diabetes emdond itus with hyperglycemia, without long-term current use of insulin (CMS/HCC) (HCC) (Primary Dx); Essential hypertension; Hypercholesterolemia with hypertriglyceridemia; History of colonic polyps; Colon cancer screening; HARIKA (generalized anxiety disorder) Start: 01-28-2023 Refill Orion Love Juli wanga DO Work Phone: [facility] Start: 10-10-2022 Refill Orion Love Juli lla DO Work Phone: [facility] Start: 08-03-2022 End: 08-03-2022 Office outpatient visit 25 minutes Orion Love Taamairani DO Work Phone: [facility] Comment on above: Type 2 diabetes edmond itus with hyperglycemia, without long-term current use of insulin (CMS/HCC) (HCC) (Primary Dx); Hypercholesterolemia with hypertriglyceridemia; Essential hypertension; Colon cancer screening; Prostate cancer screening Start: 07-18-2022 Orders Only Orion Love Juli lla DO Work Phone: [facility] Start: 06-13-2022 Refill Orion Bustos lla DO Work Phone: [facility] Start: 11-15-2020 End: 11-15-2020 Subsequent hospital visit by physician Orion Craft DO Work Phone: [facility] Comment on above: Left sided sciatica Procedures Date Procedure Procedure Detail Performing Clinician Start: 02-21-2024 Lipid 1996 panel - S alexx or Plasma Lupe Forde SUEDE BRUSHER - LEACH CELL OPERATOR Work Phone: Start: 01-14-2024 Basic metabolic pane l calcium total Lupe Forde SUEDE BRUSHER - LEACH CELL OPERATOR Work Phone: Start: 01-14-2024 Ecg routine ecg w/le ast 12 lds w/i&r Orion Ivan Craft DO Work Phone: Start: 01-02-2024 Ecg routine ecg w/le ast 12 lds w/i&r Medhat Adamson MD Work Phone: Start: 12-29-2023 Ecg routine ecg w/le ast 12 lds trcg only w/o i&r Baltazar Magallon MD Work Phone: Start: 12-29-2023 Basic metabolic pane l calcium total Baltazar Magallon MD Work Phone: Start: 12-28-2023 Glucose quantitative blood xcpt reagent strip Henrique Pavon MD Work Phone: Start: 12-28-2023 TTE w or wo fol wcon,Doppler Baltazar Magallon MD Work Phone: Start: 12-28-2023 Radiologic exam ches t single view Earnest Trevino DO Work Phone: Start: 12-28-2023 Ecg routine ecg w/le ast 12 lds trcg only w/o i&r Baltazar Magallon MD Work Phone: Start: 12-28-2023 ABO and Rh group [Ty pe] in Blood by Confirmatory method Selin Barraza MD Work Phone: Start: 12-28-2023 End: 12-28-2023 Basic metabolic panel calcium total Baltazar Magallon MD Work Phone: Start: 12-28-2023 Blood typing serologic abo Selin Barraza MD Work Phone: Start: 12-27-2023 Cardiac catheterizat ion study Henrique Pavon MD Work Phone: Start: 12-27-2023 Percutaneous coronar y intervention Henrique Pavon MD Work Phone: Start: 12-27-2023 End: 12-28-2023 Ecg routine ecg w/least 12 lds trcg only w/o i&r Jacinto Adamson MD Work Phone: Start: 12-27-2023 End: 12-27-2023 POCT ACT [facility] Unassigned Physician Start: 12-27-2023 End: 12-27-2023 POCT ACT [facility] Unassigned Physician Start: 12-27-2023 Basic metabolic pane l calcium total Selin Madi ADAMS Work Phone: Start: 12-27-2023 Lipid panel Luis Si [facility] DO Work Phone: Start: 12-27-2023 Lipid 1996 panel - S alexx or Plasma [facility] Start: 08-23-2023 Lipid 1996 panel - S alexx or Plasma Orion Craft DO Work Phone: Start: 02-15-2023 Lipid 1996 panel - S alexx or Plasma Orion Craft DO Work Phone: Start: 08-03-2022 Lipid 1996 panel - S alexx or Plasma Orion Luana DO Work Phone: Start: 02-09-2022 Lipid 1996 panel - S alexx or Plasma Orion Craft DO Work Phone: Start: 11-15-2020 Radex spine lumbosac ral minimum 4 views Orion Love Luana DO Work Phone: Start: 05-04-2014 Colonoscopy Orion selby DO Work Phone: Plan of Treatment Date Care Activity Detail Author Start: 02-10-2032 DTaP/Tdap/Td Vaccines (2 - Td or Tdap) DTaP/Tdap/Td Vaccines (2 - Td or Tdap) [facility] Start: 07-18-2025 Screening for malignant neoplasm of colon Colon cancer screen colonoscopy [facility] Work Phone: Start: 02-23-2025 Glaucoma screening Diabetes: Retinopathy Screening [facility] Start: 02-20-2025 Lipid panel Lipid Panel [facility] Start: 02-01-2025 COVID-19 Vaccine ( season) COVID-19 Vaccine ( season) [facility] Start: 02-01-2025 Influenza vaccination [facility] Start: 01-13-2025 Diabetes: Estimated Glomerular Filtration Rate for Kidney Health Diabetes: Estimated Glomerular Filtration Rate for Kidney Health [facility] Start: 12-28-2024 Diabetes: Estimated Glomerular Filtration Rate for Kidney Health Diabetes: Estimated Glomerular Filtration Rate for Kidney Health [facility] Start: 12-26-2024 Hemoglobin A1c measurement Diabetes: Hemoglobin A1C [facility] Start: 12-26-2024 Lipid panel Lipid Panel [facility] Start: 11-15-2024 Lipid panel Lipid screen [facility] Work Phone: Start: 08-22-2024 Diabetes: Estimated Glomerular Filtration Rate for Kidney Health Diabetes: Estimated Glomerular Filtration Rate for Kidney Health [facility] Start: 08-22-2024 Diabetic foot examination Diabetes: Foot Exam [facility] Start: 08-22-2024 Hemoglobin A1c measurement Diabetes: Hemoglobin A1C [facility] Start: 08-22-2024 Lipid panel Lipid Panel [facility] Start: 06-03-2024 Medicare Advantage Annual Wellness Visit Medicare Advantage Annual Wellness Visit [facility] Start: 05-15-2024 End: 05-15-2024 Patient encounter procedure [facility] Start: 05-04-2024 Screening for malignant neoplasm of colon [facility] Start: 04-10-2024 End: 04-10-2024 Patient encounter procedure [facility] Start: 02-28-2024 End: 02-28-2024 Patient encounter procedure 02/28/2024 9:30 AM EDT Office Visit [facility] [address] [place] [address] Orion Craft DO [address] [place] [address] [facility] Start: 02-16-2024 Hemoglobin A1c measurement Diabetes: Hemoglobin A1C [facility] Start: 02-16-2024 Lipid panel Lipid Panel [facility] Start: 02-13-2024 End: 01-01-2025 Hepatic function 2000 panel - Serum or Plasma Hepatic function panel Lab Routine Hypercholesterolemia with hypertriglyceridemia Expected: 02/13/2024 (Approximate), Expires: 01/01/2025 [facility] Comment on above: Expected: 02/13/2024 (Approximate), Expi res: 01/01/2025 Start: 02-13-2024 End: 01-01-2025 Lipid 1996 panel - Serum or Plasma Lipid panel Lab Routine Hypercholesterolemia with hypertriglyceridemia Expected: 02/13/2024 (Approximate), Expires: 01/01/2025 [facility] Comment on above: Expected: 02/13/2024 (Approximate), Expi res: 01/01/2025 Start: 02-02-2024 COVID-19 Vaccine ( season) COVID-19 Vaccine () [facility] Start: 02-02-2024 COVID-19 Vaccine ( season) COVID-19 Vaccine ( season) [facility] Start: 02-02-2024 Influenza vaccination Influenza Vaccine (#1) [facility] Start: 01-16-2024 End: 01-01-2025 Basic metabolic 1998 panel - Serum or Plasma Basic metabolic panel Lab Routine Essential hypertension Expected: 01/16/2024 (Approximate), Expires: 01/01/2025 [facility] Work Phone: Comment on above: Expected: 01/16/2024 (Approximate), Expi res: 01/01/2025 Start: 01-14-2024 End: 01-14-2024 Patient encounter procedure 01/14/2024 10:00 AM EDT Office Visit [facility] [address] [place] [address] Orion Craft, DO [address] [place] [address] [facility] Start: 01-02-2024 End: 01-02-2024 Patient encounter procedure 01/02/2024 8:00 AM EDT Office Visit [facility] [address] [facility] [address] [place] [id number] Lupe Forde, SUEDE BRUSHER - LEACH CELL OPERATOR [address], [address] [place] [address] [facility] Start: 11-01-2023 End: 11-01-2023 Clinical Support 11/01/2023 10:40 AM EDT Clinical Support [facility] [address] [place] [address] [facility] Start: 09-27-2023 End: 09-27-2023 Clinical Support 09/27/2023 10:00 AM EDT Clinical Support [facility] [address] [place] [address] [facility] Start: 08-23-2023 End: 08-22-2024 CBC W Auto Differential panel - Blood CBC auto differential Lab Routine Type 2 diabetes mellitus without complication, without long-term current use of insulin ([facility]/HCC) ([facility]) Expected: 08/23/2023 (Approximate), Expires: 08/22/2024 [facility] Work Phone: Comment on above: Expected: 08/23/2023 (Approximate), Expi res: 08/22/2024 Start: 08-23-2023 End: 08-22-2024 Comprehensive metabolic 1998 panel - Serum or Plasma Comprehensive metabolic panel Lab Routine Type 2 diabetes mellitus without complication, without long-term current use of insulin (CMS/HCC) (HCC) Expected: 08/23/2023 (Approximate), Expires: 08/22/2024 [facility] Comment on above: Expected: 08/23/2023 (Approximate), Expi res: 08/22/2024 Start: 08-23-2023 End: 08-22-2024 Hemoglobin A1c measurement Hemoglobin A1c Lab Routine Type 2 diabetes mellitus without complication, without long-term current use of insulin ([facility]/HCC) (HCC) Expected: 08/23/2023 (Approximate), Expires: 08/22/2024 [facility] Comment on above: Expected: 08/23/2023 (Approximate), Expi res: 08/22/2024 Start: 08-23-2023 End: 08-22-2024 Lipid 1996 panel - Serum or Plasma Lipid panel Lab Routine Hypercholesterolemia with hypertriglyceridemia Expected: 08/23/2023 (Approximate), Expires: 08/22/2024 [facility] Comment on above: Expected: 08/23/2023 (Approximate), Expi res: 08/22/2024 Start: 08-23-2023 End: 08-22-2024 PSA Total (Screening) PSA Total (Screening) Lab Routine Prostate cancer screening Expected: 08/23/2023 (Approximate), Expires: 08/22/2024 [facility] Comment on above: Expected: 08/23/2023 (Approximate), Expi res: 08/22/2024 Start: 08-16-2023 End: 08-16-2023 Patient encounter procedure [facility] Start: 08-04-2023 Diabetic foot examination Diabetes: Foot Exam [facility] Start: 08-04-2023 Hemoglobin A1c measurement Diabetes: Hemoglobin A1C [facility] Start: 08-04-2023 Lipid panel Lipid Panel [facility] Start: 06-03-2023 Medicare Advantage Annual Wellness Visit Medicare Advantage Annual Wellness Visit [facility] Start: 02-16-2023 Diabetes: Urine Albumin-Creatinine Ratio for Kidney Health Diabetes: Urine Albumin-Creatinine Ratio for Kidney Health [facility] Start: 02-16-2023 Urine screening for protein Diabetes: Urine Protein Screening [facility] Start: 02-15-2023 End: 02-15-2023 Patient encounter procedure 02/15/2023 11:00 AM EDT Office Visit [facility] [address], [place] [id number] Orion Craft DO [address] [place] [address] [facility] Start: 02-09-2023 Lipid panel Lipid Panel [facility] Start: 02-01-2023 COVID-19 Vaccine () COVID-19 Vaccine () [facility] Start: 02-01-2023 End: 02-01-2023 Patient encounter procedure 02/01/2023 Office Visit Family Medicine Orion Craft [address] [place] [address] [facility] Start: 11-03-2022 Hemoglobin A1c measurement Diabetes: Hemoglobin A1C [facility] Start: 08-05-2022 COVID-19 Vaccine (5 - Moderna series) COVID-19 Vaccine (5 - Moderna series) [facility] Start: 08-03-2022 End: 08-04-2023 CBC W Auto Differential panel - Blood CBC auto differential Lab Routine Type 2 diabetes mellitus with hyperglycemia, without long-term current use of insulin ([facility]) ([facility]) Expected: 08/03/2022 (Approximate), Expires: 08/04/2023 [facility] Comment on above: Expected: 08/03/2022 (Approximate), Expi res: 08/04/2023 Start: 08-03-2022 End: 08-04-2023 Comprehensive metabolic 1998 panel - Serum or Plasma Comprehensive metabolic panel Lab Routine Type 2 diabetes mellitus with hyperglycemia, without long-term current use of insulin (CMS/HCC) ([facility]) Expected: 08/03/2022 (Approximate), Expires: 08/04/2023 [facility] Comment on above: Expected: 08/03/2022 (Approximate), Expi res: 08/04/2023 Start: 08-03-2022 End: 08-04-2023 Hemoglobin A1c/Hemoglobin.total in Blood Hemoglobin A1c Lab Routine Type 2 diabetes mellitus with hyperglycemia, without long-term current use of insulin ([facility]/HCC) ([facility]) Expected: 08/03/2022 (Approximate), Expires: 08/04/2023 [facility] Comment on above: Expected: 08/03/2022 (Approximate), Expi res: 08/04/2023 Start: 08-03-2022 End: 08-04-2023 Lipid 1996 panel - Serum or Plasma Lipid panel Lab Routine Hypercholesterolemia with hypertriglyceridemia Expected: 08/03/2022 (Approximate), Expires: 08/04/2023 [facility] Comment on above: Expected: 08/03/2022 (Approximate), Expi res: 08/04/2023 Start: 08-03-2022 End: 08-04-2023 PSA screening PSA Screening Lab Routine Prostate cancer screening Expected: 08/03/2022 (Approximate), Expires: 08/04/2023 [facility] Comment on above: Expected: 08/03/2022 (Approximate), Expi res: 08/04/2023 Start: 08-03-2022 End: 08-03-2022 Patient encounter procedure 08/03/2022 Office Visit [facility] Orion Craft, DO [address], [place] [id number] [facility] Start: 05-11-2022 Hemoglobin A1c measurement Diabetes: Hemoglobin A1C [facility] Start: 08-13-2021 Zoster Vaccines (2 of 2) Zoster Vaccines (2 of 2) [facility] Start: 07-08-2021 COVID-19 Vaccine (4 - Booster for Moderna series) COVID-19 Vaccine (4 - Booster for Moderna series) [facility] Start: 02-15-2021 End: 02-15-2021 Patient encounter procedure 02/15/2021 Office Visit [facility] Orion Conteh, DO [address], [place] [id number] [facility] Start: 11-15-2020 Creatinine measurement Creatinine monitoring [facility] Work Phone: Start: 11-15-2020 Potassium monitoring Potassium monitoring [facility] Work Phone: Start: 11-14-2020 Annual Wellness Visit (AWV) Annual Wellness Visit (AWV) [facility] Work Phone: Start: 2014 Hepatitis B Vaccines (1 of 3 - Risk 3-dose series) Hepatitis B Vaccines (1 of 3 - Risk 3-dose series) [facility] Start: 2014 RSV Immunization aged 60 or older (1 - 1-dose 60+ series) RSV Immunization aged 60 or older (1 - 1-dose 60+ series) [facility] Start: 2014 RSV Immunization for Adults (1 - Risk 60-74 years 1-dose series) RSV Immunization for Adults (1 - Risk 60-74 years 1-dose series) [facility] Start: 2004 Shingles Vaccine (1 of 2) Shingles Vaccine (1 of 2) [employer] Work Phone: Start: 1994 Diabetes screen Diabetes screen [facility] Work Phone: Start: 1973 DTaP/Tdap/Td vaccine (1 - Tdap) DTaP/Tdap/Td vaccine (1 - Tdap) [facility] Work Phone: Start: 1972 Hepatitis C screening Hepatitis C Screening [facility] Start: 1966 Depression Screening Depression Screening [facility] Start: 1964 Diabetic foot examination Diabetes: Foot Exam [facility] Start: 1964 Glaucoma screening Diabetes: Retinopathy Screening [facility] Start: 1964 Preventive dental service Diabetes: Dental Exam [facility] Start: 1954 Hepatitis B Vaccines (1 of 3 - 3-dose series) Hepatitis B Vaccines (1 of 3 - 3-dose series) [facility] Start: 1954 Hepatitis C screening Hepatitis C screen [facility] Work Phone: Start: 1954 Medicare Advantage Annual Wellness Visit (AWV) Medicare Advantage Annual Wellness Visit (AWV) [facility] Start: 1954 Screening for malignant neoplasm of colon [facility] Blood type and Crossmatch panel - Blood Type and screen Lab STAT 12/28/2023 12:55 AM EDT [employer] Work Phone: Cardiac catheterizat ion study Cardiac procedure CV Cardiac Cath Routine STEMI (ST elevation myocardial infarction) (HCC) 12/27/2023 11:51 PM EDT [employer] Work Phone: Cologuard colon canc er screening Cologuard colon cancer screening Lab Routine Colon cancer screening Ordered: 08/03/2022 [employer] Work Phone: Comment on above: Ordered: 08/03/2022 End: 12-28-2023 ECG 12 lead ECG 12 lead CV ECG Routine Once for 1 Occurrences starting 12/28/2023 until 12/28/2023 [facility] Work Phone: Comment on above: Once for 1 Occurrences starting 12/28/19 24 until 12/28/2023 Immunizations Immunization Date Immunization Notes Care Provider Rosalee trujillo 05-19-2024 influenza virus vacc ine, unspecified formulation Wyatt Mack DO Work Phone: [facility] 06-08-2023 influenza virus vacc ine, unspecified formulation [facility] 01-20-2023 Influenza, Seasonal, Quadrivalent, Adjuvanted Orion Petrilla DO Work Phone: [facility] 04-07-2022 Influenza, Seasonal, Quadrivalent, Adjuvanted Orion Petrilla DO Work Phone: [facility] 02-09-2022 tetanus toxoid, redu negra diphtheria toxoid, and acellular pertussis vaccine, adsorbed Orion Petrilla DO Work Phone: [facility] 09-14-2021 pneumococcal conjuga te vaccine, 13 valent Orion Petrilla DO Work Phone: [facility] 09-09-2021 zoster vaccine recombinant E ugene Petrilla DO Work Phone: [facility] 06-18-2021 zoster vaccine recombinant E ugene Petrilla DO Work Phone: [facility] 05-13-2021 Influenza, Seasonal, Quadrivalent, Adjuvanted Orion Petrilla DO Work Phone: [facility] 05-16-2020 Influenza, High-dose , Quadv, 65 yrs +, IM (Fluzone) Orion Julilla DO Work Phone: [facility] 05-16-2020 pneumococcal polysac charide vaccine, 23 valent Orion Petrilla DO Work Phone: [facility] 05-03-2017 influenza, injectabl e, quadrivalent, preservative free Orion Petrilla DO Work Phone: [facility] [employer] Payers Date Payer Category Payer Self-pay 2025 Medicare [id number] 2022 Medicare O [facility] AARP MEDICAR E ADVANTAGE LIFE1 [id number] 2021 Medicare [id number] 2020 Medicare [id number] Unknown [id number] Unknown [id number] Unknown [id number] Unknown [id number] Social History Date Type Detail Facility Start: 11-14-2020 Tobacco smoking stat [facility] Never smoker [facility] Start: 11-14-2020 Tobacco use and exposure Never used [facility] Start: 11-14-2020 End: 08-03-2022 Alcohol intake Current non-drinker of alcohol (finding) [employer] Work Phone: Start: 11-14-2020 End: 12-28-2023 Alcohol intake [facility] Start: 11-16-2019 History SDOH Alcohol Frequency 1 [place] [facility] Work Phone: Start: 11-16-2019 History SDOH Social Connections Membership 2 [place] [facility] Work Phone: Start: 11-16-2019 History SDOH Social Connections Living 3 [place] [facility] Work Phone: Start: 11-16-2019 History SDOH Physica l Activity DPW 0 [place] [facility] Work Phone: Start: 11-16-2019 History SDOH Financial 5 [place] [facility] Work Phone: Start: 1955 Sex Assigned At Not on file S Ali Work Phone: Start: 08-03-2022 End: 12-28-2023 Tobacco use panel [facility] Start: 02-05-2023 End: 02-15-2023 Exposure to SARS-CoV-2 (event) Not sure [facility] Within the last year , have you been afraid of your partner or ex-partner? No [facility] Unable to Pay for Ho using in the Last Year Not on file [facility] Start: 01-02-2024 End: 08-04-2024 Alcoholic beverage intake Current drinker of alcohol (finding) [facility] Start: 01-02-2024 Alcohol Comment 1 beer a month [facility] Start: 01-01-2022 Sex Male (finding) [facility] Medical Equipment Procedure Code Equipment Code Equipment Origin al Text Equipment Identifier Dates USE twice a day [id number] Start: 08-06-2021 USE 1 STRIP TWO TIMES DAILY (BEFORE MEALS) AND IF NEEDED FOR SYMPTOMS OF IRREGULAR BLOOD GLUCOSE [id number] Start: 07-20-2022 End: 08-26-2023 USE 1 STRIP TWO TIMES DAILY (BEFORE MEALS) AND IF NEEDED FOR SYMPTOMS OF IRREGULAR BLOOD GLUCOSE [id number] Start: 08-26-2023 End: 10-30-2023 USE 1 STRIP TWO TIMES DAILY (BEFORE MEALS) AND IF NEEDED FOR SYMPTOMS OF IRREGULAR BLOOD GLUCOSE [id number] Start: 10-30-2023 Stent Cor Skypoi nt [id number] - [id number] Start: 12-27-2023 USE 1 STRIP TWO TIMES DAILY (BEFORE MEALS) AND IF NEEDED FOR SYMPTOMS OF IRREGULAR BLOOD GLUCOSE [id number] Start: 09-13-2021 Clinical Notes 06-13-2022 to 04-15-2025 Telephone Encounter - Princess Uribe Micha - 03/17/2025 7:36 AM EDTTelephone Encounter - Princess Muse - 03/17/2025 7:36 AM EDTTelephone Encounter - Cynthia Zavaleta MA - 08/11/2024 3:26 PM EDT Note Date & Type Note Facility 04-15-2025 Note [facility] Medical Records Department [address] [place] [address] History Physical Exam 04/15/25 1030 MR#: [id number] Acct: [id number] Name: SABRINA REYES Rep #: [id number] : 1955 69 From: Ricardo Cross DO PCP: Dr. Wyatt Giron, DO Status:[facility] Location: [place] [address] HPI - General General Date of Admission: 04/15/25 Date of Service: 04/15/25 Chief Complaint: Anemia and diarrhea HPI Narrative SABRINA REYES, is a 69 M who presents for evaluation of anemia, and diarrhea and hemorrhoids. Patient referred from primary care provider due to anemia, change in bowel habits and hemorrhoids. Over the last 8 weeks patient has had diarrhea at least 3 times per day. Stools are urgent and liquid. Around this time he changed his metformin dose. He has associated abdominal cramping and nausea. About 6 weeks ago he developed a large hemorrhoid. He has been trying [id number] remedies without relief. He has to sit on 1 side to relieve the pain. Pain is worse with bowel movements. Last colonoscopy was 10 years ago with 1 polyp. [facility] Medical History History of echocardiogram STEMI (ST elevation myocardial infarction) CAD (coronary artery disease) Wears hearing aid Loss of hearing Wears glasses Anxiety DVT (deep venous thrombosis) Restless legs Heartburn Non-smoker High cholesterol High blood pressure Hearing problem Myocardial infarct Home Medications ???Medication ???Instructions ???Recorded ???Last Taken ???Type Diltiazem 2% / Lidocaine 5% #1 ea 04/14/25 Unknown Rx ointment (compound) (Diltiazem 2%/Lidocaine 5% ointment (compound)) aspirin 81 mg tablet 81 mg PO QDAY 04/14/25 Unknown His tory blood-glucose meter (Contour Plus 04/14/25 Unknown History Blue Meter) clotrimazole 1 % topical cream 1 applic topical BID 04/14/25 Unkn own History glimepiride 1 mg tablet 1 mg PO QDAY 04/14/25 Unknown Hist ory hyoscyamine sulfate 0.125 mg 0.125 mg sublingual BID-QID PRN Unknown History sublingual tablet dyspepsia levocetirizine 5 mg tablet (Xyzal) 5 mg PO QDAY 04/14/25 Unknown Hi story lisinopril 20 mg tablet 20 mg PO QDAY 04/14/25 Unknown His tory metformin 500 mg tablet 500 mg PO BIDWMEAL 04/14/25 Unknow n History metoprolol succinate 50 mg 50 mg PO QDAY 04/14/25 Unknown His tory tablet,extended release 24 hr rosuvastatin 40 mg tablet 40 mg PO QDAY 04/14/25 Unknown His tory ticagrelor 90 mg tablet (Brilinta) 90 mg PO BID 04/14/25 Unknown Hi story Allergy/AdvReac Type Severity Reaction Status Date / Time codeine Allergy Severe Hives Verified 04/14/25 15:47 Family History Mother COPD (chronic obstructive pulmonary disease) Father COPD (chronic obstructive pulmonary disease) Surgical History History of surgery on right wrist History of meniscectomy of left knee History of hernia repair History of coronary artery stent placement History of cardiac catheterization History of thrombectomy Social History Smoking Status: Never smoker alcohol intake: never substance use type: does not use what type of physical activity do you participate in: none ROS Constitutional Constitutional: Denies fatigue, fever(s), poor appetite, weight gain or weight loss Gastrointestinal Gastrointestinal: Denies belching, bloating, change in bowel habits, change in stool character, chewing difficulty, coffee ground emesis, constipation, cramping, diarrhea, dyspepsia, dysphagia, early satiety, excessive flatus, fecal incontinence, heartburn, hematemesis, hematochezia, hemorrhoids, loose stools, melena, nausea, odynophagia, rectal bleeding, tenesmus, vomiting or weight changes Physical Exam Const alert, oriented x3, no apparent distress and healthy appearing General Appearance: cooperative GI normal to inspection, nondistended, normoactive bowel sounds, soft to palpation, non-tender and non- distended Percussion: normal to percussion Rectal Exam: deferred Assessment Plan Assessment/Plan (1) Hemorrhoid: (2) Loose stools: (3) Anemia: PLAN: Assessment and Plan Assessment and Plan (1) Anemia: Status: Acute (2) Loose stools: Status: Acute (3) Hemorrhoid: Status: Acute Plan: Sabrina is a 69-year-old male patient with past medical history of SD, hypertension and hyperlipidemia here today for evaluation. Patient having loose stool, abdominal pain, nausea and hemorrhoids over the past 8 weeks. Prior to this he had normal bowel movements. Last colonoscopy over 10 years ago with 1 polyp. Upon exam he does have 1 large hemorrhoid at the 4:00 region (more content not included)... [facility] 03-17-2025 Telephone encounter Note Name of caller: Sabrina Reyes Contact phone number: [phone] Relationship to Patient: patient Provider: Dr Giron Practice: [facility] location Chief Complaint/Reason for Call: 03/17/25 Pt calling to ask for a call back to schedule for an COLONOSCOPY at [facility] pt is needing an order Pls call pt with details wlm message sent to office Best time of day caller can be reached: AM Patient advised that office/PCP has 24-48 business hours to return their call: Yes [facility] 03-17-2025 Miscellaneous Notes Name of caller: Sabrina Reyes Contact phone number: [phone] Relationship to Patient: patient Provider: Dr Giron [facility] location Chief Complaint/Reason for Call: 03/17/25 Pt calling to ask for a call back to schedule for an COLONOSCOPY at [facility] pt is needing an order Pls call pt with details wlm message sent to office Best time of day caller can be reached: AM Patient advised that office/PCP has 24-48 business hours to return their call: Yes documented in this encounter [facility] 08-11-2024 Telephone encounter Note PCP updated. [facility] 08-11-2024 Miscellaneous Notes PCP updated. Name of caller: Sabrina Contact phone number: [phone] Relationship to Patient: patient Provider: Dr. Craft Practice: [facility] Chief Complaint/Reason for Call: Patient called in to advise he found a new doctor and he will not be returning to this practice. Best time of day caller can be reached: N/A Patient advised that office/PCP has 24-48 business hours to return their call: Yes documented in this encounter [facility] 08-11-2024 Telephone encounter Note Name of caller: Sabrina Contact phone number: [phone] Relationship to Patient: patient Provider: Dr. Craft Practice: [facility] Chief Complaint/Reason for Call: Patient called in to advise he found a new doctor and he will not be returning to this practice. Best time of day caller can be reached: N/A Patient advised that office/PCP has 24-48 business hours to return their call: Yes [facility] 08-04-2024 Telephone encounter Note Placed call to patient to discuss provider direction to schedule an appointment. Message left on voicemail to return call. [facility] 08-04-2024 Miscellaneous Notes Placed call to patient to discuss provider direction to schedule an appointment. Message left on voicemail to return call. Recent Visits Date Type Provider Dept 01/14/24 Office Visit Orion Craft DO [facility] 08/23/23 Office Visit [facility] Showing recent visits within past 365 days and meeting all other requirements Future Appointments No visits were found meeting these conditions. Showing future appointments within next 90 days and meeting all other requirements Requested Prescriptions Pending Prescriptions Disp Refills lisinopril 20 MG tablet [Pharmacy Med Name: LISINOPRIL 20 MG TABLET] 90 tablet 1 Sig: TAKE 1 TABLET BY MOUTH EVERY DAY Provider: Orion Craft DO Verified pharmacy: yes Verified day(s) supplied: yes Verified refill(s) needed (previous prescription showing no refills in chart): Yes Have you received any controlled medications from any other provider? No Overdue for visit: Yes If yes - patient scheduled? No Most recent labs completed in chart? Yes Hypertension: Lab Results Component Value Date NA 135 12/29/2023 K 4.4 12/29/2023 EGFR 71 01/14/2024 BUN 13 01/14/2024 CREATININE 1.12 01/14/2024 documented in this encounter [facility] 08-04-2024 Telephone encounter Note Recent Visits Date Type Provider Dept 01/14/24 Office Visit Orion Craft DO [facility] 08/23/23 Office Visit Orion Craft DO [facility] Showing recent visits within past 365 days and meeting all other requirements Future Appointments No visits were found meeting these conditions. Showing future appointments within next 90 days and meeting all other requirements Requested Prescriptions Pending Prescriptions Disp Refills lisinopril 20 MG tablet [Pharmacy Med Name: LISINOPRIL 20 MG TABLET] 90 tablet 1 Sig: TAKE 1 TABLET BY MOUTH EVERY DAY Provider: Orion Craft DO Verified pharmacy: yes Verified day(s) supplied: yes Verified refill(s) needed (previous prescription showing no refills in chart): Yes Have you received any controlled medications from any other provider? No Overdue for visit: Yes If yes - patient scheduled? No Most recent labs completed in chart? Yes Hypertension: Lab Results Component Value Date NA 135 12/29/2023 K 4.4 12/29/2023 EGFR 71 01/14/2024 BUN 13 01/14/2024 CREATININE 1.12 01/14/2024 [facility] 06-05-2024 Telephone encounter Note Recent Visits Date Type Provider Dept 01/14/24 Office Visit Orion Craft DO [facility] 08/23/23 Office Visit Orion Craft DO [facility] Showing recent visits within past 365 days and meeting all other requirements Future Appointments No visits were found meeting these conditions. Showing future appointments within next 90 days and meeting all other requirements Requested Prescriptions Pending Prescriptions Disp Refills metFORMIN (Glucophage) 500 MG tablet [Pharmacy Med Name: metFORMIN HCl 500 MG Oral Tablet] 270 tablet 2 Sig: TAKE 2 TABLETS BY MOUTH EVERY MORNING AND 1 TABLET BY MOUTH IN THE EVENING WITH SUPPER Provider: Orion Craft DO Verified pharmacy: yes Verified day(s) supplied: yes Verified refill(s) needed (previous prescription showing no refills in chart): Yes Have you received any controlled medications from any other provider? N/A Overdue for visit: No If yes - patient scheduled? No Most recent labs completed in chart? Yes Diabetes: Lab Results Component Value Date HGBA1C 6.5 (H) 12/27/2023 MICROALBCREA < 30 mg 02/16/2022 BUNCREATININ SEE NOTE: 01/14/2024 K 4.4 12/29/2023 NA 135 12/29/2023 LDL 132 (A) 02/09/2022 HDL 39 (L) 02/21/2024 CHOLESTEROLT 185 08/23/2023 TRIG 156 (H) 02/21/2024 [facility] 06-05-2024 Miscellaneous Notes Recent Visits Date Type Provider Dept 01/14/24 Office Visit Orion Ivan Luana DO [facility] 08/23/23 Office Visit Orion Love DO Luana [facility] Showing recent visits within past 365 days and meeting all other requirements Future Appointments No visits were found meeting these conditions. Showing future appointments within next 90 days and meeting all other requirements Requested Prescriptions Pending Prescriptions Disp Refills metFORMIN (Glucophage) 500 MG tablet [Pharmacy Med Name: metFORMIN HCl 500 MG Oral Tablet] 270 tablet 2 Sig: TAKE 2 TABLETS BY MOUTH EVERY MORNING AND 1 TABLET BY MOUTH IN THE EVENING WITH SUPPER Provider: Orion Craft DO Verified pharmacy: yes Verified day(s) supplied: yes Verified refill(s) needed (previous prescription showing no refills in chart): Yes Have you received any controlled medications from any other provider? N/A Overdue for visit: No If yes - patient scheduled? No Most recent labs completed in chart? Yes Diabetes: Lab Results Component Value Date HGBA1C 6.5 (H) 12/27/2023 MICROALBCREA < 30 mg 02/16/2022 BUNCREATININ SEE NOTE: 01/14/2024 K 4.4 12/29/2023 NA 135 12/29/2023 LDL 132 (A) 02/09/2022 HDL 39 (L) 02/21/2024 CHOLESTEROLT 185 08/23/2023 TRIG 156 (H) 02/21/2024 documented in this encounter [facility] 05-01-2024 Telephone encounter Note Recent Visits Date Type Provider Dept 01/14/24 Office Visit Orion Craft DO [facility] 08/23/23 Office Visit Orion Craft DO [facility] Showing recent visits within past 365 days and meeting all other requirements Future Appointments No visits were found meeting these conditions. Showing future appointments within next 90 days and meeting all other requirements Requested Prescriptions Pending Prescriptions Disp Refills rosuvastatin (Crestor) 40 MG tablet [Pharmacy Med Name: ROSUVASTATIN CALCIUM 40 MG TAB] 90 tablet 1 Sig: TAKE 1 TABLET BY MOUTH EVERY DAY Provider: Cher Luna MD Verified pharmacy: yes Verified day(s) supplied: yes Verified refill(s) needed (previous prescription showing no refills in chart): Yes Have you received any controlled medications from any other provider? N/A Overdue for visit: Yes If yes - patient scheduled? No Most recent labs completed in chart? Yes None [facility] 05-01-2024 Miscellaneous Notes Recent Visits Date Type Provider Dept 01/14/24 Office Visit Orion Craft DO [facility] 08/23/23 Office Visit Orion Craft DO [facility] Showing recent visits within past 365 days and meeting all other requirements Future Appointments No visits were found meeting these conditions. Showing future appointments within next 90 days and meeting all other requirements Requested Prescriptions Pending Prescriptions Disp Refills rosuvastatin (Crestor) 40 MG tablet [Pharmacy Med Name: ROSUVASTATIN CALCIUM 40 MG TAB] 90 tablet 1 Sig: TAKE 1 TABLET BY MOUTH EVERY DAY Provider: Cher Luna MD Verified pharmacy: yes Verified day(s) supplied: yes Verified refill(s) needed (previous prescription showing no refills in chart): Yes Have you received any controlled medications from any other provider? N/A Overdue for visit: Yes If yes - patient scheduled? No Most recent labs completed in chart? Yes None documented in this encounter [facility] 03-30-2024 Telephone encounter Note Recent Visits Date Type Provider Dept 01/14/24 Office Visit Orion Craft DO [facility] 08/23/23 Office Visit Orion Craft DO [facility] Showing recent visits within past 365 days and meeting all other requirements Future Appointments No visits were found meeting these conditions. Showing future appointments within next 90 days and meeting all other requirements Requested Prescriptions Pending Prescriptions Disp Refills metFORMIN (Glucophage) 500 MG tablet [Pharmacy Med Name: metFORMIN HCl 500 MG Oral Tablet] 300 tablet 2 Sig: TAKE 2 TABLETS BY MOUTH EVERY MORNING AND 1 TABLET BY MOUTH IN THE EVENING WITH SUPPER Provider: Orion Craft DO Verified pharmacy: yes Verified day(s) supplied: yes Verified refill(s) needed (previous prescription showing no refills in chart): Yes Have you received any controlled medications from any other provider? N/A Overdue for visit: Yes If yes - patient scheduled? No Most recent labs completed in chart? Yes Diabetes: Lab Results Component Value Date HGBA1C 6.5 (H) 12/27/2023 MICROALBCREA < 30 mg 02/16/2022 BUNCREATININ SEE NOTE: 01/14/2024 K 4.4 12/29/2023 NA 135 12/29/2023 LDL 132 (A) 02/09/2022 HDL 39 (L) 02/21/2024 CHOLESTEROLT 185 08/23/2023 TRIG 156 (H) 02/21/2024 [facility] 03-30-2024 Miscellaneous Notes Recent Visits Date Type Provider Dept 01/14/24 Office Visit Orion Craft DO [facility] 08/23/23 Office Visit Orion Craft DO [facility] Showing recent visits within past 365 days and meeting all other requirements Future Appointments No visits were found meeting these conditions. Showing future appointments within next 90 days and meeting all other requirements Requested Prescriptions Pending Prescriptions Disp Refills metFORMIN (Glucophage) 500 MG tablet [Pharmacy Med Name: metFORMIN HCl 500 MG Oral Tablet] 300 tablet 2 Sig: TAKE 2 TABLETS BY MOUTH EVERY MORNING AND 1 TABLET BY MOUTH IN THE EVENING WITH SUPPER Provider: Orion Craft DO Verified pharmacy: yes Verified day(s) supplied: yes Verified refill(s) needed (previous prescription showing no refills in chart): Yes Have you received any controlled medications from any other provider? N/A Overdue for visit: Yes If yes - patient scheduled? No Most recent labs completed in chart? Yes Diabetes: Lab Results Component Value Date HGBA1C 6.5 (H) 12/27/2023 MICROALBCREA < 30 mg 02/16/2022 BUNCREATININ SEE NOTE: 01/14/2024 K 4.4 12/29/2023 NA 135 12/29/2023 LDL 132 (A) 02/09/2022 HDL 39 (L) 02/21/2024 CHOLESTEROLT 185 08/23/2023 TRIG 156 (H) 02/21/2024 documented in this encounter [facility] 03-26-2024 Telephone encounter Note NINFA: 02/06/24, last EK01/14/24, HR: 61, med pended for review [facility] 03-26-2024 Miscellaneous Notes NINFA: 02/06/24, last EK01/14/24, HR: 61, med pended for review Received fax from [facility] to refill metoprolol documented in this encounter [facility] 03-26-2024 Telephone encounter Note Received fax from [facility] to refill metoprolol [facility] 02-21-2024 Telephone encounter Note Rx loaded [facility] 02-21-2024 Miscellaneous Notes Rx loaded documented in this encounter [facility] 02-06-2024 History of Present illness Narrative Images from the original note were not included. [facility] Cardiology Office Note DATE of SERVICE: 02/06/24 TIME of SERVICE: 3:06 PM Reason for Visit: Chief Complaint Patient presents with Follow-up History ofPresent Illness: Sabrina Reyes is a 68 y.o. male who is known to Dr. Adamson. He has a history of coronary artery disease, STEMI 12/27/2023 with SYED placement to the 99% stenosis in the proximal to mid right coronary artery. It was noted he had a 40% stenosis in the mid LAD, as well as a presumed complete total occlusion in the diagonal 1 vessel which is medically treated. TTE 12/28/2023 notes a preserved ED- 63%, no significant valvular disease present. He presents in office today noting that his blood pressures have been more elevated, he has had systolic readings as high as 180s and 190s over diastolic 80s, 90s, heart rate averaging in the 70s. He brought his home blood pressure cuffs which I was able to verify for accuracy. Today I elected to increase Toprol-XL from 25 mg to 50 mg daily. He has been unable to attend cardiac rehab due to transportation, but he remains active, walking daily at home. Upon reviewing his diet I believe he has been eating more salt than he realizes. We discussed decreasing his intake of fried and processed food, and doing more home cooking, and trying to eat more fresh fruits and vegetables. Will continue monitoring his blood pressure, if in 1 week he is continuing to have readings greater than 140/90 on a consistent basis, he is to notify our office. He is also due for repeat evaluation of his lipids and liver function, which he states he can also do next week. Past Medical History: Past Medical History: Diagnosis Date Ascending aorta dilatation (HCC) 12/2023 3.8 cm per ECHO CAD (coronary artery disease) 12/2023 s/p STEMI- RCA stent- nml LVEF Essential hypertension [address] head 09/16 Fracture of scaphoid bone of hand 2011 left - cast only Generalized anxiety disorder 2016 History of colonic polyps 05/2014 [facility]- defers rech History of DVT (deep vein thrombosis) 1991 RUE - ? TOS sydrome Hypercholesterolemia 2015 Prostate cancer screening 08/2023 PSA only, defers LORRAINE STEMI (ST elevation myocardial infarction) (HCC) 12/2023 s/p RCA stent Type 2 diabetes mellitus, without long-term current use of insulin ([facility]) 06/2021 Past Surgical History Past Surgical History: Procedure Laterality Date CARDIAC CATHETERIZATION N/A 12/27/2023 [place]- RCA stent CARDIAC CATHETERIZATION N/A 12/27/2023 CARDIAC CATHETERIZATION N/A 12/27/2023 COLONOSCOPY 05/2014 per [facility] - small polyp due 2019 HERNIA REPAIR Right 2016 Mayors MENISCECTOMY Left 2011 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 Family History Family History Problem Relation Name Age of Onset COPD Mother Tamiko age 72, smoker COPD Father Adelfo age 77, smoker Other ([id number]) Brother drowned age 9 Other (Other) Maternal Grandmother in 90s Social History Social History Tobacco Use Smoking status: Never Smokeless tobacco: Never Substance Use Topics Alcohol use: Yes Comment: 1 beer a month Drug use: No Allergies: Allergies Allergen Reactions Codeine Hives Medications: Current Outpatient Medications: aspirin 81 MG chewable tablet, Chew 81 mg in the morning., Disp: , Rfl: glimepiride (Amaryl) 1 MG tablet, One q AM, Disp: 90 tablet, Rfl: 1 Lancets (OneTouch Delica Plus [id number]) [facility] [place] USE twice a day, Disp: , Rfl: lisinopril 20 MG tablet, Take 1 tablet (20 mg) by mouth daily., Disp: 90 tablet, Rfl: 1 metFORMIN (Glucophage) 500 MG tablet, TAKE 2 TABLETS BY MOUTH EVERY MORNING AND 1 TABLET BY MOUTH IN THE EVENING WITH SUPPER, Disp: 270 tablet, Rfl: 1 OneTouch Verio test strip, USE 1 STRIP TWO TIMES DAILY (BEFORE MEALS) AND IF NEEDED FOR SYMPTOMS OF IRREGULAR BLOOD GLUCOSE, Disp: 300 each, Rfl: 3 PARoxetine (Paxil) 20 MG tablet, Take 1 tablet (20 mg) by mouth daily., Disp: 30 tablet, Rfl: 11 rosuvastatin (Crestor) 40 MG tablet, Take 1 tablet (40 mg) by mouth daily., Disp: 90 tablet, Rfl: 0 ticagrelor (Brilinta) 90 MG tablet, Take 1 tablet (90 mg) by mouth 2 times daily. MAIL to patient, Disp: 180 tablet, Rfl: 1 metoprolol succinate XL (Toprol-XL) 50 MG 24 hr tablet, Take 1 tablet (50 mg) by mouth daily. Do not crush or chew., Disp: 90 tablet, Rfl: 3 Review of Systems: Review of Systems Constitutional: Negative for activity change, chills, diaphoresis, fatigue and fever. Pt states feeling well, has been noticing his BP is high HENT: Negative for nosebleeds and trouble swallowing. Eyes: Negative for discharge and visual disturbance. Respiratory: Negative for apnea, cough, chest tightness, shortness of breath and wheezing. Denies SOB Cardiovascular: Negative for chest pain, palpitations and leg swelling. Denies chest pain or palpitations Gastrointestinal: Negative for abdominal distention, abdominal pain, blood in stool, diarrhea, nausea and vomiting. Endocrine: Negative for cold intolerance and heat intolerance. Genitourinary: Negative for hematuria. Musculoskeletal: Negative for gait problem and myalgias. Skin: Negative for color change and rash. Neurological: Negative for dizziness, seizures, syncope, facial asymmetry, speech difficulty, weakness, light-headedness, numbness and headaches. Denies dizziness or light headedness Hematological: Does not bruise/bleed easily. Psychiatric/Behavioral: Negative for dysphoric mood. Physical Examination: Vitals: BP 130/80 (BP Location: Left arm, Patient Position: Sitting, BP Cuff Size: Large adult) Pulse 69 Resp 16 Ht 5' 10 (1.778 m) Wt 206 lb (93.4 kg) SpO2 98% BMI 29.56 kg/m Body mass index is 29.56 kg/m . Physical Exam Constitutional: Appearance: Normal appearance. Comments: Well compensated HENT: Head: Normocephalic. Eyes: General: Right eye: No discharge. Left eye: No discharge. Neck: Comments: No JVD Cardiovascular: Rate and Rhythm: Normal rate and regular rhythm. Heart sounds: No murmur heard. Comments: Regular, rate controlled Pulmonary: Effort: Pulmonary effort is normal. Breath sounds: Normal breath sounds. No wheezing or rales. Comments: Clear t/o Abdominal: General: Bowel sounds are normal. There is no distension. Palpations: Abdomen is soft. Musculoskeletal: Cervical back: Neck supple. Right lower leg: No edema. Left lower leg: No edema. Comments: BLE are non edematous Skin: General: Skin is warm. Findings: No erythema or rash. Neurological: Mental Status: He is alert and oriented to person, place, and time. Psychiatric: Behavior: Behavior normal. Laboratory Tests: Lab Results Component Value Date GLUCOSE 95 01/14/2024 CALCIUM 9.3 01/14/2024 NA 135 12/29/2023 K 4.4 12/29/2023 CO2 21 01/14/2024 CL 106 12/29/2023 BUN 13 01/14/2024 CREATININE 1.12 01/14/2024 @LASTP@ Lab Results Component Value Date CHOL 189 12/27/2023 CHOL 246 (H) 02/15/2023 CHOL 222 (A) 02/09/2022 Lab Results Component Value Date TRIG 316 (H) 12/27/2023 TRIG 423 (H) 02/15/2023 TRIG 227 (A) 02/09/2022 Lab Results Component Value Date HDL 37 (L) 12/27/2023 HDL 37 (L) 02/15/2023 HDL 45 02/09/2022 Lab Results Component Value Date LDLCALC 89 12/27/2023 LDLCALC 02/15/2023 Comment: Calculated LDL invalid, triglycerides >400 mg/dl No results found for: VLDL Lab Results Component Value Date CHOLHDLRATIO 5 12/27/2023 CHOLHDLRATIO 7 02/15/2023 CHOLHDLRATIO 5 02/09/2022 Other Testing: Cardiac Tests: Echo (date: 12/28/2023): Left Ventricle: Left ventricle size is normal. Normal wall thickness. Normal left ventricular systolic function. EF by 2D Simpsons Biplane is 63%. Global longitudinal strain is reduced with a value of -16.8%. See diagram for wall motion findings. Septal motion is consistent with bundle branch block. Right Ventricle: Right ventricle size is normal. Normal systolic function. Aorta: Mildly dilated sinuses of Valsalva. Mildly dilated ascending aorta. Ao ascending diameter is 3.8 cm. Pericardium: No pericardial effusion. No significant valvular abnormalities. Cardiac Catheterization (date: 12/31/2023): Intervention: Coronary Revascularization: Prox-Mid RCA Successful DRUG ELUTING STENT (4.0x28 mm) placed to the 99% lesion of the proximal-mid RCA with minimal residual stenosis. Stent expanded well with SREEDHAR III flow Recommendations: Aspirin 81mg daily, lifelong. Dual antiplatelet therapy for minimum 12 months Admit to CCU Blood pressure control, continue nitroglycerin drip for now, had SBP 180s/100 in the lab with some residual chest pain likely due to significantly elevated blood pressure Echocardiogram Continued aggressive risk factor modification and medical therapy Assessment and Plan: 1. Coronary artery disease-status post inferior ST elevation SD with drug-eluting stent placement to the 99% stenosis of the proximal to mid right coronary artery December 2023 -He is recommended for lifelong low-dose aspirin, he also continues on Brilinta 90 mg twice daily which is to remain uninterrupted for a minimum of 1 year -Although he has been unable to attend cardiac rehab, he remains very active in his home environment. I recommended he continue to remain active over the winter months. 2. Hypertension-blood pressure has been elevated, Toprol-XL increased to 50 mg daily today. Lisinopril 20 mg daily continues. Her goal blood pressure will be less than 140/90, optimally less than 130/80. He will notify the office next week if he continues to have elevated blood pressure readings. 3. Dyslipidemia-rosuvastatin 40 mg daily continues for cardiac risk reduction. He is due for a repeat lipid hepatic panel, which he states he can do next week. 4. Bravar-yb-ez is scheduled for regular scheduled appointment with Dr. Adamson in April, of course our office is always available if any new questions or concerns arise, or if his blood pressure remains elevated. Lupe Forde APRN/LEACH CELL OPERATOR documented in this encounter [facility] 02-05-2024 Telephone encounter Note Filled yesterday [facility] 02-05-2024 Miscellaneous Notes Filled yesterday Medication name: ticagrelor (Brilinta) 90 MG tablet Medication dosage: 90 mg (Miligrams Monthly quantity needed: 180 How many day supply requestin days Medication route: oral (PO) Medication administration time(s): 2 times a day (BID) If taking medication PRN, reason for taking medication: N/A If this is a controlled substance do you receive this or any other controlled medication from any other doctor or facility: N/A Ordering provider: Orion Craft DO Date of last office visit: 01/14/24 Date of next office visit: 05/15/24 Date of last refill: (see medication tab): 02/04/24 Updated/Validated preferred pharmacy: Yes Patient instructed to contact the pharmacy prior to picking up the medication: Yes documented in this encounter [facility] 02-05-2024 Telephone encounter Note Medication name: ticagrelor (Brilinta) 90 MG tablet Medication dosage: 90 mg (Miligrams Monthly quantity needed: 180 How many day supply requestin days Medication route: oral (PO) Medication administration time(s): 2 times a day (BID) If taking medication PRN, reason for taking medication: N/A If this is a controlled substance do you receive this or any other controlled medication from any other doctor or facility: N/A Ordering provider: Orion Craft DO Date of last office visit: 01/14/24 Date of next office visit: 05/15/24 Date of last refill: (see medication tab): 02/04/24 Updated/Validated preferred pharmacy: Yes Patient instructed to contact the pharmacy prior to picking up the medication: Yes [facility] 02-04-2024 Telephone encounter Note Being addressed in another encounter [facility] 02-04-2024 Miscellaneous Notes Being addressed in another encounter Rx loaded patient wants to know if you will take over these 2 medications they were given to patient when in the hospital,. Name of caller: Sabrina Contact phone number: [phone] Relationship to Patient: patient Provider: Dr Craft Practice: [facility] Chief Complaint/Reason for Call: Patient called and stated that he only got half of his refills. He is missing the Brintellix and lisinopril. Please advise. Best time of day caller can be reached: Patient advised that office/PCP has 24-48 business hours to return their call: Previously prescribe while was in Hospital Ordering provider: Luana Date of last office visit: 01.14.24 Date of next office visit: 05.15.24 Updated/Validated preferred pharmacy: Yes Patient instructed to contact the pharmacy prior to picking up the medication: Yes (1) Medication name: ticagrelor (Brilinta) 90 MG tablet Medication dosage: 90 mg (Miligrams Monthly quantity needed: 90 How many day supply requestin days Medication route: oral (PO) Medication administration time(s): 2 times a day (BID) If taking medication PRN, reason for taking medication: N/A If this is a controlled substance do you receive this or any other controlled medication from any other doctor or facility: N/A Date of last refill (see medication tab): 12.30.23 (2) Medication name: metoprolol succinate XL (Toprol-XL) 25 MG 24 hr tablet Medication dosage: 25 mg (Miligrams Monthly quantity needed: 90 How many day supply requestin days Medication route: oral (PO) Medication administration time(s): daily If taking medication PRN, reason for taking medication: N/A If this is a controlled substance do you receive this or any other controlled medication from any other doctor or facility: N/A Date of last refill (see medication tab): 12.29.23 (3) Medication name: lisinopril tablet 20 mg Medication dosage: 20 mg (Miligrams Monthly quantity needed: 90 How many day supply requestin days Medication route: oral (PO) Medication administration time(s): daily If taking medication PRN, reason for taking medication: N/A If this is a controlled substance do you receive this or any other controlled medication from any other doctor or facility: N/A Date of last refill (see medication tab): 08.01.23 (4) Medication name: rosuvastatin (Crestor) 40 MG tablet Medication dosage: 40 mg (Miligrams Monthly quantity needed: 90 How many day supply requestin days Medication route: oral (PO) Medication administration time(s): daily If taking medication PRN, reason for taking medication: N/A If this is a controlled substance do you receive this or any other controlled medication from any other doctor or facility: N/A Date of last refill (see medication tab): 12.29.23 documented in this encounter [facility] 02-04-2024 Telephone encounter Note Rx loaded patient wants to know if you will take over these 2 medications they were given to patient when in the hospital,. [facility] 02-04-2024 Telephone encounter Note Name of caller: Sabrina Contact phone number: [phone] Relationship to Patient: patient Provider: Dr Craft Practice: [facility] Chief Complaint/Reason for Call: Patient called and stated that he only got half of his refills. He is missing the Brintellix and lisinopril. Please advise. Best time of day caller can be reached: Patient advised that office/PCP has 24-48 business hours to return their call: [facility] 01-31-2024 Telephone encounter Note Previously prescribe while was in Hospital Ordering provider: Luana Date of last office visit: 01.14.24 Date of next office visit: 05.15.24 Updated/Validated preferred pharmacy: Yes Patient instructed to contact the pharmacy prior to picking up the medication: Yes (1) Medication name: ticagrelor (Brilinta) 90 MG tablet Medication dosage: 90 mg (Miligrams Monthly quantity needed: 90 How many day supply requestin days Medication route: oral (PO) Medication administration time(s): 2 times a day (BID) If taking medication PRN, reason for taking medication: N/A If this is a controlled substance do you receive this or any other controlled medication from any other doctor or facility: N/A Date of last refill (see medication tab): 12.30.23 (2) Medication name: metoprolol succinate XL (Toprol-XL) 25 MG 24 hr tablet Medication dosage: 25 mg (Miligrams Monthly quantity needed: 90 How many day supply requestin days Medication route: oral (PO) Medication administration time(s): daily If taking medication PRN, reason for taking medication: N/A If this is a controlled substance do you receive this or any other controlled medication from any other doctor or facility: N/A Date of last refill (see medication tab): 12.29.23 (3) Medication name: lisinopril tablet 20 mg Medication dosage: 20 mg (Miligrams Monthly quantity needed: 90 How many day supply requestin days Medication route: oral (PO) Medication administration time(s): daily If taking medication PRN, reason for taking medication: N/A If this is a controlled substance do you receive this or any other controlled medication from any other doctor or facility: N/A Date of last refill (see medication tab): 08.01.23 (4) Medication name: rosuvastatin (Crestor) 40 MG tablet Medication dosage: 40 mg (Miligrams Monthly quantity needed: 90 How many day supply requestin days Medication route: oral (PO) Medication administration time(s): daily If taking medication PRN, reason for taking medication: N/A If this is a controlled substance do you receive this or any other controlled medication from any other doctor or facility: N/A Date of last refill (see medication tab): 12.29.23 [facility] 01-14-2024 History of Present illness Narrative Images from the original note were not included. [facility] [address] [facility] [address] [facility] [id number] Visit type: Established Patient Reason for Visit: Other (SHARAD- heart attack [facility] ) Assessment / Plan: Sabrina was seen today for other. Diagnoses and all orders for this visit: Type 2 diabetes mellitus with hyperglycemia, without long-term current use of insulin (HCC) (Primary) Comments: Very stable, continue metformin and glimepiride at 1 mg every morning only, check daily FBS and call if hypoglycemic Essential hypertension Comments: Improved blood pressure readings at home, continue metoprolol, lisinopril Hypercholesterolemia with hypertriglyceridemia Comments: Improving, continue Crestor and low-fat meals Coronary artery disease involving [place] coronary artery of [place] heart without angina pectoris Comments: Stable, continue Brilinta, metoprolol, and aspirin Orders: - ECG 12 lead; Future - ECG [address] elevation myocardial infarction (STEMI) Other orders - glimepiride (Amaryl) 1 MG tablet; One q AM Of note I reached out to cardiology and nurse practitioner will review EKGs and call the patient with review of his symptoms. Continue casual exercise at home. Of note he deferred cardiac rehab. Recheck in the office in 3 months. Certainly to ER with any change in severity of chest pain shortness of breath or diaphoresis. Subjective: Patient ID: Sabrina Reyes is a 68 y.o. male. HPI non-smoker with stable diabetes, hyperlipidemia and hypertension presents to the office after being treated for an acute STEMI and underwent stenting to the right coronary artery. LV function normal after event. He is now on Crestor metoprolol and Brilinta and aspirin. Presented with posterior shoulder pain shortness of breath and diaphoresis. Some radiation to the left upper shoulder. Since his hospitalization he has been feeling well. Able to do some light yard work without difficulty. Has twinges of sharp fleeting pricks in the front part of his chest but not occurring with exertion. Review of Systems no recent night sweats fevers or chills. No cough or congestion. No jaw pain or arm pain. No PND orthopnea claudication or edema. Glucose levels occasionally down to 80 on glimepiride 2 mg daily. No abdominal pain. No emesis. Bowels are regular. No melena or blood. No dysuria. Allergies Allergen Reactions Nabeel Alcantar Current Outpatient Medications on File Prior to Visit Medication Sig Dispense Refill aspirin 81 MG chewable tablet Chew 81 mg in the morning. lisinopril 20 MG tablet Take 20 mg by mouth daily. metFORMIN (Glucophage) 500 MG tablet TAKE 2 TABLETS BY MOUTH EVERY MORNING AND 1 TABLET BY MOUTH IN THE EVENING WITH SUPPER 270 tablet 1 metoprolol succinate XL (Toprol-XL) 25 MG 24 hr tablet Take 1 tablet (25 mg) by mouth daily. Do not crush or chew. 30 tablet 11 PARoxetine (Paxil) 20 MG tablet Take 1 tablet (20 mg) by mouth daily. 30 tablet 11 rosuvastatin (Crestor) 40 MG tablet Take 1 tablet (40 mg) by mouth daily. 30 tablet 11 ticagrelor (Brilinta) 90 MG tablet Take 1 tablet (90 mg) by mouth 2 times daily. MAIL to patient 60 tablet 11 [DISCONTINUED] glimepiride (Amaryl) 1 MG tablet TAKE 1 TABLET BY MOUTH EVERY MORNING BEFORE BREAKFAST OR FIRST MAIN MEAL OF THE DAY (Patient taking differently: take 1 tablet by mouth every morning before BREAKFAST OR FIRST MAIN MEAL OF THE DAY. 01/01/2024, patient states he takes 2 tablets every morning.) 90 tablet 1 Lancets (OneTouch Delica Plus [id number]) misc USE twice a day OneTouch Verio test strip USE 1 STRIP TWO TIMES DAILY (BEFORE MEALS) AND IF NEEDED FOR SYMPTOMS OF IRREGULAR BLOOD GLUCOSE 300 each 3 [DISCONTINUED] metFORMIN (Glucophage) 500 MG tablet Increase to 2 tabs every morning and one each PM with supper 270 tablet 1 No current facility-administered medications on file prior to visit. Patient Active Problem List Diagnosis History of colonic polyps Hypercholesterolemia with hypertriglyceridemia Essential hypertension Type 2 diabetes mellitus, without long-term current use of insulin (HCC) HARIKA (generalized anxiety disorder) STEMI (ST elevation myocardial infarction) ([facility]) CAD (coronary artery disease) Social History Tobacco Use Smoking status: Never Smokeless tobacco: Never Substance Use Topics Alcohol use: Yes Comment: 1 beer a month Past Surgical History: Procedure Laterality Date CARDIAC CATHETERIZATION N/A 12/27/2023 [place]ender- RCA stent CARDIAC CATHETERIZATION N/A 12/27/2023 CARDIAC CATHETERIZATION N/A 12/27/2023 COLONOSCOPY 05/2014 per [facility] - small polyp due 2019 HERNIA REPAIR Right 2016 [facility]ors MENISCECTOMY Left 2011 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 Alert in no acute distress. Nonicteric. Normal oropharynx. No neck masses JVD or adenopathy. No carotid bruits. Heart is regular without gallops murmurs or ectopy. Lungs are clear without rales wheezes or egophony. Abdomen obese without pain hepatosplenomegaly masses or bruits. No ascites. Extremities are pink without pallor cyanosis clubbing or edema. Reviewed recent heart cath, echocardiogram, chest x-ray and lab in length with patient. EKG sinus rhythm with nonspecific T wave changes that are improved from hospital record. documented in this encounter [facility] 01-13-2024 Telephone encounter Note Recent Visits Date Type Provider Dept [facility] Visit DO Cherie Henderson [facility] Showing recent visits within past 365 days and meeting all other requirements Future Appointments Date Type Provider Dept 01/14/24 Appointment DO Cherie Henderson [facility]y 02/28/24 Appointment Orion Craft DO [facility] Becky Showing future appointments within next 90 days and meeting all other requirements Requested Prescriptions Pending Prescriptions Disp Refills metFORMIN (Glucophage) 500 MG tablet [Pharmacy Med Name: metFORMIN HCl 500 MG Oral Tablet] 240 tablet 3 Sig: TAKE 2 TABLETS BY MOUTH EVERY MORNING AND 1 TABLET BY MOUTH IN THE EVENING WITH SUPPER Provider: Orion Craft DO Overdue for visit: No If yes - patient scheduled? Yes Most recent labs completed in chart? Yes Verified pharmacy: yes Verified day(s) supplied: yes Verified refill(s) needed (previous prescription showing no refills in chart): Yes Have you received any controlled medications from any other provider? N/A Diabetes: Lab Results Component Value Date HGBA1C 6.5 (H) 12/27/2023 MICROALBCREA < 30 mg 02/16/2022 BUNCREATININ SEE NOTE: 08/23/2023 K 4.4 12/29/2023 NA 135 12/29/2023 LDL 132 (A) 02/09/2022 HDL 37 (L) 12/27/2023 CHOLESTEROLT 185 08/23/2023 TRIG 316 (H) 12/27/2023 [facility] 01-13-2024 Miscellaneous Notes Recent Visits Date Type Provider Dept 08/23/23 Office Visit Orion Craft DO [facility] 02/15/23 Office Visit Orion Craft DO [facility] Showing recent visits within past 365 days and meeting all other requirements Future Appointments Date Type Provider Dept 01/14/24 Appointment Orion Craft DO [facility] 02/28/24 Appointment Orion Craft DO [facility] Showing future appointments within next 90 days and meeting all other requirements Requested Prescriptions Pending Prescriptions Disp Refills metFORMIN (Glucophage) 500 MG tablet [Pharmacy Med Name: metFORMIN HCl 500 MG Oral Tablet] 240 tablet 3 Sig: TAKE 2 TABLETS BY MOUTH EVERY MORNING AND 1 TABLET BY MOUTH IN THE EVENING WITH SUPPER Provider: Orion Craft DO Overdue for visit: No If yes - patient scheduled? Yes Most recent labs completed in chart? Yes Verified pharmacy: yes Verified day(s) supplied: yes Verified refill(s) needed (previous prescription showing no refills in chart): Yes Have you received any controlled medications from any other provider? N/A Diabetes: Lab Results Component Value Date HGBA1C 6.5 (H) 12/27/2023 MICROALBCREA < 30 mg 02/16/2022 BUNCREATININ SEE NOTE: 08/23/2023 K 4.4 12/29/2023 NA 135 12/29/2023 LDL 132 (A) 02/09/2022 HDL 37 (L) 12/27/2023 CHOLESTEROLT 185 08/23/2023 TRIG 316 (H) 12/27/2023 documented in this encounter [facility] 01-02-2024 History of Present illness Narrative Images from the original note were not included. [facility] Cardiology Office Note DATE of SERVICE: 01/02/24 TIME of SERVICE: 8:35 AM Reason for Visit: Chief Complaint Patient presents with Hospital Follow-up History ofPresent Illness: Sabrina Reyes is a 68 y.o. male who presents in office today after his recent admission to [facility] 12/27/2023-12/29/2023. He had presented to the hospital via EMS due to acute severe chest discomfort with radiation to his left arm, jaw, with associated diaphoresis. He was found to have subtle ST elevations inferiorly, taken emergently to the Cardiac Tech 12/27/2023, where he underwent drug-eluting stent placement to the 99% stenosis in the proximal to mid right coronary artery. It was noted he had a 40% stenosis in the mid LAD, as well as a presumed complete total occlusion in the diagonal 1 vessel which is medically treated. He tells me he feels excellent since his discharge, he has had no recurrent chest discomfort. He did have mild hypotension while admitted, he was initiated on guideline directed therapy including Toprol XL 25 mg daily, lisinopril 10 mg daily. He was started on rosuvastatin 40 mg daily to optimize his cardiac risk, recommended for dual antiplatelet therapy, lifelong low-dose aspirin, Brilinta 90 mg twice daily for minimum of 1 year. Inpatient transthoracic echo 12/28/2023 notes a preserved EF measured 63% with no significant valvular disease present. Today I have referred him to cardiac rehab, I have increased lisinopril to 20 mg daily. I encouraged he continue to monitor his blood pressure in his home environment, goal blood pressure is less than 130/80. I will recheck a BMP in 1 week, repeat lipid and hepatic panel in 6 weeks. I continue to encourage a heart healthy diet and daily walking program. Past Medical History: Past Medical History: Diagnosis Date Essential hypertension [address] head 09/16 Fracture of scaphoid bone of hand 2010 left - cast only Generalized anxiety disorder 2016 History of colonic polyps 05/2014 Turowski- defers rech History of DVT (deep vein thrombosis) 1991 RUE - ? TOS sydrome Hypercholesterolemia 2015 Prostate cancer screening 08/2023 PSA only, defers LORRAINE Type 2 diabetes mellitus, without long-term current use of insulin (HCC) 06/2021 Past Surgical History Past Surgical History: Procedure Laterality Date CARDIAC CATHETERIZATION N/A 12/27/2023 Performed by Henrique Pavon MD at [facility] Cardiac Cath/EP Lab CARDIAC CATHETERIZATION N/A 12/27/2023 Performed by Henrique Pavon MD at [facility] Cardiac Cath/EP Lab CARDIAC CATHETERIZATION N/A 12/27/2023 Performed by Henrique Pavon MD at [facility] Cardiac Cath/EP Lab COLONOSCOPY 05/2014 per [facility] - small polyp due 2019 HERNIA REPAIR Right 2016 [facility]ors MENISCECTOMY Left 2011 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 Family History Family History Problem Relation Name Age of Onset COPD Mother Tamiko age 72, smoker COPD Father Adelfo age 77, smoker Other ([id number]) Brother drowned age 9 Other (Other) Maternal Grandmother in 90s Social History Social History Tobacco Use Smoking status: Never Smokeless tobacco: Never Substance Use Topics Alcohol use: Yes Comment: 1 beer a month Drug use: No Allergies: Allergies Allergen Reactions Codeine Hives Medications: Current Outpatient Medications: aspirin 81 MG chewable tablet, Chew 81 mg in the morning., Disp: , Rfl: glimepiride (Amaryl) 1 MG tablet, TAKE 1 TABLET BY MOUTH EVERY MORNING BEFORE BREAKFAST OR FIRST MAIN MEAL OF THE DAY (Patient taking differently: take 1 tablet by mouth every morning before BREAKFAST OR FIRST MAIN MEAL OF THE DAY. 01/01/2024, patient states he takes 2 tablets every morning.), Disp: 90 tablet, Rfl: 1 Lancets (OneTouch Delica Plus [id number]) [facility] twice a day, Disp: , Rfl: lisinopril 20 MG tablet, Take 20 mg by mouth daily., Disp: , Rfl: metFORMIN (Glucophage) 500 MG tablet, Increase to 2 tabs every morning and one each PM with supper, Disp: 270 tablet, Rfl: 1 metoprolol succinate XL (Toprol-XL) 25 MG 24 hr tablet, Take 1 tablet (25 mg) by mouth daily. Do not crush or chew., Disp: 30 tablet, Rfl: 11 OneTouch Verio test strip, USE 1 STRIP TWO TIMES DAILY (BEFORE MEALS) AND IF NEEDED FOR SYMPTOMS OF IRREGULAR BLOOD GLUCOSE, Disp: 300 each, Rfl: 3 PARoxetine (Paxil) 20 MG tablet, Take 1 tablet (20 mg) by mouth daily., Disp: 30 tablet, Rfl: 11 rosuvastatin (Crestor) 40 MG tablet, Take 1 tablet (40 mg) by mouth daily., Disp: 30 tablet, Rfl: 11 ticagrelor (Brilinta) 90 MG tablet, Take 1 tablet (90 mg) by mouth 2 times daily. MAIL to patient, Disp: 60 tablet, Rfl: 11 Review of Systems: Review of Systems Constitutional: Negative for activity change, chills, diaphoresis, fatigue and fever. Pt states feeling well, denies any recurrent chest discomfort HENT: Negative for nosebleeds and trouble swallowing. Eyes: Negative for discharge and visual disturbance. Respiratory: Negative for apnea, cough, chest tightness, shortness of breath and wheezing. Denies SOB Cardiovascular: Negative for chest pain, palpitations and leg swelling. Denies chest pain or palpitations Gastrointestinal: Negative for abdominal distention, abdominal pain, blood in stool, diarrhea, nausea and vomiting. Endocrine: Negative for cold intolerance and heat intolerance. Genitourinary: Negative for hematuria. Musculoskeletal: Negative for gait problem and myalgias. Skin: Negative for color change and rash. Neurological: Negative for dizziness, seizures, syncope, facial asymmetry, speech difficulty, weakness, light-headedness, numbness and headaches. Denies dizziness or light headedness Hematological: Does not bruise/bleed easily. Psychiatric/Behavioral: Negative for dysphoric mood. Physical Examination: Vitals: BP (!) 146/88 (BP Location: Right arm, Patient Position: Sitting, BP Cuff Size: Adult) Pulse 70 Resp 16 Ht 5' 10 (1.778 m) Wt 205 lb 6.4 oz (93.2 kg) SpO2 97% BMI 29.47 kg/m Body mass index is 29.47 kg/m . Physical Exam Constitutional: Appearance: Normal appearance. Comments: Well compensated HENT: Head: Normocephalic. Eyes: General: Right eye: No discharge. Left eye: No discharge. Neck: Comments: No JVD Cardiovascular: Rate and Rhythm: Normal rate and regular rhythm. Heart sounds: No murmur heard. Comments: Regular, no murmer's present on exam Pulmonary: Effort: Pulmonary effort is normal. Breath sounds: Normal breath sounds. No wheezing or rales. Comments: Clear t/o Abdominal: General: Bowel sounds are normal. There is no distension. Palpations: Abdomen is soft. Musculoskeletal: Cervical back: Neck supple. Right lower leg: No edema. Left lower leg: No edema. Comments: BLE are nonedematous Skin: General: Skin is warm. Findings: No erythema or rash. Neurological: Mental Status: He is alert and oriented to person, place, and time. Psychiatric: Behavior: Behavior normal. Laboratory Tests: Lab Results Component Value Date GLUCOSE 120 (H) 12/29/2023 CALCIUM 9.0 12/29/2023 NA 135 12/29/2023 K 4.4 12/29/2023 CO2 20 (L) 12/29/2023 CL 106 12/29/2023 BUN 15 12/29/2023 CREATININE 1.08 12/29/2023 @[facility]@ Lab Results Component Value Date CHOL 189 12/27/2023 CHOL 246 (H) 02/15/2023 CHOL 222 (A) 02/09/2022 Lab Results Component Value Date TRIG 316 (H) 12/27/2023 TRIG 423 (H) 02/15/2023 TRIG 227 (A) 02/09/2022 Lab Results Component Value Date HDL 37 (L) 12/27/2023 HDL 37 (L) 02/15/2023 HDL 45 02/09/2022 Lab Results Component Value Date LDLCALC 89 12/27/2023 LDLCALC 02/15/2023 Comment: Calculated LDL invalid, triglycerides >400 mg/dl No results found for: VLDL Lab Results Component Value Date CHOLHDLRATIO 5 12/27/2023 CHOLHDLRATIO 7 02/15/2023 CHOLHDLRATIO 5 02/09/2022 Other Testing: Cardiac Tests: Echo (date: 12/28/2023): Left Ventricle: Left ventricle size is normal. Normal wall thickness. Normal left ventricular systolic function. EF by 2D Simpsons Biplane is 63%. Global longitudinal strain is reduced with a value of -16.8%. See diagram for wall motion findings. Septal motion is consistent with bundle branch block. Right Ventricle: Right ventricle size is normal. Normal systolic function. Aorta: Mildly dilated sinuses of Valsalva. Mildly dilated ascending aorta. Ao ascending diameter is 3.8 cm. Pericardium: No pericardial effusion. No significant valvular abnormalities. Cardiac Catheterization (date: 12/31/2023): Intervention: Coronary Revascularization: Prox-Mid RCA Successful DRUG ELUTING STENT (4.0x28 mm) placed to the 99% lesion of the proximal-mid RCA with minimal residual stenosis. Stent expanded well with SREEDHAR III flow Recommendations: Aspirin 81mg daily, lifelong. Dual antiplatelet therapy for minimum 12 months Admit to CCU Blood pressure control, continue nitroglycerin drip for now, had SBP 180s/100 in the lab with some residual chest pain likely due to significantly elevated blood pressure Echocardiogram Continued aggressive risk factor modification and medical therapy Assessment and Plan: 1. Coronary artery disease-status post inferior ST elevation SD with drug-eluting stent placement to the 99% stenosis of the proximal to mid right coronary artery. -He is recommended for lifelong low-dose aspirin, he is to continue Brilinta 90 mg twice daily for minimum of 1 year. -He has had no recurrent chest discomfort since his discharge -I have referred him to cardiac rehab. 2. Hypertension-lisinopril increased to 20 mg daily today, Toprol XL 25 mg daily continues. Goal BP less than 130/80. 3. Dyslipidemia- Crestor 40 mg daily continues, will recheck lipid hepatic panel in 6 weeks. 4. Disp- follow up 3 months and as needed. Lupe Forde APRN/LEACH CELL OPERATOR documented in this encounter [facility] 01-02-2024 History of Present illness Narrative Images from the original note were not included. [facility] Cardiology Office Note DATE of SERVICE: 01/02/24 TIME of SERVICE: 8:35 AM Reason for Visit: Chief Complaint Patient presents with Hospital Follow-up History ofPresent Illness: Sabrina Reyes is a 68 y.o. male who presents in office today after his recent admission to [facility] 12/27/2023-12/29/2023. He had presented to the hospital via EMS due to acute severe chest discomfort with radiation to his left arm, jaw, with associated diaphoresis. He was found to have subtle ST elevations inferiorly, taken emergently to the Cardiac Tech 12/27/2023, where he underwent drug-eluting stent placement to the 99% stenosis in the proximal to mid right coronary artery. It was noted he had a 40% stenosis in the mid LAD, as well as a presumed complete total occlusion in the diagonal 1 vessel which is medically treated. He tells me he feels excellent since his discharge, he has had no recurrent chest discomfort. He did have mild hypotension while admitted, he was initiated on guideline directed therapy including Toprol XL 25 mg daily, lisinopril 10 mg daily. He was started on rosuvastatin 40 mg daily to optimize his cardiac risk, recommended for dual antiplatelet therapy, lifelong low-dose aspirin, Brilinta 90 mg twice daily for minimum of 1 year. Inpatient transthoracic echo 12/28/2023 notes a preserved EF measured 63% with no significant valvular disease present. Today I have referred him to cardiac rehab, I have increased lisinopril to 20 mg daily. I encouraged he continue to monitor his blood pressure in his home environment, goal blood pressure is less than 130/80. I will recheck a BMP in 1 week, repeat lipid and hepatic panel in 6 weeks. I continue to encourage a heart healthy diet and daily walking program. Past Medical History: Past Medical History: Diagnosis Date Essential hypertension [address] head 09/16 Fracture of scaphoid bone of hand 2010 left - cast only Generalized anxiety disorder 2016 History of colonic polyps 05/2014 [facility]- defers rech History of DVT (deep vein thrombosis) 1991 RUE - ? TOS sydrome Hypercholesterolemia 2015 Prostate cancer screening 08/2023 PSA only, defers LORRAINE Type 2 diabetes mellitus, without long-term current use of insulin (HCC) 06/2021 Past Surgical History Past Surgical History: Procedure Laterality Date CARDIAC CATHETERIZATION N/A 12/27/2023 Performed by Henrique Pavon MD at [facility] Cardiac Cath/EP Lab CARDIAC CATHETERIZATION N/A 12/27/2023 Performed by Henrique Pavon MD at [facility] Cardiac Cath/EP Lab CARDIAC CATHETERIZATION N/A 12/27/2023 Performed by Henrique Pavon MD at [facility] Cardiac Cath/EP Lab COLONOSCOPY 05/2014 per [facility] - small polyp due 2019 HERNIA REPAIR Right 2016 Mayors MENISCECTOMY Left 2011 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 Family History Family History Problem Relation Name Age of Onset COPD Mother Tamiko age 72, smoker COPD Father Adelfo age 77, smoker Other ([id number]) Brother drowned age 9 Other (Other) Maternal Grandmother in 90s Social History Social History Tobacco Use Smoking status: Never Smokeless tobacco: Never Substance Use Topics Alcohol use: Yes Comment: 1 beer a month Drug use: No Allergies: Allergies Allergen Reactions Codeine Hives Medications: Current Outpatient Medications: aspirin 81 MG chewable tablet, Chew 81 mg in the morning., Disp: , Rfl: glimepiride (Amaryl) 1 MG tablet, TAKE 1 TABLET BY MOUTH EVERY MORNING BEFORE BREAKFAST OR FIRST MAIN MEAL OF THE DAY (Patient taking differently: take 1 tablet by mouth every morning before BREAKFAST OR FIRST MAIN MEAL OF THE DAY. 01/01/2024, patient states he takes 2 tablets every morning.), Disp: 90 tablet, Rfl: 1 Lancets (Carmolex,Touch Delica Plus [id number][place] [facility] twice a day, Disp: , Rfl: lisinopril 20 MG tablet, Take 20 mg by mouth daily., Disp: , Rfl: metFORMIN (Glucophage) 500 MG tablet, Increase to 2 tabs every morning and one each PM with supper, Disp: 270 tablet, Rfl: 1 metoprolol succinate XL (Toprol-XL) 25 MG 24 hr tablet, Take 1 tablet (25 mg) by mouth daily. Do not crush or chew., Disp: 30 tablet, Rfl: 11 OneTouch Verio test strip, USE 1 STRIP TWO TIMES DAILY (BEFORE MEALS) AND IF NEEDED FOR SYMPTOMS OF IRREGULAR BLOOD GLUCOSE, Disp: 300 each, Rfl: 3 PARoxetine (Paxil) 20 MG tablet, Take 1 tablet (20 mg) by mouth daily., Disp: 30 tablet, Rfl: 11 rosuvastatin (Crestor) 40 MG tablet, Take 1 tablet (40 mg) by mouth daily., Disp: 30 tablet, Rfl: 11 ticagrelor (Brilinta) 90 MG tablet, Take 1 tablet (90 mg) by mouth 2 times daily. MAIL to patient, Disp: 60 tablet, Rfl: 11 Review of Systems: Review of Systems Constitutional: Negative for activity change, chills, diaphoresis, fatigue and fever. Pt states feeling well, denies any recurrent chest discomfort HENT: Negative for nosebleeds and trouble swallowing. Eyes: Negative for discharge and visual disturbance. Respiratory: Negative for apnea, cough, chest tightness, shortness of breath and wheezing. Denies SOB Cardiovascular: Negative for chest pain, palpitations and leg swelling. Denies chest pain or palpitations Gastrointestinal: Negative for abdominal distention, abdominal pain, blood in stool, diarrhea, nausea and vomiting. Endocrine: Negative for cold intolerance and heat intolerance. Genitourinary: Negative for hematuria. Musculoskeletal: Negative for gait problem and myalgias. Skin: Negative for color change and rash. Neurological: Negative for dizziness, seizures, syncope, facial asymmetry, speech difficulty, weakness, light-headedness, numbness and headaches. Denies dizziness or light headedness Hematological: Does not bruise/bleed easily. Psychiatric/Behavioral: Negative for dysphoric mood. Physical Examination: Vitals: BP (!) 146/88 (BP Location: Right arm, Patient Position: Sitting, BP Cuff Size: Adult) Pulse 70 Resp 16 Ht 5' 10 (1.778 m) Wt 205 lb 6.4 oz (93.2 kg) SpO2 97% BMI 29.47 kg/m Body mass index is 29.47 kg/m . Physical Exam Constitutional: Appearance: Normal appearance. Comments: Well compensated HENT: Head: Normocephalic. Eyes: General: Right eye: No discharge. Left eye: No discharge. Neck: Comments: No JVD Cardiovascular: Rate and Rhythm: Normal rate and regular rhythm. Heart sounds: No murmur heard. Comments: Regular, no murmer's present on exam Pulmonary: Effort: Pulmonary effort is normal. Breath sounds: Normal breath sounds. No wheezing or rales. Comments: Clear t/o Abdominal: General: Bowel sounds are normal. There is no distension. Palpations: Abdomen is soft. Musculoskeletal: Cervical back: Neck supple. Right lower leg: No edema. Left lower leg: No edema. Comments: BLE are nonedematous Skin: General: Skin is warm. Findings: No erythema or rash. Neurological: Mental Status: He is alert and oriented to person, place, and time. Psychiatric: Behavior: Behavior normal. Laboratory Tests: Lab Results Component Value Date GLUCOSE 120 (H) 12/29/2023 CALCIUM 9.0 12/29/2023 NA 135 12/29/2023 K 4.4 12/29/2023 CO2 20 (L) 12/29/2023 CL 106 12/29/2023 BUN 15 12/29/2023 CREATININE 1.08 12/29/2023 [facility] Lab Results Component Value Date CHOL 189 12/27/2023 CHOL 246 (H) 02/15/2023 CHOL 222 (A) 02/09/2022 Lab Results Component Value Date TRIG 316 (H) 12/27/2023 TRIG 423 (H) 02/15/2023 TRIG 227 (A) 02/09/2022 Lab Results Component Value Date HDL 37 (L) 12/27/2023 HDL 37 (L) 02/15/2023 HDL 45 02/09/2022 Lab Results Component Value Date LDLCALC 89 12/27/2023 LDLCALC 02/15/2023 Comment: Calculated LDL invalid, triglycerides >400 mg/dl No results found for: VLDL Lab Results Component Value Date CHOLHDLRATIO 5 12/27/2023 CHOLHDLRATIO 7 02/15/2023 CHOLHDLRATIO 5 02/09/2022 Other Testing: Cardiac Tests: Echo (date: 12/28/2023): Left Ventricle: Left ventricle size is normal. Normal wall thickness. Normal left ventricular systolic function. EF by 2D Simpsons Biplane is 63%. Global longitudinal strain is reduced with a value of -16.8%. See diagram for wall motion findings. Septal motion is consistent with bundle branch block. Right Ventricle: Right ventricle size is normal. Normal systolic function. Aorta: Mildly dilated sinuses of Valsalva. Mildly dilated ascending aorta. Ao ascending diameter is 3.8 cm. Pericardium: No pericardial effusion. No significant valvular abnormalities. Cardiac Catheterization (date: 12/31/2023): Intervention: Coronary Revascularization: Prox-Mid RCA Successful DRUG ELUTING STENT (4.0x28 mm) placed to the 99% lesion of the proximal-mid RCA with minimal residual stenosis. Stent expanded well with SREEDHAR III flow Recommendations: Aspirin 81mg daily, lifelong. Dual antiplatelet therapy for minimum 12 months Admit to CCU Blood pressure control, continue nitroglycerin drip for now, had SBP 180s/100 in the lab with some residual chest pain likely due to significantly elevated blood pressure Echocardiogram Continued aggressive risk factor modification and medical therapy Assessment and Plan: 1. Coronary artery disease-status post inferior ST elevation SD with drug-eluting stent placement to the 99% stenosis of the proximal to mid right coronary artery. -He is recommended for lifelong low-dose aspirin, he is to continue Brilinta 90 mg twice daily for minimum of 1 year. -He has had no recurrent chest discomfort since his discharge -I have referred him to cardiac rehab. 2. Hypertension-lisinopril increased to 20 mg daily today, Toprol XL 25 mg daily continues. Goal BP less than 130/80. 3. Dyslipidemia- Crestor 40 mg daily continues, will recheck lipid hepatic panel in 6 weeks. 4. Disp- follow up 3 months and as needed. Lupe Forde APRN/RENE documented in this encounter [facility] 01-02-2024 Miscellaneous Notes Good afternoon. I wanted to let you know your labs are stable, normal electrolytes and kidney function. Please continue your present medications including lisinopril 20 mg daily. Please call the office if any further questions. Thank you. Addended by: SHY ARRIAZA on: 02/21/2024 09:03 AM Modules accepted: Orders documented in this encounter [facility] 01-02-2024 Note Addended by: SHY ARRIAZA on: 02/21/2024 09:03 AM Modules accepted: Orders [facility] 01-02-2024 Progress note Formatting of t his note might be different from the original. Good afternoon. I wanted to let you know your labs are stable, normal electrolytes and kidney function. Please continue your present medications including lisinopril 20 mg daily. Please call the office if any further questions. Thank you. [facility] 12-30-2023 Telephone encounter Note PC to patient, spoke with spouse. She notes patient is doing wel, he is pretty tired and this morning had some dizziness that has since improved. His BP today was 111/78, 106/67, 118/76, HR was not known. Advised to continue current doses of medications and monitor for any further dizziness. He should stay well hydrated. He got the 4 day supply of Brilinta, but she picked up his other medications today and 30 day supply was not in there. Advised I will send to [employer] to mail the first 30 day supply then refills can be sent to long-term pharmacy at follow-up. Appt made 01/02/24 at 8am with TREVIN [facility] at [place] as they preferred closer to home. All questions answered, they will call sooner if needed. [facility] 12-30-2023 Miscellaneous Notes PC to patient, spoke with spouse. She notes patient is doing wel, he is pretty tired and this morning had some dizziness that has since improved. His BP today was 111/78, 106/67, 118/76, HR was not known. Advised to continue current doses of medications and monitor for any further dizziness. He should stay well hydrated. He got the 4 day supply of Brilinta, but she picked up his other medications today and 30 day supply was not in there. Advised I will send to [employer] to mail the first 30 day supply then refills can be sent to long-term pharmacy at follow-up. Appt made 01/02/24 at 8am with TREVIN Plaza at [place] as they preferred closer to home. All questions answered, they will call sooner if needed. documented in this encounter [facility] 12-29-2023 Hospital course Narrative Images from the original note were not included. [facility] [place] [facility] Cardiology Discharge Summary Name: Sabrina Reyes Date of : 1955 Date of Admission: 12/27/2023 Date of Discharge: 12/29/2023 Discharge Attending: Pedro Pugh DO Primary Care Provider: Orion Craft DO Type of Admission: Admission Code Status: Full Code Reason for Admission: Chest pain Discharge Diagnoses: STEMI/CAD w/ 99% occlusion in the Mid RCA (culprit lesion) s/p PCI Essential HTN Hospital Course Sabrina Reyes is a 68 y.o. male with PMH HARIKA essential hypertension, DM2 c/w diabetic neuropathy, Hyper-cholesterolemia/triglyceride adelfo that presented to [facility] on 12/27/2023 from home due to complaints of chest pain. En route to the ED, the patient received aspirin and 2 nitroglycerine via EMS. In the ED (12/27/2023), the patient endorsed chest pain that radiated to his back. Purportedly, the pain registed 20/10 along with mild SOB. Shortly after he became diaphoretic, cold and clammy. Per hospital STEMI activation was started at roughly b/t [id number]. Interventional cardiology came to bedside. Patient was immediately taken to the paint laboratory technician. ED triage (12/27/2023) vitals HR 80, RR 20, BP 125/94, Labs Troponin .406, Pro BNP 869, Triglycerides 316, SED 11, Hba1c 6.5, WBC 10.9. EKG: L-[place] deviation, borderline ST depression (inferior leads), and borderline ST elevation (anterior leads). (12/28/2023) shortly after PCI s/p SYED to the RCA x1, the patient was seen at bedside, resting comfortably and responding appropriately; he was accompanied by his . The patient was weaned off nitroglycerin for pain control. In addition, he does not have a history of drinking, smoking or IV drug use. Since procedure he has had no complaints. Stable for discharge home. Consider titration of lisinopril back up to 40 mg, will be sent home on 10 mg. New medications include metoprolol succinate 25 mg and Brilinta 90 mg. Rosuvastatin 40 mg will also be started. Consultants: IP CONSULT TO CARDIAC REHAB IP CONSULT TO CARDIAC REHAB Procedures: LHC + PCI X 1 SYED (12/27/2023) Last diet during hospitalization: Adult diet Regular; Low Fat/Low Chol/High Fiber/FREDA Recommended at discharge: Normal Activity No heavy lifting. Disposition: Home Condition at Discharge: fair Followup Testing/ Instructions: Follow up with cardiology Programs/services: None Facility/Home Care Agency: NONE Future Appointments Date Time Provider Department Center 02/28/2024 9:30 AM Orion Craft DO [facility] Discharge Plan Medication List CONTINUE taking these medications OneTouch Delica Plus [id number] [facility] [place] your doctor about these medications aspirin 81 MG chewable tablet glimepiride 1 MG tablet Commonly known as: Amaryl TAKE 1 TABLET BY MOUTH EVERY MORNING BEFORE BREAKFAST OR FIRST MAIN MEAL OF THE DAY hydroCHLOROthiazide 25 MG tablet Commonly known as: HYDRODiuril Decrease to one half tab q day lisinopril 40 MG tablet take 1 tablet by mouth once daily metFORMIN 500 MG tablet Commonly known as: Glucophage Increase to 2 tabs every morning and one each PM with supper OneTouch Verio test strip Generic drug: glucose blood USE 1 STRIP TWO TIMES DAILY (BEFORE MEALS) AND IF NEEDED FOR SYMPTOMS OF IRREGULAR BLOOD GLUCOSE PARoxetine 10 MG tablet Commonly known as: Paxil Take 1 tablet (10 mg) by mouth every morning. simvastatin 80 MG tablet Commonly known as: Zocor Take 1 tablet (80 mg) by mouth Nightly for 90 doses. Objective: Review of Systems: Review of Systems Review of Systems Constitutional: Negative for activity change. HENT: Negative for sinus pain. Eyes: Negative for photophobia and visual disturbance. Respiratory: Negative for cough, choking, chest tightness, shortness of breath and stridor. Cardiovascular: Negative for chest pain, palpitations and leg swelling. Gastrointestinal: Negative for diarrhea and nausea. Musculoskeletal: Negative for neck pain. Neurological: Negative for syncope and weakness. Psychiatric/Behavioral: Negative for agitation, behavioral problems and confusion. Physical Exam: Vitals: BP 119/84 Pulse 66 Temp 36.7 C (98 F) (Temporal) Resp 20 Ht 5' 10 (1.778 m) Wt 205 lb 11.2 oz (93.3 kg) SpO2 95% BMI 29.51 kg/m No intake or output data in the 24 hours ending 12/29/23 1048 Admission weight: 210 lb (95.3 kg) Last weight: Wt Readings from Last 1 Encounters: 12/29/23 205 lb 11.2 oz (93.3 kg) Body mass index is 29.51 kg/m . BMI Classification: Overweight (BMI 25.0-29.9) Physical Exam Constitutional: Appearance: He is not toxic-appearing or diaphoretic. HENT: Head: Normocephalic and atraumatic. Right Ear: External ear normal. Left Ear: External ear normal. Eyes: Extraocular Movements: Extraocular movements intact. Pupils: Pupils are equal, round, and reactive to light. Cardiovascular: Pulses: Normal pulses. Heart sounds: Normal heart sounds. Pulmonary: Effort: Pulmonary effort is normal. Breath sounds: Normal breath sounds. Abdominal: General: Abdomen is flat. Palpations: Abdomen is soft. Musculoskeletal: General: No swelling or tenderness. Cervical back: Normal range of motion. Right lower leg: No edema. Left lower leg: No edema. Skin: General: Skin is warm and dry. Neurological: General: No focal deficit present. Mental Status: He is oriented to person, place, and time. Mental status is at baseline. Psychiatric: Mood and Affect: Mood normal. Behavior: Behavior normal. Laboratory Tests: NT-ProBNP level; last two recorded values, may include those outside this admission. Lab Results Component Value Date BNP 869 (H) 12/27/2023 Lab Results Component Value Date WBC 12.9 (H) 12/29/2023 HGB 13.2 12/29/2023 HCT 41.1 12/29/2023 MCV 86.9 12/29/2023 PLT 169 12/29/2023 Lab Results Component Value Date GLUCOSE 120 (H) 12/29/2023 CALCIUM 9.0 12/29/2023 NA 135 12/29/2023 K 4.4 12/29/2023 CO2 20 (L) 12/29/2023 CL 106 12/29/2023 BUN 15 12/29/2023 CREATININE 1.08 12/29/2023 Lab Results Component Value Date ALT 16 08/23/2023 AST 16 08/23/2023 ALKPHOS 58 08/23/2023 BILITOT 0.3 08/23/2023 National Registry/ Accreditation Requirements/ Other DC information. @[email or web address]@ Total time Discharge activity. [x]30 min or less []Greater than 30 min Pedro Pugh DO Parts of this note may be generated using a voice recognition software program. Please excuse any quill fixer errors that may have occurred. This note was electronically signed by Pedro Pugh DO on 12/29/23 Associated attestation - Henrique Pavon MD - 12/29/2023 7:01 PM EDT I, Dr. Pavon, saw and evaluated the patient. I personally obtained the angeles and critical portions of the history and physical exam. I reviewed the chart and discussed the patient with the resident. I agree with the resident's medical decision making. Assessment/Plan: Patient admitted with acute coronary syndrome, not totally clear culprit vessel. EKG suggests lateral SD, but only a small diagonal subbranch found to be chronically occluded. RCA with a 99% lesion, stented, with resolution of symptoms. Did well overnight. No return of symptoms. TTE showed EF 63%. Will discharge today with DAPT and other cardiac meds. Close follow up scheduled. documented in this encounter [facility] 12-29-2023 History of Present illness Narrative Images from the original note were not included. [facility] [facility] CCU PROGRESS NOTE Patient Name: Sabrina Reyes : 1955 Subjective: Sabrina Reyes is a 68 y.o. male with PMH HARIKA essential hypertension, DM2 c/w diabetic neuropathy, Hyper-cholesterolemia/triglyceride adelfo that presented to [facility] on 12/27/2023 from home due to complaints of chest pain. En route to the ED, the patient received aspirin and 2 nitroglycerine via EMS. In the ED (12/27/2023), the patient endorsed chest pain that radiated to his back. Purportedly, the pain registed 20/10 along with mild SOB. Shortly after he became diaphoretic, cold and clammy. Per hospital STEMI activation was started at roughly b/t [id number]. Interventional cardiology came to bedside. Patient was immediately taken to the paint laboratory technician. ED triage (12/27/2023) vitals HR 80, RR 20, BP 125/94, Labs Troponin .406, Pro BNP 869, Triglycerides 316, SED 11, Hba1c 6.5, WBC 10.9. EKG: L-[place] deviation, borderline ST depression (inferior leads), and borderline ST elevation (anterior leads). (12/28/2023) shortly after PCI s/p SYED to the RCA x1, the patient was seen at bedside, resting comfortably and responding appropriately; he was accompanied by his . The patient is currently on nitroglycerin for pain control, with plans to warn as tolerated. Patient has never experienced this type of pain before. In addition, he does not have a history of drinking, smoking or IV drug use. Since procedure he has had no complaints. Stable for discharge home. Interval History: Overnight- No acute events Vitals- All other vitals are stable Labs- All stable Imaging Echo- Left Ventricle: Left ventricle size is normal. Normal wall thickness. Normal left ventricular systolic function. EF by 2D Simpsons Biplane is 63%. Global longitudinal strain is reduced with a value of -16.8%. See diagram for wall motion findings. Septal motion is consistent with bundle branch block. Right Ventricle: Right ventricle size is normal. Normal systolic function. Aorta: Mildly dilated sinuses of Valsalva. Mildly dilated ascending aorta. Ao ascending diameter is 3.8 cm. Pericardium: No pericardial effusion. No significant valvular abnormalities. ECG- Most recent post surgical ECG Sinus rhythm Probable anterolateral infarct, age indeterm ROS and PE- Patient says he feels better than baseline. Ready to be discharged Review of Systems: Review of Systems Constitutional: Negative for activity change. HENT: Negative for sinus pain. Eyes: Negative for photophobia and visual disturbance. Respiratory: Negative for cough, choking, chest tightness, shortness of breath and stridor. Cardiovascular: Negative for chest pain, palpitations and leg swelling. Gastrointestinal: Negative for diarrhea and nausea. Musculoskeletal: Negative for neck pain. Neurological: Negative for syncope and weakness. Psychiatric/Behavioral: Negative for agitation, behavioral problems and confusion. Inpatient Medications: Scheduled Meds:aspirin, 81 mg, Oral, Daily calcium carbonate, 500 mg, Oral, Daily enoxaparin, 40 mg, SubCUTAneous, Daily insulin lispro, 0-12 Units, SubCUTAneous, TID WC [Held by provider] lisinopril, 40 mg, Oral, Daily metoprolol succinate XL, 25 mg, Oral, Daily pantoprazole, 20 mg, Oral, qAM AC PARoxetine, 20 mg, Oral, Daily rosuvastatin, 40 mg, Oral, Daily ticagrelor, 90 mg, Oral, BID Objective: Physical Examination: BP 120/86 Pulse 68 Temp 36.7 C (98 F) (Temporal) Resp 20 Ht 5' 10 (1.778 m) Wt 205 lb 11.2 oz (93.3 kg) SpO2 97% BMI 29.51 kg/m No intake or output data in the 24 hours ending 12/29/23 0735 Physical Exam Constitutional: Appearance: He is not toxic-appearing or diaphoretic. HENT: Head: Normocephalic and atraumatic. Right Ear: External ear normal. Left Ear: External ear normal. Eyes: Extraocular Movements: Extraocular movements intact. Pupils: Pupils are equal, round, and reactive to light. Cardiovascular: Pulses: Normal pulses. Heart sounds: Normal heart sounds. Pulmonary: Effort: Pulmonary effort is normal. Breath sounds: Normal breath sounds. Abdominal: General: Abdomen is flat. Palpations: Abdomen is soft. Musculoskeletal: General: No swelling or tenderness. Cervical back: Normal range of motion. Right lower leg: No edema. Left lower leg: No edema. Skin: General: Skin is warm and dry. Neurological: General: No focal deficit present. Mental Status: He is oriented to person, place, and time. Mental status is at baseline. Psychiatric: Mood and Affect: Mood normal. Behavior: Behavior normal. Pertinent Labs: BMP: Lab Results Component Value Date NA 135 12/29/2023 K 4.4 12/29/2023 CL 106 12/29/2023 CO2 20 (L) 12/29/2023 BUN 15 12/29/2023 CREATININE 1.08 12/29/2023 GLUCOSE 120 (H) 12/29/2023 CALCIUM 9.0 12/29/2023 MG 2.1 12/29/2023 PHOS 3.3 12/29/2023 CBC: Lab Results Component Value Date WBC 12.9 (H) 12/29/2023 HGB 13.2 12/29/2023 HCT 41.1 12/29/2023 MCV 86.9 12/29/2023 PLT 169 12/29/2023 Cardiac profile: TROPONIN I Date Value Ref Range Status 12/28/2023 0.404 (HH) <0.034 ng/mL Final 12/27/2023 0.406 (HH) <0.034 ng/mL Final Coagulation: Lab Results Component Value Date INR 1.0 12/27/2023 Lipid panel: Lab Results Component Value Date CHOL 189 12/27/2023 HDL 37 (L) 12/27/2023 LDL 132 (A) 02/09/2022 TRIG 316 (H) 12/27/2023 Other: Lab Results Component Value Date HGBA1C 6.5 (H) 12/27/2023 TSH 3.840 02/15/2023 Chest Imaging: CXR: Cardiac Studies: ECG: Encounter Date: 12/27/23 ECG 12 lead Result Value Heart Rate 70 QRSD Interval 104 QT Interval 389 QTC Interval 420 P [place] 48 QRS [place] 129 T Wave [place] -11 MA Interval 141 Impression Sinus rhythm Probable anterolateral infarct, age indeterm Echo: 12/27/23 TRANSTHORACIC ECHOCARDIOGRAM (TTE) COMPLETE (CONTRAST/BUBBLE/3D PRN) 12/28/2023 11:06 AM (Final) Interpretation Summary Left Ventricle: Left ventricle size is normal. Normal wall thickness. Normal left ventricular systolic function. EF by 2D Simpsons Biplane is 63%. Global longitudinal strain is reduced with a value of -16.8%. See diagram for wall motion findings. Septal motion is consistent with bundle branch block. Right Ventricle: Right ventricle size is normal. Normal systolic function. Aorta: Mildly dilated sinuses of Valsalva. Mildly dilated ascending aorta. Ao ascending diameter is 3.8 cm. Pericardium: No pericardial effusion. No significant valvular abnormalities. Signed by: Medhat Sanchez DO on 12/28/2023 11:06 AM Cath Report: 12/27/23 CARDIAC PROCEDURE (Preliminary) This result has not been signed. Information might be incomplete. Conclusion Background: This is a very pleasant 68 y.o. male with a PMH of DMII, HTN, HPL who presented from home by EMS with acute severe chest pain with radiation to his L arm/jaw, diaphoresis and ill feeling. ECG by EMS demonstrated subtle ST elevations in aVL and significant ST depressions in the inferior leads. He was given 324 asa by EMS. In the ER he got 4000 U of heparin and 180 of Brilinta. 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 Stent expanded well with SREEDHAR III flow Recommendations: Aspirin 81mg daily, lifelong. Dual antiplatelet therapy for minimum 12 months Admit to CCU Blood pressure control, continue nitroglycerin drip for now, had SBP 180s/100 in the lab with some residual chest pain likely due to significantly elevated blood pressure Echocardiogram Continued aggressive risk factor modification and medical therapy Assessment/Plan #STEMI/CAD w/ 99% occlusion in the Mid RCA (culprit lesion) s/p PCI - EKG consistent with borderline ST depression (inferior leads), and borderline ST elevation (anterior leads) -- Urgent cardiac catheterization with PCI to Mid RCA -- Brilinta/ASA load -- SYED to RCA placed -- Post-cardiac catheterizations orders placed -- EKG in AM including now -- Nitro PRN chest pain (helping patient) -- Start ASA, Statin, BB, Brilinta -- ACEi after BMP returns and if blood pressure allows (AM likely) -- Complete Echo -- Cardiac rehab consult -- Cardiac diet -- Troponin q6 until downtrending -- Lipid Panel 316/Hemoglobin A1c 6.5 -- IVF hydration -- Daily EKG -- Daily CBC/BMP/Mg/Phos -- Starting toprolol 25 mg #DM2 -- Hemoglobin A1c 6.5 -- Hold home metfromin and glimepiride -- Start low dose SS as appropriate #Essential HTN -- Holding home hydrochlorothiazide, 25mg PO, and Lisinopril, 40mg PO, as patient is on Nitroglycerin -- Start lisinopril 40 mg PO in am, pending creatinine labs s/p contrast #HLD -- Continue Rosuvastatin 40 PO daily #HARIKA -- Continue Paroxetine 10mg PO daily - Goals of Care: No Order - DVT Prophylaxis: lovenox daily - GI Prophylaxis: Protonix daily - Diet: Normal - BMI Classification: Body mass index is 29.51 kg/m . - Disposition: Discharge Home Associated attestation - Henrique Pavon MD - 12/29/2023 12:28 PM EDT I, Dr. Pavon, saw and evaluated the patient. I personally obtained the angeles and critical portions of the history and physical exam. I reviewed the chart and discussed the patient with the resident. I agree with the resident's medical decision making. Assessment/Plan: Patient admitted with acute coronary syndrome, not totally clear culprit vessel. EKG suggests lateral SD, but only a small diagonal subbranch found to be chronically occluded. RCA with a 99% lesion, stented, with resolution of symptoms. Did well overnight. No return of symptoms. TTE showed EF 63%. Will discharge today with DAPT and other cardiac meds. Close follow up scheduled. Images from the original note were not included. [facility] [place] [facility] CCU PROGRESS NOTE Patient Name: Sabrina Reyes : 1955 Subjective: Sabrina Reyes is a 68 y.o. male with PMH HARIKA essential hypertension, DM2 c/w diabetic neuropathy, Hyper-cholesterolemia/triglyceride adelfo that presented to [facility] on 12/27/2023 from home due to complaints of chest pain. En route to the ED, the patient received aspirin and 2 nitroglycerine via EMS. In the ED (12/27/2023), the patient endorsed chest pain that radiated to his back. Purportedly, the pain registed 20/10 along with mild SOB. Shortly after he became diaphoretic, cold and clammy. Per hospital STEMI activation was started at roughly b/t [id number]. Interventional cardiology came to bedside. Patient was immediately taken to the paint laboratory technician. ED triage (12/27/2023) vitals HR 80, RR 20, BP 125/94, Labs Troponin .406, Pro BNP 869, Triglycerides 316, SED 11, Hba1c 6.5, WBC 10.9. EKG: L-[place] deviation, borderline ST depression (inferior leads), and borderline ST elevation (anterior leads). Tonight (12/28/2023) , shortly after PCI s/p SYED to the RCA x1, the patient was seen at bedside, resting comfortably and responding appropriately; he was accompanied by his . The patient is currently on nitroglycerin for pain control, with plans to warn as tolerated. Patient has never experienced this type of pain before. In addition, he does not have a history of drinking, smoking or IV drug use. Interval History: Overnight- Feels much better on exam today. Got out of bed and walked around. Vitals- Hypertensive episodes right after Cath, but normal otherwise. All other vitals are stable Labs- Troponin is down trending. All other vitals non significant I/O- 480 ml Imaging Echo- On pre read his EF is normal, with some wall motion abnormalities in the anterior apex ECG- Most recent post surgical ECG Sinus rhythm Abnormal lateral Q waves Anteroseptal infarct, age indeterminate ROS and PE- Patient feels well. Denies chest pain and shortness of breath. Had some neck pain that has resolved. Cardio exam normal. Limbs well perfused without edema. Likely discharge tomorrow Review of Systems: Review of Systems Inpatient Medications: Scheduled Meds:[START ON 12/29/2023] aspirin, 81 mg, Oral, Daily [START ON 12/29/2023] enoxaparin, 40 mg, SubCUTAneous, Daily insulin lispro, 0-12 Units, SubCUTAneous, TID WC [Held by provider] lisinopril, 40 mg, Oral, Daily pantoprazole, 20 mg, Oral, qAM AC PARoxetine, 20 mg, Oral, Daily rosuvastatin, 40 mg, Oral, Daily ticagrelor, 90 mg, Oral, BID Continuous Infusions:nitroglycerin, 5-200 mcg/min, Last Rate: 50 mcg/min (12/28/23 0545) Objective: Physical Examination: BP 108/74 Pulse 87 Temp 36.7 C (98.1 F) (Temporal) Resp 18 Ht 5' 10 (1.778 m) Wt 210 lb (95.3 kg) SpO2 93% BMI 30.13 kg/m Intake/Output Summary (Last 24 hours) at 12/28/2023 0638 Last data filed at 12/28/2023 0500 Gross per 24 hour Intake 287 ml Output 5 ml Net 282 ml Physical Exam Pertinent Labs: BMP: Lab Results Component Value Date NA 137 12/28/2023 K 4.1 12/28/2023 CL 104 12/28/2023 CO2 23 12/28/2023 BUN 17 12/28/2023 CREATININE 1.11 12/28/2023 GLUCOSE 154 (H) 12/28/2023 CALCIUM 8.9 12/28/2023 MG 1.7 12/28/2023 PHOS 3.5 12/28/2023 CBC: Lab Results Component Value Date WBC 16.5 (H) 12/28/2023 HGB 13.3 12/28/2023 HCT 41.8 12/28/2023 MCV 86.7 12/28/2023 PLT 190 12/28/2023 Cardiac profile: TROPONIN I Date Value Ref Range Status 12/28/2023 0.404 (HH) <0.034 ng/mL Final 12/27/2023 0.406 (HH) <0.034 ng/mL Final Coagulation: Lab Results Component Value Date INR 1.0 12/27/2023 Lipid panel: Lab Results Component Value Date CHOL 189 12/27/2023 HDL 37 (L) 12/27/2023 LDL 132 (A) 02/09/2022 TRIG 316 (H) 12/27/2023 Other: Lab Results Component Value Date HGBA1C 6.5 (H) 12/27/2023 TSH 3.840 02/15/2023 Chest Imaging: CXR: Cardiac Studies: ECG: Encounter Date: 12/27/23 ECG 12 lead Result Value Heart Rate 88 QRSD Interval 104 QT Interval 396 QTC Interval 480 P [place] 62 QRS [place] 33 T Wave [place] 68 MA Interval 156 Impression Sinus rhythm Abnormal lateral Q waves Anteroseptal infarct, age indeterminate Echo: No results found for this or any previous visit. Cath Report: 12/27/23 CARDIAC PROCEDURE (Preliminary) This result has not been signed. Information might be incomplete. Conclusion Background: This is a very pleasant 68 y.o. male with a PMH of DMII, HTN, HPL who presented from home by EMS with acute severe chest pain with radiation to his L arm/jaw, diaphoresis and ill feeling. ECG by EMS demonstrated subtle ST elevations in aVL and significant ST depressions in the inferior leads. He was given 324 asa by EMS. In the ER he got 4000 U of heparin and 180 of Brilinta. 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 Stent expanded well with SREEDHAR III flow Recommendations: Aspirin 81mg daily, lifelong. Dual antiplatelet therapy for minimum 12 months Admit to CCU Blood pressure control, continue nitroglycerin drip for now, had SBP 180s/100 in the lab with some residual chest pain likely due to significantly elevated blood pressure Echocardiogram Continued aggressive risk factor modification and medical therapy Assessment/Plan #STEMI/CAD w/ 99% occlusion in the Mid RCA (culprit lesion) s/p PCI - EKG consistent with borderline ST depression (inferior leads), and borderline ST elevation (anterior leads) -- Urgent cardiac catheterization with PCI to Mid RCA -- Brilinta/ASA load -- SYED to RCA placed -- Post-cardiac catheterizations orders placed -- EKG in AM including now -- Nitro PRN chest pain (helping patient) -- Start ASA, Statin, BB, Brilinta -- ACEi after BMP returns and if blood pressure allows (AM likely) -- Complete Echo -- Cardiac rehab consult -- Cardiac diet -- Troponin q6 until downtrending -- Lipid Panel 316/Hemoglobin A1c 6.5 -- IVF hydration -- Daily EKG -- Daily CBC/BMP/Mg/Phos -- Starting toprolol 25 mg #DM2 -- Hemoglobin A1c 6.5 -- Hold home metfromin and glimepiride -- Start low dose SS as appropriate #Essential HTN -- Holding home hydrochlorothiazide, 25mg PO, and Lisinopril, 40mg PO, as patient is on Nitroglycerin -- Start lisinopril 40 mg PO in am, pending creatinine labs s/p contrast #HLD -- Continue Rosuvastatin 40 PO daily #HARIKA -- Continue Paroxetine 10mg PO daily - Goals of Care: No Order - DVT Prophylaxis: lovenox daily - GI Prophylaxis: Protonix daily - Diet: Normal - BMI Classification: Body mass index is 30.13 kg/m . - Disposition: Continue to monitor in CCU. Associated attestation - Henrique Pavon MD - 12/28/2023 11:39 AM EDT I, Dr. Pavon, saw and evaluated the patient. I personally obtained the angeles and critical portions of the history and physical exam. I reviewed the chart and discussed the patient with the resident. I agree with the resident's medical decision making. Assessment/Plan: Patient admitted with acute coronary syndrome, not totally clear culprit vessel. EKG suggests lateral SD, but only a small diagonal subbranch found to be chronically occluded. RCA with a 99% lesion, stented, with resolution of symptoms. Plan for echo today. Continue DAPT and other cardiac medications. Ambulate. May consider discharge tomorrow, if pt feeling well and remains stable. documented in this encounter [facility] 12-28-2023 Plan of care note The patient is Moderately Unstable - Medium risk of patient condition declining or worsening The patient's goals for the shift include to experience no further chest pain The clinical goals for the shift include to remain hemodynamically stable Over the shift, the patient did not make progress toward the following goals. Barriers to progression include . Recommendations to address these barriers include . [facility] 12-28-2023 Miscellaneous Notes The patient is Moderately Unstable - Medium risk of patient condition declining or worsening The patient's goals for the shift include to experience no further chest pain The clinical goals for the shift include to remain hemodynamically stable Over the shift, the patient did not make progress toward the following goals. Barriers to progression include . Recommendations to address these barriers include . Problem: Knowledge Deficit Goal: Patient/family/caregiver demonstrates understanding of disease process, treatment plan, medications, and discharge instructions 12/28/2023 0236 by Britney Langford RN Outcome: Progressing 12/28/2023 0235 by Britney Langford RN Outcome: Progressing Problem: Potential for Compromised Skin Integrity Goal: Skin Integrity is Maintained or Improved 12/28/2023 0236 by Britney Langford RN Outcome: Progressing 12/28/2023 0235 by Britney Langford RN Outcome: Progressing Goal: Nutritional status is improving 12/28/2023 0236 by Britney Langford RN Outcome: Progressing 12/28/2023 0235 by Britney Langford RN Outcome: Progressing Problem: Urinary Incontinence Goal: Perineal skin integrity is maintained or improved 12/28/2023 0236 by Britney Langford RN Outcome: Progressing 12/28/2023 0235 by Britney Langford RN Outcome: Progressing documented in this encounter [facility] 12-28-2023 Plan of care note Problem: Knowledge Deficit Goal: Patient/family/caregiver demonstrates understanding of disease process, treatment plan, medications, and discharge instructions 12/28/2023 0236 by Britney Langford RN Outcome: Progressing 12/28/2023 0235 by Britney Langford RN Outcome: Progressing Problem: Potential for Compromised Skin Integrity Goal: Skin Integrity is Maintained or Improved 12/28/2023 0236 by Britney Langford RN Outcome: Progressing 12/28/2023 0235 by Britney Langford RN Outcome: Progressing Goal: Nutritional status is improving 12/28/2023 0236 by Britney Langford RN Outcome: Progressing 12/28/2023 0235 by Britney Langford RN Outcome: Progressing Problem: Urinary Incontinence Goal: Perineal skin integrity is maintained or improved 12/28/2023 0236 by Britney Langford RN Outcome: Progressing 12/28/2023 0235 by Britney Langford RN Outcome: Progressing [facility] 12-27-2023 History and physical note Images from the original note were not included. [facility] [place] [facility] CCU HISTORY & PHYSICAL Patient Name: Sabrina Reyes : 1955 Date of Admission: 12/27/2023 10:00 PM Established airport clerk: N/A Subjective: Chief Complaint: Chest Pain History of Present Illness: Sabrina Reyes is a 68 y.o. male with PMH HARIKA essential hypertension, DM2 c/w diabetic neuropathy, Hyper-cholesterolemia/triglyceride adelfo that presented to [facility] on 12/27/2023 from home due to complaints of chest pain. En route to the ED, the patient received aspirin and 2 nitroglycerine via EMS. In the ED (12/27/2023), the patient endorsed chest pain that radiated to his back. Purportedly, the pain registed 20/10 along with mild SOB. Shortly after he became diaphoretic, cold and clammy. Per hospital STEMI activation was started at roughly b/t [id number]. Interventional cardiology came to bedside. Patient was immediately taken to the paint laboratory technician. ED triage (12/27/2023) vitals HR 80, RR 20, BP 125/94, Labs Troponin .406, Pro BNP 869, Triglycerides 316, SED 11, Hba1c 6.5, WBC 10.9. EKG: L-[place] deviation, borderline ST depression (inferior leads), and borderline ST elevation (anterior leads). Tonight (12/28/2023) , shortly after PCI s/p SYED to the RCA x1, the patient was seen at bedside, resting comfortably and responding appropriately; he was accompanied by his . The patient is currently on nitroglycerin for pain control, with plans to warn as tolerated. Patient has never experienced this type of pain before. In addition, he does not have a history of drinking, smoking or IV drug use. Regarding Ros, the patient denied constitutional sxs, appetite change, unexpected weight change, chest pain, palpitations, sob, cough, abd pain, distention, nausea, vomiting, diarrhea, constipation, dysuria, increased frequency or urgency, lightheadedness, or confusion. Patient did endorse neck pain. Review of Systems: Review of Systems All other systems reviewed and are negative. Past Medical History: Past Medical History: Diagnosis Date Essential hypertension [address] head 09/16 Fracture of scaphoid bone of hand 2010 left - cast only Generalized anxiety disorder 2016 History of colonic polyps 05/2014 [facility]- defers rech History of DVT (deep vein thrombosis) 1991 RUE - ? 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 Family History: Family History Problem Relation Name Age of Onset COPD Mother Tamiko age 72, smoker COPD Father Adelfo age 77, smoker Other ([id number]) Brother drowned age 9 Other (Other) Maternal Grandmother in 90s Social History: Social History Tobacco Use Smoking status: Never Smokeless tobacco: Never Substance Use Topics Alcohol use: No Alcohol/week: 0.0 standard drinks of alcohol Drug use: No Allergies: Allergies Allergen Reactions Codeine Hives Medications: Current Outpatient Medications Medication Instructions aspirin 81 mg, Oral, Daily glimepiride (Amaryl) 1 MG tablet TAKE 1 TABLET BY MOUTH EVERY MORNING BEFORE BREAKFAST OR FIRST MAIN MEAL OF THE DAY hydroCHLOROthiazide (HYDRODiuril) 25 MG tablet Decrease to one half tab q day Lancets (OneTouch Delica Plus [id number]) misc USE twice a day lisinopril 40 MG tablet take 1 tablet by mouth once daily metFORMIN (Glucophage) 500 MG tablet Increase to 2 tabs every morning and one each PM with supper OneTouch Verio test strip USE 1 STRIP TWO TIMES DAILY (BEFORE MEALS) AND IF NEEDED FOR SYMPTOMS OF IRREGULAR BLOOD GLUCOSE PARoxetine (PAXIL) 10 mg, Oral, Every morning simvastatin (ZOCOR) 80 mg, Oral, Nightly Objective: Physical Examination: BP (!) 128/95 Pulse 80 Resp 20 No intake or output data in the 24 hours ending 12/27/232226 Physical Exam Constitutional: Appearance: Normal appearance. He is obese. HENT: Head: Normocephalic and atraumatic. Nose: Nose normal. Eyes: Pupils: Pupils are equal, round, and reactive to light. Neck: Vascular: No JVD. Cardiovascular: Rate and Rhythm: Normal rate and regular rhythm. Pulses: Normal pulses. Heart sounds: Normal heart sounds. Pulmonary: Effort: Pulmonary effort is normal. Breath sounds: Normal breath sounds. Abdominal: General: Abdomen is flat. Bowel sounds are normal. Palpations: Abdomen is soft. Musculoskeletal: General: Normal range of motion. Cervical back: Normal range of motion. Skin: General: Skin is warm. Capillary Refill: Capillary refill takes less than 2 seconds. Neurological: Mental Status: He is alert and oriented to person, place, and time. Psychiatric: Mood and Affect: Mood normal. Behavior: Behavior normal. Laboratory Tests: BMP: Lab Results Component Value Date NA 137 02/15/2023 K 4.6 02/15/2023 CL 105 02/15/2023 CO2 20 08/23/2023 BUN 16 08/23/2023 CREATININE 1.22 08/23/2023 GLUCOSE 120 (H) 08/23/2023 CALCIUM 9.4 08/23/2023 CBC: Lab Results Component Value Date WBC 7.8 08/23/2023 HGB 14.8 08/23/2023 HCT 45.9 08/23/2023 MCV 87.9 08/23/2023 PLT 211 08/23/2023 Cardiac profile: No results found for: BNP, TROPONINI Coagulation: No results found for: PROTIME, INR, APTT Lipid panel: Lab Results Component Value Date CHOL 246 (H) 02/15/2023 HDL 37 (L) 02/15/2023 LDLCALC 02/15/2023 Comment: Calculated LDL invalid, triglycerides >400 mg/dl TRIG 423 (H) 02/15/2023 Other: Lab Results Component Value Date HGBA1C 6.9 (H) 08/23/2023 TSH 3.840 02/15/2023 Chest Imaging: CXR: CT Chest wo contrast: CTA Chest w and wo contrast: Cardiac Studies: Telemetry findings: Last EKG: No results found for this or any previous visit. Last Echo: No results found for this or any previous visit. Last Cath: No results found for this or any previous visit. Last Stress Test: No results found for this or any previous visit. Last EP study: No results found for this or any previous visit. Assessment/Plan #STEMI/CAD w/ 99% occlusion in the Mid RCA (culprit lesion) s/p PCI POD#0 - EKG consistent with borderline ST depression (inferior leads), and borderline ST elevation (anterior leads) -- Urgent cardiac catheterization with PCI to Mid RCA -- Brilinta/ASA load -- SYED to RCA placed -- Post-cardiac catheterizations orders placed -- EKG in AM including now -- Nitro PRN chest pain (helping patient) -- Start ASA, Statin, BB, Brilinta -- ACEi after BMP returns and if blood pressure allows (AM likely) -- Complete Echo -- Cardiac rehab consult -- Cardiac diet -- Troponin q6 until downtrending -- Lipid Panel 316/Hemoglobin A1c 6.5 -- IVF hydration -- Daily EKG -- Daily CBC/BMP/Mg/Phos #DM2 -- Hemoglobin A1c 6.5 -- Hold home metfromin and glimepiride -- Start low dose SS as appropriate #Essential HTN -- Holding home hydrochlorothiazide, 25mg PO, and Lisinopril, 40mg PO, as patient is on Nitroglycerin -- Start lisinopril 40 mg PO in am, pending creatinine labs s/p contrast #HLD -- Continue Rosuvastatin 40 PO daily #HARIKA -- Continue Paroxetine 10mg PO daily - Goals of Care: No Order - DVT Prophylaxis: SCD's or Sequential Compression Device (Off heparin, start SubQ low molecular weight heparin) - GI Prophylaxis: Protonix daily - Diet: Cardiac - BMI Classification: There is no height or weight on file to calculate BMI. - Disposition: Admit to CCU. Associated attestation - Henrique Pavon MD - 12/28/2023 11:37 AM EDT I, Dr. Pavon, saw and evaluated the patient on 12/27/2023. I personally obtained the angeles and critical portions of the history and physical exam. I reviewed the chart and discussed the patient with the resident. I agree with the resident's medical decision making. Patient without past cardiac history, here with acute chest pain and lateral ST elevation on ekg. Plan for emergent cath. Agree with aspirin, brilinta, heparin loads. Note: Due to the emergent nature of the procedure, H&P performed prior to the procedure, but documentation taking place after. Please see cath report for post-cath assessment and plan. [facility] 12-27-2023 History and physical note Images from the original note were not included. [facility] [place] [facility] CCU HISTORY & PHYSICAL Patient Name: Sabrina Reyes : 1955 Date of Admission: 12/27/2023 10:00 PM Established airport clerk: N/A Subjective: Chief Complaint: Chest Pain History of Present Illness: Sabrina Reyes is a 68 y.o. male with PMH HARIKA essential hypertension, DM2 c/w diabetic neuropathy, Hyper-cholesterolemia/triglyceride adelfo that presented to [facility] on 12/27/2023 from home due to complaints of chest pain. En route to the ED, the patient received aspirin and 2 nitroglycerine via EMS. In the ED (12/27/2023), the patient endorsed chest pain that radiated to his back. Purportedly, the pain registed 20/10 along with mild SOB. Shortly after he became diaphoretic, cold and clammy. Per hospital STEMI activation was started at roughly b/t [id number]. Interventional cardiology came to bedside. Patient was immediately taken to the paint laboratory technician. ED triage (12/27/2023) vitals HR 80, RR 20, BP 125/94, Labs Troponin .406, Pro BNP 869, Triglycerides 316, SED 11, Hba1c 6.5, WBC 10.9. EKG: L-[place] deviation, borderline ST depression (inferior leads), and borderline ST elevation (anterior leads). Tonight (12/28/2023) , shortly after PCI s/p SYED to the RCA x1, the patient was seen at bedside, resting comfortably and responding appropriately; he was accompanied by his . The patient is currently on nitroglycerin for pain control, with plans to warn as tolerated. Patient has never experienced this type of pain before. In addition, he does not have a history of drinking, smoking or IV drug use. Regarding Ros, the patient denied constitutional sxs, appetite change, unexpected weight change, chest pain, palpitations, sob, cough, abd pain, distention, nausea, vomiting, diarrhea, constipation, dysuria, increased frequency or urgency, lightheadedness, or confusion. Patient did endorse neck pain. Review of Systems: Review of Systems All other systems reviewed and are negative. Past Medical History: Past Medical History: Diagnosis Date Essential hypertension [address] head 09/16 Fracture of scaphoid bone of hand 2010 left - cast only Generalized anxiety disorder 2016 History of colonic polyps 05/2014 [facility]- defers rech History of DVT (deep vein thrombosis) 1991 RUE - ? 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 Family History: Family History Problem Relation Name Age of Onset COPD Mother Tamiko age 72, smoker COPD Father Adelfo age 77, smoker Other ([id number]) Brother drowned age 9 Other (Other) Maternal Grandmother in 90s Social History: Social History Tobacco Use Smoking status: Never Smokeless tobacco: Never Substance Use Topics Alcohol use: No Alcohol/week: 0.0 standard drinks of alcohol Drug use: No Allergies: Allergies Allergen Reactions Codeine Hives Medications: Current Outpatient Medications Medication Instructions aspirin 81 mg, Oral, Daily glimepiride (Amaryl) 1 MG tablet TAKE 1 TABLET BY MOUTH EVERY MORNING BEFORE BREAKFAST OR FIRST MAIN MEAL OF THE DAY hydroCHLOROthiazide (HYDRODiuril) 25 MG tablet Decrease to one half tab q day Lancets (OneTouch Delica Plus [id number]) misc USE twice a day lisinopril 40 MG tablet take 1 tablet by mouth once daily metFORMIN (Glucophage) 500 MG tablet Increase to 2 tabs every morning and one each PM with supper OneTouch Verio test strip USE 1 STRIP TWO TIMES DAILY (BEFORE MEALS) AND IF NEEDED FOR SYMPTOMS OF IRREGULAR BLOOD GLUCOSE PARoxetine (PAXIL) 10 mg, Oral, Every morning simvastatin (ZOCOR) 80 mg, Oral, Nightly Objective: Physical Examination: BP (!) 128/95 Pulse 80 Resp 20 No intake or output data in the 24 hours ending 12/27/232226 Physical Exam Constitutional: Appearance: Normal appearance. He is obese. HENT: Head: Normocephalic and atraumatic. Nose: Nose normal. Eyes: Pupils: Pupils are equal, round, and reactive to light. Neck: Vascular: No JVD. Cardiovascular: Rate and Rhythm: Normal rate and regular rhythm. Pulses: Normal pulses. Heart sounds: Normal heart sounds. Pulmonary: Effort: Pulmonary effort is normal. Breath sounds: Normal breath sounds. Abdominal: General: Abdomen is flat. Bowel sounds are normal. Palpations: Abdomen is soft. Musculoskeletal: General: Normal range of motion. Cervical back: Normal range of motion. Skin: General: Skin is warm. Capillary Refill: Capillary refill takes less than 2 seconds. Neurological: Mental Status: He is alert and oriented to person, place, and time. Psychiatric: Mood and Affect: Mood normal. Behavior: Behavior normal. Laboratory Tests: BMP: Lab Results Component Value Date NA 137 02/15/2023 K 4.6 02/15/2023 CL 105 02/15/2023 CO2 20 08/23/2023 BUN 16 08/23/2023 CREATININE 1.22 08/23/2023 GLUCOSE 120 (H) 08/23/2023 CALCIUM 9.4 08/23/2023 CBC: Lab Results Component Value Date WBC 7.8 08/23/2023 HGB 14.8 08/23/2023 HCT 45.9 08/23/2023 MCV 87.9 08/23/2023 PLT 211 08/23/2023 Cardiac profile: No results found for: BNP, TROPONINI Coagulation: No results found for: PROTIME, INR, APTT Lipid panel: Lab Results Component Value Date CHOL 246 (H) 02/15/2023 HDL 37 (L) 02/15/2023 LDLCALC 02/15/2023 Comment: Calculated LDL invalid, triglycerides >400 mg/dl TRIG 423 (H) 02/15/2023 Other: Lab Results Component Value Date HGBA1C 6.9 (H) 08/23/2023 TSH 3.840 02/15/2023 Chest Imaging: CXR: CT Chest wo contrast: CTA Chest w and wo contrast: Cardiac Studies: Telemetry findings: Last EKG: No results found for this or any previous visit. Last Echo: No results found for this or any previous visit. Last Cath: No results found for this or any previous visit. Last Stress Test: No results found for this or any previous visit. Last EP study: No results found for this or any previous visit. Assessment/Plan #STEMI/CAD w/ 99% occlusion in the Mid RCA (culprit lesion) s/p PCI POD#0 - EKG consistent with borderline ST depression (inferior leads), and borderline ST elevation (anterior leads) -- Urgent cardiac catheterization with PCI to Mid RCA -- Brilinta/ASA load -- SYDE to RCA placed -- Post-cardiac catheterizations orders placed -- EKG in AM including now -- Nitro PRN chest pain (helping patient) -- Start ASA, Statin, BB, Brilinta -- ACEi after BMP returns and if blood pressure allows (AM likely) -- Complete Echo -- Cardiac rehab consult -- Cardiac diet -- Troponin q6 until downtrending -- Lipid Panel 316/Hemoglobin A1c 6.5 -- IVF hydration -- Daily EKG -- Daily CBC/BMP/Mg/Phos #DM2 -- Hemoglobin A1c 6.5 -- Hold home metfromin and glimepiride -- Start low dose SS as appropriate #Essential HTN -- Holding home hydrochlorothiazide, 25mg PO, and Lisinopril, 40mg PO, as patient is on Nitroglycerin -- Start lisinopril 40 mg PO in am, pending creatinine labs s/p contrast #HLD -- Continue Rosuvastatin 40 PO daily #HARIKA -- Continue Paroxetine 10mg PO daily - Goals of Care: No Order - DVT Prophylaxis: SCD's or Sequential Compression Device (Off heparin, start SubQ low molecular weight heparin) - GI Prophylaxis: Protonix daily - Diet: Cardiac - BMI Classification: There is no height or weight on file to calculate BMI. - Disposition: Admit to CCU. Associated attestation - Henrique Pavon MD - 12/28/2023 11:37 AM EDT I, Dr. Pavon, saw and evaluated the patient on 12/27/2023. I personally obtained the [place] and critical portions of the history and physical exam. I reviewed the chart and discussed the patient with the resident. I agree with the resident's medical decision making. Patient without past cardiac history, here with acute chest pain and lateral ST elevation on ekg. Plan for emergent cath. Agree with aspirin, brilinta, heparin loads. Note: Due to the emergent nature of the procedure, H&P performed prior to the procedure, but documentation taking place after. Please see cath report for post-cath assessment and plan. documented in this encounter [facility] 12-27-2023 Emergency department Note Pt received 324 mg of aspirin, 2 nitroglycerin w/ ems Caprice Marx RN 12/27/232202 [facility] 12-27-2023 Emergency department Note Pt received 324 mg of aspirin, 2 nitroglycerin w/ ems Caprice Marx RN 12/27/232202 EMERGENCY DEPARTMENT ENCOUNTER Pt Name: Sabrina Reyes Birthdate 1955 Date of evaluation: 12/27/2023 ED Provider: Kellie Duval MD CHIEF COMPLAINT Chief Complaint Patient presents with Chest Pain Chest pain started at 7pm, pt found laying down with legs up. A&Ox4 HISTORY OF PRESENT ILLNESS (Location/Symptom, Timing/Onset, Context/Setting, Quality, Duration, Modifying Factors, Severity) Note limiting factors. I wore appropriate PPE for the entirety of this encounter. HPI Sabrina Reyes is a 68 y.o. who presents to the emergency department as STEMI activation for chest pain that began around 7pm this evening and radiates to his left back. Patient received 324mg aspirin and 2 nitroglycerin via EMS en route to the ED. Endorses 20/10 chest pain and mild shortness of breath. He is also now experiencing diaphoresis stating he feels cold and clammy. Denies fevers, chills, nausea, vomiting. Interventional cardiology is at bedside. Nursing Notes were reviewed. Limitations to history: None Outside historians: EMS REVIEW OF SYSTEMS Review of Systems Pertinent positives and negatives as per HPI. PAST MEDICAL HISTORY Past Medical History: Diagnosis Date Essential hypertension [address] head 09/16 Fracture of scaphoid bone of hand 2010 left - cast only Generalized anxiety disorder 2016 History of colonic polyps 05/2014 [facility]- defers rech History of DVT (deep vein thrombosis) 1991 RUE - ? 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 GLIMEPIRIDE (AMARYL) 1 MG TABLET TAKE 1 TABLET BY MOUTH EVERY MORNING BEFORE BREAKFAST OR FIRST MAIN MEAL OF THE DAY HYDROCHLOROTHIAZIDE (HYDRODIURIL) 25 MG TABLET Decrease to one half tab q day LANCETS (ONETOUCH DELICA PLUS [id number]) MISC USE twice a day LISINOPRIL 40 MG TABLET take 1 tablet by mouth once daily METFORMIN (GLUCOPHAGE) 500 MG TABLET Increase to 2 tabs every morning and one each PM with supper ONETOUCH VERIO TEST STRIP USE 1 STRIP TWO TIMES DAILY (BEFORE MEALS) AND IF NEEDED FOR SYMPTOMS OF IRREGULAR BLOOD GLUCOSE PAROXETINE (PAXIL) 10 MG TABLET Take 1 tablet (10 mg) by mouth every morning. SIMVASTATIN (ZOCOR) 80 MG TABLET Take 1 tablet (80 mg) by mouth Nightly for 90 doses. ALLERGIES Codeine FAMILY HISTORY Family History Problem Relation Name Age of Onset COPD Mother Tamiko age 72, smoker COPD Father Adelfo age 77, smoker Other ([id number]) Brother drowned age 9 Other (Other) Maternal Grandmother in 90s SOCIAL HISTORY Social History Socioeconomic History Marital status: Tobacco Use Smoking status: Never Smokeless tobacco: Never Substance and Sexual Activity Alcohol use: No Alcohol/week: 0.0 standard drinks of alcohol Drug use: No Social History Narrative to Yessy since 1978. NS or drinker ,no children. Retired from [employer], in 02/19. Social Determinants of Health Financial Resource Strain: Low Risk (06/05/2021) Received from [facility] Overall Financial Resource Strain (CARDIA) Difficulty of Paying Living Expenses: Not hard at all Food Insecurity: No Food Insecurity (06/05/2021) Received from [facility] Hunger Vital Sign Worried About Running Out of Food in the Last Year: Never true Ran Out of Food in the Last Year: Never true Transportation Needs: No Transportation Needs (11/16/2019) Received from [facility] PRAPARE - Transportation Lack of Transportation (Medical): No Lack of Transportation (Non-Medical): No Physical Activity: Inactive (11/16/2019) Received from [facility] Exercise Vital Sign Days of Exercise per Week: 0 days Minutes of Exercise per Session: 0 min Stress: No Stress Concern Present (11/16/2019) Received from [facility] [place] [facility] [employer] [facility] - Occupational Stress Questionnaire Feeling of Stress : Only a little Social Connections: Socially Isolated (11/16/2019) Received from [facility] Social Connection and Isolation Panel [NHANES] Frequency of Communication with Friends and Family: Never Frequency of Social Gatherings with Friends and Family: Never Attends [employer] Services: Never Active Member of Clubs or Organizations: No Attends Club or Organization Meetings: Never Marital Status: SCREENINGS PHYSICAL EXAM ED Triage Vitals [12/27/232200] Temp Heart Rate Resp BP -- 80 20 (!) 125/94 SpO2 Temp src Heart Rate Source Patient Position -- -- -- -- BP Location FiO2 (%) -- -- Physical Exam Constitutional: General: He is not in acute distress. Appearance: He is well-developed. He is diaphoretic. Eyes: Extraocular Movements: Extraocular movements intact. Cardiovascular: Rate and Rhythm: Normal rate and regular rhythm. Comments: 2+ radial pulses bilaterally Pulmonary: Effort: Pulmonary effort is normal. Breath sounds: Normal breath sounds. Abdominal: Palpations: Abdomen is soft. Musculoskeletal: Right lower leg: No edema. Left lower leg: No edema. Skin: General: Skin is warm. Neurological: General: No focal deficit present. Mental Status: He is alert and oriented to person, place, and time. Psychiatric: Mood and Affect: Mood normal. Behavior: Behavior normal. DIAGNOSTIC RESULTS RADIOLOGY (Per Emergency Physician): Interpretation per the Radiologist below, if available at the time of this note: No orders to display LABS: Labs Reviewed - No data to display All other labs were within normal range or not returned as of this dictation. EMERGENCY DEPARTMENT COURSE and DIFFERENTIAL DIAGNOSIS/MDM: Vitals: Vitals: 12/27/23220012/27/232203 BP: (!) 125/94 (!) 128/95 Pulse: 80 Resp: 20 The patient presented with a chief complaint of chest pain. The differential diagnosis associated with this patient's presentation includes STEMI, ACS, heart failure. Our workup consisted of ordering/reviewing EKG. Patient received 24 mg aspirin and 2 nitroglycerin en route to the ED. STEMI activation was initiated prior to patient arrival and interventional cardiology was present to evaluate patient at bedside. EKG shows regular rate and rhythm, normal MA interval, narrow QRS, ST elevations in 1, aVL, V2, ST segment depressions in V4, V5, V6 consistent with STEMI. Patient was given heparin and Brilinta. He was rushed to the Cardiac Tech for urgent intervention. External records reviewed: none Diagnostics interpreted by me: EKG(s) EKG shows regular rate and rhythm, normal MA interval, narrow QRS, ST elevations in 1, aVL, V2, ST segment depressions in V4, V5, V6 consistent with STEMI Discussions with other clinicians: Attending physician Chronic conditions impacting care: none Social determinants of health affecting care: none ED Medications managed: Medications ticagrelor (Brilinta) tablet (180 mg Oral Given 12/27/232200) fentaNYL (Sublimaze) injection (50 mcg IntraVENous Given 12/27/232201) heparin injection (4,000 Units IntraVENous Given 12/27/232202) Prescription drugs considered: Heparin, Brilinta PROCEDURES: Unless otherwise noted below, none Procedures FINAL IMPRESSION 1. STEMI (ST elevation myocardial infarction) (HCC) DISPOSITION PATIENT REFERRED TO: No follow-up provider specified. DISCHARGE MEDICATIONS: New Prescriptions No medications on file (Comment: Please note this report has been produced using speech recognition software and may contain errors related to that system including errors in grammar, punctuation, and spelling, as well as words and phrases that may be inappropriate. If there are any questions or concerns please feel free to contact the dictating provider for clarification.) Kellie Duval MD (electronically signed) Emergency Medicine Provider Kellie Duval MD Resident 12/28/23 7720 documented in this encounter [facility] 12-27-2023 Physician Emergency department Note EMERGENCY DEPARTMENT ENCOUNTER Pt Name: Sabrina Reyes Birthdate 1955 Date of evaluation: 12/27/2023 ED Provider: Kellie Duval MD CHIEF COMPLAINT Chief Complaint Patient presents with Chest Pain Chest pain started at 7pm, pt found laying down with legs up. A&Ox4 HISTORY OF PRESENT ILLNESS (Location/Symptom, Timing/Onset, Context/Setting, Quality, Duration, Modifying Factors, Severity) Note limiting factors. I wore appropriate PPE for the entirety of this encounter. HPI Sabrina Reyes is a 68 y.o. who presents to the emergency department as STEMI activation for chest pain that began around 7pm this evening and radiates to his left back. Patient received 324mg aspirin and 2 nitroglycerin via EMS en route to the ED. Endorses 20/10 chest pain and mild shortness of breath. He is also now experiencing diaphoresis stating he feels cold and clammy. Denies fevers, chills, nausea, vomiting. Interventional cardiology is at bedside. Nursing Notes were reviewed. Limitations to history: None Outside historians: EMS REVIEW OF SYSTEMS Review of Systems Pertinent positives and negatives as per HPI. PAST MEDICAL HISTORY Past Medical History: Diagnosis Date Essential hypertension [address] head 09/16 Fracture of scaphoid bone of hand 2010 left - cast only Generalized anxiety disorder 2016 History of colonic polyps 05/2014 [facility]- defers rech History of DVT (deep vein thrombosis) 1991 RUE - ? 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 GLIMEPIRIDE (AMARYL) 1 MG TABLET TAKE 1 TABLET BY MOUTH EVERY MORNING BEFORE BREAKFAST OR FIRST MAIN MEAL OF THE DAY HYDROCHLOROTHIAZIDE (HYDRODIURIL) 25 MG TABLET Decrease to one half tab q day LANCETS (ONETOUCH DELICA PLUS [id number]) MISC USE twice a day LISINOPRIL 40 MG TABLET take 1 tablet by mouth once daily METFORMIN (GLUCOPHAGE) 500 MG TABLET Increase to 2 tabs every morning and one each PM with supper ONETOUCH VERIO TEST STRIP USE 1 STRIP TWO TIMES DAILY (BEFORE MEALS) AND IF NEEDED FOR SYMPTOMS OF IRREGULAR BLOOD GLUCOSE PAROXETINE (PAXIL) 10 MG TABLET Take 1 tablet (10 mg) by mouth every morning. SIMVASTATIN (ZOCOR) 80 MG TABLET Take 1 tablet (80 mg) by mouth Nightly for 90 doses. ALLERGIES Codeine FAMILY HISTORY Family History Problem Relation Name Age of Onset COPD Mother Tamiko age 72, smoker COPD Father Adelfo age 77, smoker Other ([id number]) Brother drowned age 9 Other (Other) Maternal Grandmother in 90s SOCIAL HISTORY Social History Socioeconomic History Marital status: Tobacco Use Smoking status: Never Smokeless tobacco: Never Substance and Sexual Activity Alcohol use: No Alcohol/week: 0.0 standard drinks of alcohol Drug use: No Social History Narrative to Yessy since 1978. NS or drinker ,no children. Retired from [employer], in 02/19. Social Determinants of Health Financial Resource Strain: Low Risk (06/05/2021) Received from [facility] Overall Financial Resource Strain (CARDIA) Difficulty of Paying Living Expenses: Not hard at all Food Insecurity: No Food Insecurity (06/05/2021) Received from [facility] Hunger Vital Sign Worried About Running Out of Food in the Last Year: Never true Ran Out of Food in the Last Year: Never true Transportation Needs: No Transportation Needs (11/16/2019) Received from [facility] PRAPARE - Transportation Lack of Transportation (Medical): No Lack of Transportation (Non-Medical): No Physical Activity: Inactive (11/16/2019) Received from [facility] Exercise Vital Sign Days of Exercise per Week: 0 days Minutes of Exercise per Session: 0 min Stress: No Stress Concern Present (11/16/2019) Received from [facility] [employer] [place] [facility] [employer] [facility] - Occupational Stress Questionnaire Feeling of Stress : Only a little Social Connections: Socially Isolated (11/16/2019) Received from [facility] Social Connection and Isolation Panel [NHANES] Frequency of Communication with Friends and Family: Never Frequency of Social Gatherings with Friends and Family: Never Attends Mormon Services: Never Active Member of Clubs or Organizations: No Attends Club or Organization Meetings: Never Marital Status: SCREENINGS PHYSICAL EXAM ED Triage Vitals [12/27/232200] Temp Heart Rate Resp BP -- 80 20 (!) 125/94 SpO2 Temp src Heart Rate Source Patient Position -- -- -- -- BP Location FiO2 (%) -- -- Physical Exam Constitutional: General: He is not in acute distress. Appearance: He is well-developed. He is diaphoretic. Eyes: Extraocular Movements: Extraocular movements intact. Cardiovascular: Rate and Rhythm: Normal rate and regular rhythm. Comments: 2+ radial pulses bilaterally Pulmonary: Effort: Pulmonary effort is normal. Breath sounds: Normal breath sounds. Abdominal: Palpations: Abdomen is soft. Musculoskeletal: Right lower leg: No edema. Left lower leg: No edema. Skin: General: Skin is warm. Neurological: General: No focal deficit present. Mental Status: He is alert and oriented to person, place, and time. Psychiatric: Mood and Affect: Mood normal. Behavior: Behavior normal. DIAGNOSTIC RESULTS RADIOLOGY (Per Emergency Physician): Interpretation per the Radiologist below, if available at the time of this note: No orders to display LABS: Labs Reviewed - No data to display All other labs were within normal range or not returned as of this dictation. EMERGENCY DEPARTMENT COURSE and DIFFERENTIAL DIAGNOSIS/MDM: Vitals: Vitals: 12/27/23220012/27/232203 BP: (!) 125/94 (!) 128/95 Pulse: 80 Resp: 20 The patient presented with a chief complaint of chest pain. The differential diagnosis associated with this patient's presentation includes STEMI, ACS, heart failure. Our workup consisted of ordering/reviewing EKG. Patient received 24 mg aspirin and 2 nitroglycerin en route to the ED. STEMI activation was initiated prior to patient arrival and interventional cardiology was present to evaluate patient at bedside. EKG shows regular rate and rhythm, normal MA interval, narrow QRS, ST elevations in 1, aVL, V2, ST segment depressions in V4, V5, V6 consistent with STEMI. Patient was given heparin and Brilinta. He was rushed to the Cardiac Tech for urgent intervention. External records reviewed: none Diagnostics interpreted by me: EKG(s) EKG shows regular rate and rhythm, normal MA interval, narrow QRS, ST elevations in 1, aVL, V2, ST segment depressions in V4, V5, V6 consistent with STEMI Discussions with other clinicians: Attending physician Chronic conditions impacting care: none Social determinants of health affecting care: none ED Medications managed: Medications ticagrelor (Brilinta) tablet (180 mg Oral Given 12/27/232200) fentaNYL (Sublimaze) injection (50 mcg IntraVENous Given 12/27/232201) heparin injection (4,000 Units IntraVENous Given 12/27/232202) Prescription drugs considered: Heparin, Brilinta PROCEDURES: Unless otherwise noted below, none Procedures FINAL IMPRESSION 1. STEMI (ST elevation myocardial infarction) (HCC) DISPOSITION PATIENT REFERRED TO: No follow-up provider specified. DISCHARGE MEDICATIONS: New Prescriptions No medications on file (Comment: Please note this report has been produced using speech recognition software and may contain errors related to that system including errors in grammar, punctuation, and spelling, as well as words and phrases that may be inappropriate. If there are any questions or concerns please feel free to contact the dictating provider for clarification.) Kellie Duval MD (electronically signed) Emergency Medicine Provider Kellie Duval MD Resident 12/28/23 9023 [employer] Phone: 11-29-2023 Telephone encounter Note Recent Visits Date Type Provider Dept 08/23/23 Office Visit Orion Craft DO [facility] 02/15/23 Office Visit Orion Craft DO [facility] Showing recent visits within past 365 days and meeting all other requirements Future Appointments No visits were found meeting these conditions. Showing future appointments within next 90 days and meeting all other requirements Requested Prescriptions Pending Prescriptions Disp Refills glimepiride (Amaryl) 1 MG tablet [Pharmacy Med Name: Glimepiride 1 MG Oral Tablet] 100 tablet 2 Sig: TAKE 1 TABLET BY MOUTH EVERY MORNING BEFORE BREAKFAST OR FIRST MAIN MEAL OF THE DAY Provider: Orion Craft DO Verified pharmacy: yes Verified day(s) supplied: yes Verified refill(s) needed (previous prescription showing no refills in chart): Yes Have you received any controlled medications from any other provider? N/A Overdue for visit: No If yes - patient scheduled? Yes Most recent labs completed in chart? Yes Diabetes: Lab Results Component Value Date HGBA1C 6.9 (H) 08/23/2023 MICROALBCREA < 30 mg 02/16/2022 BUNCREATININ SEE NOTE: 08/23/2023 K 4.6 02/15/2023 NA 137 02/15/2023 LDL 132 (A) 02/09/2022 HDL 37 (L) 02/15/2023 CHOLESTEROLT 185 08/23/2023 TRIG 423 (H) 02/15/2023 T [facility] 11-29-2023 Miscellaneous Notes Recent Visits Date Type Provider Dept 08/23/23 Office Visit Orion Craft DO [facility] 02/15/23 Office Visit Orion Craft DO [facility] Showing recent visits within past 365 days and meeting all other requirements Future Appointments No visits were found meeting these conditions. Showing future appointments within next 90 days and meeting all other requirements Requested Prescriptions Pending Prescriptions Disp Refills glimepiride (Amaryl) 1 MG tablet [Pharmacy Med Name: Glimepiride 1 MG Oral Tablet] 100 tablet 2 Sig: TAKE 1 TABLET BY MOUTH EVERY MORNING BEFORE BREAKFAST OR FIRST MAIN MEAL OF THE DAY Provider: Orion Craft DO Verified pharmacy: yes Verified day(s) supplied: yes Verified refill(s) needed (previous prescription showing no refills in chart): Yes Have you received any controlled medications from any other provider? N/A Overdue for visit: No If yes - patient scheduled? Yes Most recent labs completed in chart? Yes Diabetes: Lab Results Component Value Date HGBA1C 6.9 (H) 08/23/2023 MICROALBCREA < 30 mg 02/16/2022 BUNCREATININ SEE NOTE: 08/23/2023 K 4.6 02/15/2023 NA 137 02/15/2023 LDL 132 (A) 02/09/2022 HDL 37 (L) 02/15/2023 CHOLESTEROLT 185 08/23/2023 TRIG 423 (H) 02/15/2023 documented in this encounter [facility] [employer] 10-30-2023 Telephone encounter Note Recent Visits Date Type Provider Dept 09/27/23 Clinical Support SCHEDULE, [facility] 08/23/23 Office Visit Orion Craft, DO [facility] 02/15/23 Office Visit Orion Craft, DO [facility] Showing recent visits within past 365 days and meeting all other requirements Future Appointments Date Type Provider Dept 11/01/23 Appointment SCHEDULE, [facility] Showing future appointments within next 90 days and meeting all other requirements Requested Prescriptions Pending Prescriptions Disp Refills OneTouch Verio test strip 300 each 3 Sig: USE 1 STRIP TWO TIMES DAILY (BEFORE MEALS) AND IF NEEDED FOR SYMPTOMS OF IRREGULAR BLOOD GLUCOSE Provider: Orion Craft DO Overdue for visit: No If yes - patient scheduled? Yes Most recent labs completed in chart? Yes Verified pharmacy: yes Verified day(s) supplied: yes Verified refill(s) needed (previous prescription showing no refills in chart): Yes Have you received any controlled medications from any other provider? N/A Diabetes: Lab Results Component Value Date HGBA1C 6.9 (H) 08/23/2023 MICROALBCREA < 30 mg 02/16/2022 BUNCREATININ SEE NOTE: 08/23/2023 K 4.6 02/15/2023 NA 137 02/15/2023 LDL 132 (A) 02/09/2022 HDL 37 (L) 02/15/2023 CHOLESTEROLT 185 08/23/2023 TRIG 423 (H) 02/15/2023 [facility] 10-30-2023 Miscellaneous Notes Recent Visits Date Type Provider Dept 09/27/23 Clinical Support SCHEDULE, [facility] 08/23/23 Office Visit Orion Craft, DO [facility] 02/15/23 Office Visit Orion Craft, DO [facility] Showing recent visits within past 365 days and meeting all other requirements Future Appointments Date Type Provider Dept 11/01/23 Appointment SCHEDULE, [facility] Showing future appointments within next 90 days and meeting all other requirements Requested Prescriptions Pending Prescriptions Disp Refills OneTouch Verio test strip 300 each 3 Sig: USE 1 STRIP TWO TIMES DAILY (BEFORE MEALS) AND IF NEEDED FOR SYMPTOMS OF IRREGULAR BLOOD GLUCOSE Provider: Orion Craft DO Overdue for visit: No If yes - patient scheduled? Yes Most recent labs completed in chart? Yes Verified pharmacy: yes Verified day(s) supplied: yes Verified refill(s) needed (previous prescription showing no refills in chart): Yes Have you received any controlled medications from any other provider? N/A Diabetes: Lab Results Component Value Date HGBA1C 6.9 (H) 08/23/2023 MICROALBCREA < 30 mg 02/16/2022 BUNCREATININ SEE NOTE: 08/23/2023 K 4.6 02/15/2023 NA 137 02/15/2023 LDL 132 (A) 02/09/2022 HDL 37 (L) 02/15/2023 CHOLESTEROLT 185 08/23/2023 TRIG 423 (H) 02/15/2023 documented in this encounter [facility] 09-27-2023 History of Present illness Narrative The patient, Sabrina Reyes, identity was verified by name. Supervising provider for clinic visit: Dr. Craft Chief Complaint Patient presents with Blood Pressure Check Elevated and increase of medication Reason for BP visit: increase of medication BP (!) 140/85 Pulse 63 SpO2 97% BP Readings from Last 3 Encounters: 09/27/23 (!) 140/85 08/23/23 (!) 144/84 02/15/23 128/80 Pulse Readings from Last 3 Encounters: 09/27/23 63 08/23/23 76 02/15/23 68 Patient denies any shortness of breath or distress at this time. Patient states compliant with medications as written: yes Medication Reconciliation completed. BP medication taken prior to this visit? yes BP taken with manual Home monitoring BP: yes Phone number where patient can be reached: see chart Pt advised if follow up needed, outreach will occur within 48 hrs. Future Appointments Date Time Provider Department Center 02/28/2024 9:30 AM Orion Craft DO [facility] Blood pressure still too high. I have increased lisinopril to 40 mg daily. Recheck blood pressure and pulse with staff in 1 month. documented in this encounter [facility] 09-27-2023 History of Present illness Narrative The patient, Sabrina Reyes, identity was verified by name. Supervising provider for clinic visit: Dr. Craft Chief Complaint Patient presents with Blood Pressure Check Elevated and increase of medication Reason for BP visit: increase of medication BP (!) 140/85 Pulse 63 SpO2 97% BP Readings from Last 3 Encounters: 09/27/23 (!) 140/85 08/23/23 (!) 144/84 02/15/23 128/80 Pulse Readings from Last 3 Encounters: 09/27/23 63 08/23/23 76 02/15/23 68 Patient denies any shortness of breath or distress at this time. Patient states compliant with medications as written: yes Medication Reconciliation completed. BP medication taken prior to this visit? yes BP taken with manual Home monitoring BP: yes Phone number where patient can be reached: see chart Pt advised if follow up needed, outreach will occur within 48 hrs. Future Appointments Date Time Provider Department Center 02/28/2024 9:30 AM DO CHERIE Henderson [facility] Blood pressure still too high. I have increased lisinopril to 40 mg daily. Recheck blood pressure and pulse with staff in 1 month. LMTRC documented in this encounter [facility] 09-27-2023 History of Present illness Narrative The patient, Sabrina Reyes, identity was verified by name. Supervising provider for clinic visit: Dr. Craft Chief Complaint Patient presents with Blood Pressure Check Elevated and increase of medication Reason for BP visit: increase of medication BP (!) 140/85 Pulse 63 SpO2 97% BP Readings from Last 3 Encounters: 09/27/23 (!) 140/85 08/23/23 (!) 144/84 02/15/23 128/80 Pulse Readings from Last 3 Encounters: 09/27/23 63 08/23/23 76 02/15/23 68 Patient denies any shortness of breath or distress at this time. Patient states compliant with medications as written: yes Medication Reconciliation completed. BP medication taken prior to this visit? yes BP taken with manual Home monitoring BP: yes Phone number where patient can be reached: see chart Pt advised if follow up needed, outreach will occur within 48 hrs. Future Appointments Date Time Provider Department Center 02/28/2024 9:30 AM Orion Craft DO [facility] Blood pressure still too high. I have increased lisinopril to 40 mg daily. Recheck blood pressure and pulse with staff in 1 month. LMTRC Patient notified and scheduled documented in this encounter [facility] 08-26-2023 Telephone encounter Note Medication name: OneTouch Verio test strip Medication dosage: 100 each Monthly quantity needed: 2 refills How many day supply requestin each Medication route: test strips Medication administration time(s): 2 times a day (BID) If taking medication PRN, reason for taking medication: N/A If this is a controlled substance do you receive this or any other controlled medication from any other doctor or facility: N/A Ordering provider: Dr. Craft Date of last office visit: 08/23/23 Date of next office visit: 02/28/24 Date of last refill: (see medication tab): 07/20/22 Updated/Validated preferred pharmacy: Yes [id number] - [place], [address] Patient instructed to contact the pharmacy prior to picking up the medication: Yes [facility] 08-26-2023 Miscellaneous Notes Medication name: OneTouch Verio test strip Medication dosage: 100 each Monthly quantity needed: 2 refills How many day supply requestin each Medication route: test strips Medication administration time(s): 2 times a day (BID) If taking medication PRN, reason for taking medication: N/A If this is a controlled substance do you receive this or any other controlled medication from any other doctor or facility: N/A Ordering provider: Dr. Craft Date of last office visit: 08/23/23 Date of next office visit: 02/28/24 Date of last refill: (see medication tab): 07/20/22 Updated/Validated preferred pharmacy: Yes [id number] - [place], [address] Patient instructed to contact the pharmacy prior to picking up the medication: Yes documented in this encounter [facility] 08-23-2023 History of Present illness Narrative Images from the original note were not included. [facility] [address] [place] [address] [address] [facility] [id number] Visit type: Established Patient Reason for Visit: Follow-up (Med check ) Assessment / Plan: Sabrina was seen today for follow-up. Diagnoses and all orders for this visit: Type 2 diabetes mellitus without complication, without long-term current use of insulin (CMS/HCC) (HCC) (Primary) Comments: Stable, continue metformin and glimepiride, needs to lose some weight Orders: - CBC auto differential; Future - Comprehensive metabolic panel; Future - Hemoglobin A1c; Future - CBC auto differential - Comprehensive metabolic panel - Hemoglobin A1c HARIKA (generalized anxiety disorder) Comments: Stable, continue Paxil Essential hypertension Comments: Uncontrolled, increase lisinopril 30 mg daily, continue HCTZ and. BP check 4 weeks Prostate cancer screening - PSA Total (Screening); Future - PSA Total (Screening) Hypercholesterolemia with hypertriglyceridemia Comments: Stable, continue Zocor Orders: - Lipid panel; Future - Lipid panel Other orders - metFORMIN (Glucophage) 500 MG tablet; Increase to 2 tabs every morning and one each PM with supper - PARoxetine (Paxil) 10 MG tablet; Take 1 tablet (10 mg) by mouth every morning. - glimepiride (Amaryl) 1 MG tablet; take 1 tablet by mouth every morning before BREAKFAST OR FIRST MAIN MEAL OF THE DAY - lisinopril 30 MG tablet; take 1 tablet by mouth once daily - hydroCHLOROthiazide (HYDRODiuril) 25 MG tablet; Decrease to one half tab q day - simvastatin (Zocor) 40 MG tablet; Take 1 tablet (40 mg) by mouth Nightly. Subjective: Patient ID: Sabrina Reyes is a 68 y.o. male. HPI non-smoker history of hypertension, hypercholesterolemia and type 2 diabetes presents for checkup. Not checking glucose levels regularly but when he does they are pretty well. No polyuria polydipsia or change in vision or skin. Overall feeling well. Has gained a few pounds. Review of Systems no recent earache sore throat or cough. Denies change in vision. No exertional chest pain shortness of breath or dyspnea. No palpitations PND orthopnea or claudication. No heartburn or dysphagia. No abdominal pain. Bowels are regular. No melena or blood. Will consent to PSA but defers LORRAINE. Of note he defers any type of colon cancer screening. Desires not to undergo a colonoscopy or Cologuard exam. Rare nocturia postvoid dribbling and denies dysuria or hematuria. No change in arthralgias. Allergies Allergen Reactions Codeine Hives Current Outpatient Medications on File Prior to Visit Medication Sig Dispense Refill aspirin 81 MG chewable tablet Chew 81 mg in the morning. [DISCONTINUED] glimepiride (Amaryl) 1 MG tablet take 1 tablet by mouth every morning before BREAKFAST OR FIRST MAIN MEAL OF THE DAY 90 tablet 1 [DISCONTINUED] hydroCHLOROthiazide (HYDRODiuril) 25 MG tablet Decrease to one half tab q day 90 tablet 1 [DISCONTINUED] lisinopril 20 MG tablet take 1 tablet by mouth once daily 90 tablet 3 [DISCONTINUED] metFORMIN (Glucophage) 500 MG tablet Increase to 2 tabs every morning and one each PM with supper 270 tablet 1 [DISCONTINUED] PARoxetine (Paxil) 10 MG tablet Take 1 tablet (10 mg) by mouth every morning. 90 tablet 1 [DISCONTINUED] simvastatin (Zocor) 40 MG tablet Take 1 tablet (40 mg) by mouth Nightly. 90 tablet 3 Lancets (OneTouch Delica Plus [id number]) misc USE twice a day OneTouch Verio test strip USE 1 STRIP TWO TIMES DAILY (BEFORE MEALS) AND IF NEEDED FOR SYMPTOMS OF IRREGULAR BLOOD GLUCOSE 100 each 2 No current facility-administered medications on file prior to visit. Patient Active Problem List Diagnosis History of colonic polyps Hypercholesterolemia with hypertriglyceridemia Essential hypertension Type 2 diabetes mellitus, without long-term current use of insulin (HCC) HARIKA (generalized anxiety disorder) Diabetes due to undrl condition w oth diabetic neuro comp ([facility]) Social History Tobacco Use Smoking status: Never Smokeless tobacco: Never Substance Use Topics Alcohol use: No Alcohol/week: 0.0 standard drinks of alcohol Past Surgical History: Procedure Laterality Date COLONOSCOPY 05/2014 per [facility] - small polyp due 2019 HERNIA REPAIR Right 2016 [facility] MENISCECTOMY Left 2011 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 Patient appears well, alert and oriented x 3, pleasant, cooperative. Vitals are as noted. No carotid bruits. Neck supple, no abnormal adenopathy, thyroid lesions or masses. Ears, nose and throat are normal without acute findings. Lungs are clear to auscultation. Heart is regular, without murmurs, gallops or ectopy. Abdomen is soft, non tender, without masses, hepatosplenomegaly, or bruits. Normal BS evident. Extremities are normal without edema. Peripheral pulses are fair. No worrisome skin lesions. Screening neurological exam is normal without focal deficits. Feet exam is unremarkable. Excellent color temperature and intact motor and sensory exam. Pulses are adequate. No skin breakdowns. documented in this encounter [facility] 08-23-2023 Instructions Orion Craft DO - 08/23/2023 10:00 AM EDT bp check with staff in 3-4 wks. documented in this encounter [facility] 02-26-2023 Telephone encounter Note Referral pended for doctor's signature [facility] 02-26-2023 Miscellaneous Notes Referral pended for doctor's signature Name of caller: Sabrina Reyes Contact phone number: [phone] Relationship to Patient: patient Provider: Dr Craft Practice: [facility] location Chief Complaint/Reason for Call: 02/26/23 Pt calling to ask for another referral to [facility] in [place] location for COLONOSCOPY pls advise call pt with details Best time of day caller can be reached: AM Patient advised that office/PCP has 24-48 business hours to return their call: Yes documented in this encounter [facility] 02-26-2023 Telephone encounter Note Name of caller: Sabrina Reyes Contact phone number: [phone] Relationship to Patient: patient Provider: Dr Craft Practice: [facility] location Chief Complaint/Reason for Call: 02/26/23 Pt calling to ask for another referral to [facility] in [facility] for COLONOSCOPY pls advise call pt with details Best time of day caller can be reached: AM Patient advised that office/PCP has 24-48 business hours to return their call: Yes [facility] 02-18-2023 Telephone encounter Note Transferred to result notes [facility] 02-18-2023 Miscellaneous Notes Transferred to result notes Message released to patient as written. Patient's further questions if applicable: na Pt would like medication to go to [facility] ([facility]) - [address] Were all questions from office addressed or relayed to the patient from encounter: Yes Placed call to patient. Unable to reach them by phone to discuss lab results. Left detailed message to return call to discuss results. ----- Message from Cynthia Zavaleta MA sent at 02/18/2023 7:48 AM EDT ----- ----- Message ----- From: Orion Craft DO Sent: 02/17/2023 9:24 PM EDT To: [facility] Diabetes under excellent control, CBC and chemistries normal. Only issue is substantially elevated triglycerides. I do not think the Zocor will get those to goal of less than 150 so I recommend changing the cholesterol-lowering drug to WelChol which is taken 2 tablets twice a day. Let me know if he consents to that change. Referral pended for doctor's signature documented in this encounter [facility] 02-18-2023 Telephone encounter Note Message released to patient as written. Patient's further questions if applicable: na Pt would like medication to go to [facility] - [address] Were all questions from office addressed or relayed to the patient from encounter: Yes [facility] 02-18-2023 Telephone encounter Note Placed call to patient. Unable to reach them by phone to discuss lab results. Left detailed message to return call to discuss results. [facility] 02-18-2023 Telephone encounter Note ----- Message from Cynthia Zavaleta MA sent at 02/18/2023 7:48 AM EDT ----- ----- Message ----- From: Orion Craft DO Sent: 02/17/2023 9:24 PM EDT To: [facility] Diabetes under excellent control, CBC and chemistries normal. Only issue is substantially elevated triglycerides. I do not think the Zocor will get those to goal of less than 150 so I recommend changing the cholesterol-lowering drug to WelChol which is taken 2 tablets twice a day. Let me know if he consents to that change. [facility] 02-18-2023 Telephone encounter Note Referral pended for doctor's signature [facility] 02-15-2023 History of Present illness Narrative Images from the original note were not included. [facility] [address] [place] [address] [address] [facility] [id number] Visit type: Established Patient Reason for Visit: Follow-up (6 month med check) Assessment / Plan: Sabrian was seen today for follow-up. Diagnoses and all orders for this visit: Type 2 diabetes mellitus with hyperglycemia, without long-term current use of insulin ([facility]) ([facility]) (Primary) Comments: Stable, continue metformin and Amaryl encourage better low-carb meal selection Orders: - CBC auto differential; Future - Comprehensive metabolic panel; Future - Hemoglobin A1c; Future - Lipid panel; Future - CBC auto differential - Comprehensive metabolic panel - Hemoglobin A1c - Lipid panel Essential hypertension Comments: Stable at home, continue lisinopril and hydrochlorothiazide Hypercholesterolemia with hypertriglyceridemia Comments: Stable, continue Zocor Orders: - TSH; Future - TSH History of colonic polyps Colon cancer screening HARIKA (generalized anxiety disorder) Comments: Stable, defers decreasing Paxil. Other orders - glimepiride (Amaryl) 1 MG tablet; Take 1 tablet (1 mg) by mouth every morning (before breakfast) for 180 doses. - hydroCHLOROthiazide (HYDRODiuril) 25 MG tablet; Decrease to one half tab q day - lisinopril 20 MG tablet; take 1 tablet by mouth once daily - metFORMIN (Glucophage) 500 MG tablet; take 1 tablet by mouth every morning and every evening with meals - PARoxetine (Paxil) 10 MG tablet; Take 1 tablet (10 mg) by mouth every morning. - simvastatin (Zocor) 40 MG tablet; Take 1 tablet (40 mg) by mouth Nightly. Subjective: Patient ID: Sabrina Reyes is a 67 y.o. male. HPI well-controlled hypertensive diabetic with hyperlipidemia and generalized anxiety presents with his for evaluation. Glucose levels a few times a month been excellent. Weight is stable. No change in vision but overdue for exam. No feet or skin concerns. His and they state his systolic blood pressure runs in the 120s at home. Presently on Paxil and he defers changing that or decreasing the med due to he has some agoraphobia. His says he is a recluse but enjoying life overall. No signs of depression. Review of Systems no recent earache sore throat or cough. Flu vaccinations up-to-date. No earache sore throat chest pain palpitations PND orthopnea claudication or edema. No dyspnea on exertion. No heartburn or dysphagia. No melena or blood. Bowels are regular. Overdue for colonoscopy had remote polypectomy 9 years ago. No orthopedic complaints. No true depression. Does not smoke or drink has been for almost 44 years Allergies Allergen Reactions Codejohan Alcantar Current Outpatient Medications on File Prior to Visit Medication Sig Dispense Refill aspirin 81 MG chewable tablet Chew 81 mg in the morning. Lancets (Carmolex,Touch Delica Plus [id number]) misc USE twice a day OneTouch Verio test strip USE 1 STRIP TWO TIMES DAILY (BEFORE MEALS) AND IF NEEDED FOR SYMPTOMS OF IRREGULAR BLOOD GLUCOSE 100 each 2 [DISCONTINUED] glimepiride (Amaryl) 1 MG tablet Take 1 tablet (1 mg) by mouth every morning (before breakfast) for 90 doses. 30 tablet 2 [DISCONTINUED] hydroCHLOROthiazide (HYDRODiuril) 25 MG tablet Decrease to one half tab q day [DISCONTINUED] lisinopril 20 MG tablet take 1 tablet by mouth once daily 90 tablet 1 [DISCONTINUED] metFORMIN (Glucophage) 500 MG tablet take 1 tablet by mouth every morning and every evening with meals 180 tablet 1 [DISCONTINUED] PARoxetine (Paxil) 10 MG tablet Take 1 tablet (10 mg) by mouth every morning. 90 tablet 1 [DISCONTINUED] simvastatin (Zocor) 40 MG tablet take 1 tablet by mouth nightly 90 tablet 1 No current facility-administered medications on file prior to visit. 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 Patient appears well, alert and oriented x 3, pleasant, cooperative. Vitals are as noted. No carotid bruits. Neck supple, no abnormal adenopathy, thyroid lesions or masses. Ears, nose and throat are normal without acute findings. Lungs are clear to auscultation. Heart is regular, without murmurs, gallops or ectopy. Abdomen is soft, non tender, without masses, hepatosplenomegaly, or bruits. Normal BS evident. Extremities are normal without edema. Peripheral pulses are fair. No worrisome skin lesions. Screening neurological exam is normal without focal deficits. documented in this encounter [facility] 02-15-2023 Miscellaneous Notes Addended by: SHY ARRIAZA on: 02/15/2023 11:47 AM Modules accepted: Orders documented in this encounter [facility] 02-15-2023 Note Addended by: SHY ARRIAZA on: 02/15/2023 11:47 AM Modules accepted: Orders [facility] 02-15-2023 Note Addended by: SHY ARRIAZA on: 02/15/2023 11:47 AM Modules accepted: Orders [facility] 01-28-2023 Telephone encounter Note Rx loaded Last ov 08/03/22 [facility] 01-28-2023 Miscellaneous Notes Rx loaded Last ov 08/03/22 documented in this encounter [facility] 10-10-2022 Telephone encounter Note Last appointment 08/03/2022 , Next appointment is 02/01/2023 Last filled 07/18/22 #180 with no refills [facility] 10-10-2022 Miscellaneous Notes Last appointment 08/03/2022 , Next appointment is 02/01/2023 Last filled 07/18/22 #180 with no refills documented in this encounter [facility] 08-03-2022 History of Present illness Narrative Images from the original note were not included. [facility] [address] [facility] [id number] Visit type: Established Patient Reason for Visit: Follow-up (4 month med check) Assessment / Plan: Sabrina was seen today for follow-up. Diagnoses and all orders for this visit: Type 2 diabetes mellitus with hyperglycemia, without long-term current use of insulin (CMS/HCC) (HCC) (Primary) Comments: Stable, continue glimepiride and low-carb meals and exercise Orders: - Comprehensive metabolic panel; Future - CBC auto differential; Future - Hemoglobin A1c; Future - Comprehensive metabolic panel - CBC auto differential - Hemoglobin A1c Hypercholesterolemia with hypertriglyceridemia Comments: Stable, continue simvastatin Orders: - Lipid panel; Future - Lipid panel Essential hypertension Comments: Stable, continue lisinopril with HCTZ Colon cancer screening - Cologuard colon cancer screening Prostate cancer screening - PSA Screening; Future - PSA Screening Other orders - PARoxetine (Paxil) 10 MG tablet; Take 1 tablet (10 mg) by mouth every morning. - simvastatin (Zocor) 40 MG tablet; Take 1 tablet (40 mg) by mouth Nightly. - lisinopril 20 MG tablet; One tablet daily - Diabetes Foot Exam Subjective: Patient ID: Sabrina Reyes is a 67 y.o. male. HPI hypertensive type II diabetic for about 1 year presents for checkup. Glucose levels have been excellent. Blood pressure readings well at home. Exercises regularly. Weight has been stable. Overdue for ophthalmologic exam. No unhealing skin lesions. He feels well overall. Review of Systems denies recent earache sore throat or cough. No exertional chest pain shortness of breath cough PND orthopnea claudication or edema. No heartburn or dysphagia. No melena or blood. No abdominal pain. Bowels are regular. Small colonic polyp years ago but no family history of colon cancer. Would consider Cologuard examination versus colonoscopy. Defers LORRAINE and denies postvoid dribbling nocturia or dysuria. Rare arthralgia. No unhealing skin lesions. Feels well on Paxil. Has hobbies, his is healthy and he is enjoying his prison Allergies Allergen Reactions Codejohan Alcantar Current Outpatient Medications on File Prior to Visit Medication Sig Dispense Refill aspirin 81 MG chewable tablet Chew 81 mg in the morning. glimepiride (Amaryl) 1 MG tablet Take 1 tablet (1 mg) by mouth every morning (before breakfast) for 30 doses. 30 tablet 2 hydroCHLOROthiazide (HYDRODiuril) 25 MG tablet Decrease to one half tab q day Lancets (Carmolex,Touch Delica Plus [id number]) [facility] [place] twice a day metFORMIN (Glucophage) 500 MG tablet Take 1 tablet (500 mg) by mouth in the morning and 1 tablet (500 mg) in the evening. Take with meals. Do all this for 180 doses. 180 tablet 0 OneTouch Verio test strip USE 1 STRIP TWO TIMES DAILY (BEFORE MEALS) AND IF NEEDED FOR SYMPTOMS OF IRREGULAR BLOOD GLUCOSE 100 each 2 [DISCONTINUED] lisinopril 20 MG tablet One q am Strength: 20 mg 30 tablet 3 [DISCONTINUED] PARoxetine (Paxil) 10 MG tablet Take 1 tablet by mouth every morning. [DISCONTINUED] simvastatin (Zocor) 40 MG tablet Take 1 tablet by mouth Nightly. [DISCONTINUED] omeprazole (PriLOSEC) [address] capsule Take 40 mg by mouth in the morning. No current facility-administered medications on file prior to visit. 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 Patient appears well, alert and oriented x 3, pleasant, cooperative. Vitals are as noted. No carotid bruits. Neck supple, no abnormal adenopathy, thyroid lesions or masses. Ears, nose and throat are normal without acute findings. Lungs are clear to auscultation. Heart is regular, without murmurs, gallops or ectopy. Abdomen is soft, non tender, without masses, hepatosplenomegaly, or bruits. Normal BS evident. Extremities are normal without edema. Peripheral pulses are fair. No worrisome skin lesions. Screening neurological exam is normal without focal deficits. Bilateral foot exam revealed intact color, temperature, sensation, without skin breakdowns. Dorsalis pedis and posterior tibial pulses are adequate. documented in this encounter [facility] 07-18-2022 Telephone encounter Note Refill given. Confirm with the patient that he has a checkup in August for routine laboratory monitoring on this med. [facility] 07-18-2022 Miscellaneous Notes Refill given. Confirm with the patient that he has a checkup in August for routine laboratory monitoring on this med. Rx loaded Medication name: metFORMIN (Glucophage) 500 MG tablet Yessy states the Pt is out of this medication. Please advise. Medication dosage: 500 mg (Miligrams Monthly quantity needed: 60 How many day supply requestin days Medication route: oral (PO) Medication administration time(s): 2 times a day (BID) If taking medication PRN, reason for taking medication: N/A If this is a controlled substance do you receive this or any other controlled medication from any other doctor or facility: N/A Ordering provider: Dr. Craft Date of last office visit: 02/09/2022 Date of next office visit: 08/03/2022 Date of last refill: (see medication tab): 04/05/2022 Updated/Validated preferred pharmacy: Yes Patient instructed to contact the pharmacy prior to picking up the medication: Yes documented in this encounter [facility] 07-18-2022 Telephone encounter Note Rx loaded [facility] 07-18-2022 Telephone encounter Note Medication name: metFORMIN (Glucophage) 500 MG tablet Yessy states the Pt is out of this medication. Please advise. Medication dosage: 500 mg (Miligrams Monthly quantity needed: 60 How many day supply requestin days Medication route: oral (PO) Medication administration time(s): 2 times a day (BID) If taking medication PRN, reason for taking medication: N/A If this is a controlled substance do you receive this or any other controlled medication from any other doctor or facility: N/A Ordering provider: Dr. Craft Date of last office visit: 02/09/2022 Date of next office visit: 08/03/2022 Date of last refill: (see medication tab): 04/05/2022 Updated/Validated preferred pharmacy: Yes Patient instructed to contact the pharmacy prior to picking up the medication: Yes [facility] 06-13-2022 Telephone encounter Note Rx loaded [facility] 06-13-2022 Miscellaneous Notes Rx loaded Medication name: lisinopril 20 MG tablet Medication dosage: 20 mg (Miligrams Monthly quantity needed: 30 How many day supply requestin days Medication route: oral (PO) Medication administration time(s): daily If taking medication PRN, reason for taking medication: N/A If this is a controlled substance do you receive this or any other controlled medication from any other doctor or facility: No Ordering provider: Dr. Craft Date of last office visit: 02.09.22 Date of next office visit: 08.03.22 Date of last refill: (see medication tab): 02.09.22 Updated/Validated preferred pharmacy: Yes Patient instructed to contact the pharmacy prior to picking up the medication: Yes documented in this encounter [facility] 06-13-2022 Telephone encounter Note Medication name: lisinopril 20 MG tablet Medication dosage: 20 mg (Miligrams Monthly quantity needed: 30 How many day supply requestin days Medication route: oral (PO) Medication administration time(s): daily If taking medication PRN, reason for taking medication: N/A If this is a controlled substance do you receive this or any other controlled medication from any other doctor or facility: No Ordering provider: Dr. Craft Date of last office visit: 02.09.22 Date of next office visit: 08.03.22 Date of last refill: (see medication tab): 02.09.22 Updated/Validated preferred pharmacy: Yes Patient instructed to contact the pharmacy prior to picking up the medication: Yes [facility] Evaluation note Diagnosis Left sided sciatica Sciatica documented in this encounter [facility] Work Phone: Evaluation note* Diagnosis Type 2 diabetes mellitus with hyperglycemia, without long-term current use of insulin ([facility]) (HCC)- Primary Essential hypertension Unspecified essential hypertension Hypercholesterolemia with hypertriglyceridemia History of colonic polyps Personal history of colonic polyps Colon cancer screening Special screening for malignant neoplasms, colon HARIKA (generalized anxiety disorder) Generalized anxiety disorder documented in this encounter [facility]* Diagnosis Colon cancer screening- Primary Special screening for malignant neoplasms, colon History of colonic polyps Personal history of colonic polyps documented in this encounter [facility]* Diagnosis Colon cancer screening- Primary Special screening for malignant neoplasms, colon History of colonic polyps Personal history of colonic polyps documented in this encounter [facility]* Diagnosis Type 2 diabetes mellitus without complication, without long-term current use of insulin (CMS/HCC) (HCC)- Primary HARIKA (generalized anxiety disorder) Generalized anxiety disorder Essential hypertension Unspecified essential hypertension Prostate cancer screening Special screening for malignant neoplasm of prostate Hypercholesterolemia with hypertriglyceridemia documented in this encounter [facility]* Diagnosis Essential hypertension Unspecified essential hypertension documented in this encounter [facility]* Diagnosis Essential hypertension Unspecified essential hypertension documented in this encounter [facility]* Diagnosis Essential hypertension Unspecified essential hypertension documented in this encounter [facility]* Diagnosis STEMI (ST elevation myocardial infarction) ([facility])- Primary Acute myocardial infarction, unspecified site, episode of care unspecified 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) [facility]* Diagnosis Hypercholesterolemia with hypertriglyceridemia- Primary Essential hypertension Unspecified essential hypertension 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) Coronary artery disease involving [place] coronary artery of [place] heart without angina pectoris documented [facility] this encounter [facility]* Diagnosis Type 2 diabetes mellitus with hyperglycemia, without long-term current use of insulin (HCC)- Primary Essential hypertension Unspecified essential hypertension Hypercholesterolemia with hypertriglyceridemia Coronary artery disease involving [place] coronary artery of [place] heart without angina pectoris History of ST elevation myocardial infarction (STEMI) [facility] Diagnosis Coronary artery disease involving [place] coronary artery of [place] heart without angina pectoris- Primary Essential hypertension Unspecified essential hypertension Hypercholesterolemia with hypertriglyceridemia documented [facility] this encounter [facility]* Diagnosis Hypercholesterolemia with hypertriglyceridemia- Primary Essential hypertension Unspecified essential hypertension 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) Coronary artery disease involving [place] coronary artery of [place] heart without angina pectoris documented in this encounter [facility]* Diagnosis Type 2 diabetes mellitus with hyperglycemia, without long-term current use of insulin (CMS/HCC) (HCC)- Primary Hypercholesterolemia with hypertriglyceridemia Essential hypertension Unspecified essential hypertension Colon cancer screening Special screening for malignant neoplasms, colon Prostate cancer screening Special screening for malignant neoplasm of prostate documented in this encounter [facility] Discharge instructions* Attachments The following attachments cannot be sent through Care Everywhere. * Heart Attack Recovery ([place]) [facility] Consultation (Routine) - Pending Review Specialty Diagnoses / Procedures Referred By Jeffry stanley Referred To Contact Gastroenterology Diagnoses Colon cancer screening History of colonic polyps Procedures [place] OFFICE/OUTPATIENT [facility] 60-74 MINUTES Orion Craft DO [address] [place] [address] Romelia Cook MD [address] [facility] [place] [address] Referral ID Status Reason Start Date Expiration Date Visits Requested Visits Authorized [id number] Pending Review Specialty Services Required 02/18/2023 02/18/2024 1 1 [facility] Consultation (Routine) - Pending Review Specialty Diagnoses / Procedures Referred By Contac t Referred To Contact Gastroenterology Diagnoses Colon cancer screening History of colonic polyps Procedures MA OFFICE/OUTPATIENT NEW HIGH MDM 60-74 MINUTES Orion Craft DO [address] [place] [address] [address], [address] [place] [address] Referral ID Status Reason Start Date Expiration Date Visits Requested Visits Authorized [id number] Pending Review Specialty Services Required 02/27/2023 02/27/2024 1 1 [facility] Consultation (Routine) - Pending Review Specialty Diagnoses / Procedures Referred By Contact Referred To Contact Cardiac Rehabilitation / Cardiology Diagnoses 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) Procedures MA OFFICE/OUTPATIENT NEW HIGH MDM 60 MINUTES Lupe Forde SUEDE BRUSHER - LEACH CELL OPERATOR [address] 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, [address] [place] [address] Ach 95 [facility] [address] [phone] Referral ID Status Reason Start Date Expiration Date V isits Requested Visits Authorized [id number] Closed Specialty Services Required 01/02/2024 01/01/2025 1 1 [facility] Advance Directives No Advanced Directives Records FoundDocuments on File Type Date Recorded Patient Club Manager Expl anation ACP-Advance Directive ACP-Power of Land Measurer Latest Code Status on File Code Status Date Activated Date Inactivated Comments Full Code 03/14/2016 7:45 AM 03/14/2016 4:07 PM Summary Purpose Family History No Family History Records FoundNo Family History Records FoundNo Family History Records Found Additional Source Comments (unrecognized sect ion and content) No Status Records FoundNo Status Records FoundNo Status Records Found INFORMATION SOURCE (unrecogn ized section and content) DATE CREATED AUTHOR 11/17/2020 [facility] DATE CREATED AUTHOR AUTHOR'S ORGANIZ ATION 03/18/2025 [facility] DATE CREATED AUTHOR AUTHOR'S ORGANIZ ATION 04/15/2025 [facility] Reason for Visit (unrecogniz ed section and content) Reason Comments Med Refill Reason Comments Follow-up 6 month med check Reason Onset Date Comments Referral 02/18/2023 [facility] / Dr Weeks Results 02/18/2023 release 02/18/2023 Reason Onset Date Comments Referral 02/26/2023 02/26/23 Pt call ing to ask for another referral to Gasteroenology in [place] location for COLONOSCOPY pls advise call pt with details Reason Comments Follow-up Med check Reason Onset Date Comments Med Refill 08/26/2023 Reason Comments Blood Pressure Check Elevated and increa se of medication Reason Onset Date Comments Med Refill 10/30/2023 Reason Comments Chest Pain Chest pain started a t 7pm, pt found laying down with legs up. A&Ox4 Specialty Diagnoses / Procedures Referred By Jeffry t Referred To Contact Diagnoses STEMI (ST elevation myocardial infarction) (HCC) Procedures .. Henrique Pavon MD [address] [facility] [address] [place] [address] Ach T1 Ctv Icu [address] [place] [phone] Referral ID Status Reason Start Date Expiration Date Visits Re quested Visits Authorized [id number] 1 1 Reason Onset Date Comments Other 12/30/2023 Post AMI dischar ge phone call Reason Comments Hospital Follow-up Reason Comments Other [facility]- [facility] Reason Onset Date Comments Med Refill 01/31/2024 Medication Problem 01/31/2024 Reason Comments Follow-up Reason Onset Date Comments Med Refill 02/05/2024 Reason Onset Date Comments Error (VOID this visit) 12/30/2023 Reason Onset Date Comments Med Refill 02/21/2024 Reason Onset Date Comments Med Refill 03/26/2024 Reason Onset Date Comments Med Refill 06/13/2022 Reason Onset Date Comments Med Refill 07/18/2022 Reason Comments Follow-up 4 month med check Reason Onset Date Comments Other 08/11/2024 New provider Reason Onset Date Comments Orders 03/17/2025 03/17/25 Pt call ing to ask for a call back to schedule for an COLONOSCOPY at [facility] pt is needing an order Pls call pt with details wlm message sent to office Care Teams (unrecognized sec tion and content) Dishroom Attendant Relationship Specialty Start Date End Date Orion Craft DO [address] [place] [address] PCP - General 04/07/15 Dishroom Attendant Relationship Specialty Start Date End Date Orion Craft DO [address] [place] [address] PCP - General 04/07/15 Dishroom Attendant Relationship Specialty Start Date End Date Orion Craft DO [address], [place] [id number] PCP - General 04/07/15 Dishroom Attendant Relationship Specialty Start Date End Date Orion Craft DO [address], [place] [id number] PCP - General 04/07/15 Dishroom Attendant Relationship Specialty Start Date End Date LuanaOrion, DO [address], [place] [id number] PCP - General 04/07/15 Dishroom Attendant Relationship Specialty Start Date End Date JulikathleenamairaniOrion, DO [address], [place] [id number] PCP - General 04/07/15 Dishroom Attendant Relationship Specialty Start Date End Date LuanaOrion, DO [address] [place] [address] PCP - General 04/07/15 Dishroom Attendant Relationship Specialty Start Date End Date Luana Orion Love, DO [address] [place] [phone] PCP - General 04/07/15 Dishroom Attendant Relationship Specialty Start Date End Date LuanaOrion, DO [address] [place] [phone] PCP - General 04/07/15 Dishroom Attendant Relationship Specialty Start Date End Date LuanaOrion, DO [address] [place] [phone] PCP - General 04/07/15 Dishroom Attendant Relationship Specialty Start Date End Date LuanaOrion, DO [address] [place] [phone] PCP - General 04/07/15 Dishroom Attendant Relationship Specialty Start Date End Date Luana Orion Love, DO [address] [place] [phone] PCP - General 04/07/15 Dishroom Attendant Relationship Specialty Start Date End Date Luana Orion Love, DO [address] [place] [phone] PCP - General 04/07/15 Dishroom Attendant Relationship Specialty Start Date End Date Luana Orion Love, DO [address] [place] [address] PCP - General 04/07/15 Dishroom Attendant Relationship Specialty Start Date End Date Orion Craft Ivan, DO [address] [place] [address] PCP - General 04/07/15 Dishroom Attendant Relationship Specialty Start Date End Date Orion Craft, DO [address] [place] [address] PCP - General 04/07/15 Dishroom Attendant Relationship Specialty Start Date End Date Luana Orion Love, DO [address] [place] [address] PCP - General 04/07/15 Dishroom Attendant Relationship Specialty Start Date End Date Orion Cratf Ivan, DO [address] [place] [address] PCP - General 04/07/15 Radha Irizarry, account installerState'S Attorney Clinical Support Tech 01/01/24 Dishroom Attendant Relationship Specialty Start Date End Date Orion Craft, DO [address] [place] [phone] PCP - General 04/07/15 Radha Irizarry account installerState'S Attorney Clinical Support Tech 01/01/24 Dishroom Attendant Relationship Specialty Start Date End Date Orion Craft, DO [address] [place] [address] PCP - General 04/07/15 Radha Irizarry account installerState'S Attorney Clinical Support Tech 01/01/24 Dishroom Attendant Relationship Specialty Start Date End Date Orion Craft, DO [address] [place] [address] PCP - General 04/07/15 Dishroom Attendant Relationship Specialty Start Date End Date Orion Craft, DO [address] [place] [phone] PCP - General 04/07/15 Dishroom Attendant Relationship Specialty Start Date End Date Orion Craft, DO [address] [place] [phone] PCP - General 04/07/15 Dishroom Attendant Relationship Specialty Start Date End Date Orion Craft, DO [address] [place] [phone] PCP - General 04/07/15 Radha Irizarry account installerState'S Attorney Clinical Support Tech 01/01/24 01/28/24 Dishroom Attendant Relationship Specialty Start Date End Date Orion Craft, DO [address] [place] [phone] PCP - General 04/07/15 Bach, Radha, account installerState'S Attorney Clinical Support Tech 01/01/24 01/28/24 Dishroom Attendant Relationship Specialty Start Date End Date JuliOrion tian DO [address] [place] [address] PCP General 04/07/15 Dishroom Attendant Relationship Specialty Start Date End Date JulikathleenamairaniOrion DO [address] [place] [address] PCP - General 04/07/15 Dishroom Attendant Relationship Specialty Start Date End Date Orion Craft [facility] [address] [facility] 04/07/15 Dishroom Attendant Relationship Specialty Start Date End Date TaamairaniOrion [address] [address] [facility] General 04/07/15 Scheduled Active and Recently Administ ered Medications (unrecognized section and content) Medication Order 12/27/2023 12/28/2023 12/29/2023 aspirin chewable tablet 81 mg 81 mg, Oral, Daily, First dose on 12/29/23 at 0900, Recovery [facility] On Unit 1001 (Given - Provid er: Kalyani Dotson RN) calcium carbonate (Tums) chewable tablet 500 mg 500 mg, Oral, Daily, First dose on 12/28/23 at 0800 0940 (Given - Provider: Kalyani Dotson RN) 0900 (Not Given - Provider: Kalyani Dotson RN - Reason: Patient/family refused) enoxaparin (Lovenox) syringe 40 mg 40 mg, SubCUTAneous, Every 24 hours scheduled (Daily), First dose on 12/29/23 at 0900, Indication of Use: Prophylaxis-DVT/PE, Indications: Prophylaxis of Venous Thromboembolism 1000 (Given - Provid er: Kalyani Dotson RN) Insulin Lispro (Humalog) injection 0-12 Units 0-12 Units, SubCUTAneous, 3 times daily with meals, First dose on 12/28/23 at 0800, Medium Dose Correction Algorithm Glucose: Dose: LESS than 139 No Insulin 140-199 2 Unit 200-249 4 Units 250-299 6 Units 300-349 8 Units 350-400 10 Units Above 400 12 Units 0800 (Not Given - Provider: Kalyani Dotson RN - Reason: Other - Comment: Patient did not eat)1200 (Not Given - Provider: Kalyani Dotson RN - Reason: Order parameters not met - Comment: did not eat lunch)1700 (Given - Provider: Kalyani Dotson RN) 0800 (Not Given - Provider: Kalyani Dotson RN - Reason: Order parameters not met - Comment: did not eat)1200 (Not Given - Provider: Kalyani Dotson RN - Reason: Other) lisinopril tablet 10 mg 10 mg, Oral, Daily, First dose on 12/29/23 at 1215 1225 (Given - Provid er: Kalyani Dotson RN) magnesium sulfate IVPB premix 2,000 mg (COMPLETED) 2,000 mg, IntraVENous, at 25 mL/hr, Administer over 2 Hours, Once, On 12/28/23 at 0430, For 1 dose, Recommended infusion rate not to exceed 1,000 mg (milligrams) per hour. 0437 (New Bag - Provider: Britney Langford, ADORE)0637 (Stopped - Provider: Britney Langford RN) metoprolol succinate XL (Toprol-XL) 24 hr tablet 25 mg 25 mg, Oral, Daily, First dose on 12/28/23 at 1045, Do not crush or chew. 1331 (Given - Provider: Kalyani Dotson RN - Comment: patient sleeping) 1001 (Given - Provider: Kalyani Dotson RN) oxyCODONE (Roxicodone) immediate release tablet 5 mg (COMPLETED) 5 mg, Oral, Once, On 12/28/23 at 0130, For 1 dose 0128 (Given - Provider: Britney Langford RN) pantoprazole (ProtoNix) EC tablet 20 mg 20 mg, Oral, Daily before breakfast, First dose (after last modification) on 12/28/23 at 0700, Do not crush, chew, or split. 0636 (Given - Provider: Britney Langford, ADORE) 1001 (Given - Provider: Kalyani Dotson RN) PARoxetine (Paxil) tablet 20 mg 20 mg, Oral, Daily, First dose on 12/28/23 at 0900 0750 (Given - Provider: Kalyani Dotson RN) 1001 (Given - Provider: Kalyani Dotson RN) rosuvastatin (Crestor) tablet 40 mg 40 mg, Oral, Daily, First dose on 12/28/23 at 0900 0751 (Given - Provider: Kalyani Dotson RN) 1001 (Given - Provider: Kalyani Dotson RN) ticagrelor (Brilinta) tablet 90 mg 90 mg, Oral, 2 times daily, First dose (after last modification) on 12/28/23 at 0800, Recovery & On Unit, Ticagrelor maintenance dose should be given with 81mg of Aspirin. 0751 (Given - Provider: Kalyani Dotson RN)2023 (Given - Provider: Alba Nieves RN) 0100 (Given - Provider: Kalyani Dotson RN) Continuous Medication Order 12/27/2023 12/28/2023 12/29/2023 nitroGLYCERIN 50 mg in dextrose 5% 250 mL infusion (CANCELED) 5-200 mcg/min (1.5-60 mL/hr), IntraVENous, Continuous, Starting on 12/28/23 at 0015, If Titrate Infusion? is No: Disregard instructions below. If Titrate infusion? is Yes: If rate LESS than 20 mcg/min: Titrate by 5 mcg/min no faster than every 5 minutes to goal. If rate GREATER than or equal to 20 mcg/min: Titrate by 10 mcg/min no faster than every 5 minutes to goal., Titrate Infusion? Yes, Initial Infusion Dose: Other, Other (mcg/min): 60, Goal of Therapy is: Chest pain sympton relief, Contact Provider if: SBP less than 90 mmHg 0009 (Continued from OR - Provider: aLuren Zapata RN - Comment: continued from paint laboratory technician)0020 (Rate/Dose Change - Provider: Britney Langford RN)0035 (Rate/Dose Change - Provider: Britney Langford RN)0050 (Rate/Dose Change - Provider: Britney Langford RN)0145 (Rate/Dose Change - Provider: Britney Langford RN)0500 (Rate/Dose Change - Provider: Britney Langford RN)0530 (Rate/Dose Change - Provider: Britney Langford RN)0545 (Rate/Dose Change - Provider: Britney Langford RN)0630 (Rate/Dose Change - Provider: Britney Langford RN)0743 (Rate/Dose Change - Provider: Kalyani Dotson RN)0837 (Rate/Dose Change - Provider: Kalyani Dotson RN)0845 (Rate/Dose Change - Provider: Kalyani Dotson RN)0917 (Rate/Dose Change - Provider: Kalyani Dotson RN)0918 (Stopped - Provider: Kalyani Dotson RN) PRN Medication Order 12/27/2023 12/28/2023 12/29/2023 acetaminophen (Tylenol) tablet 650 mg 650 mg, Oral, Every 4 hours PRN, mild pain (1-3), Fever > 100.5 F (38 C), Starting on Sat12/28/23 at 0002, Recovery & On Unit, Maximum dose of acetaminophen is 4000 mg from all sources in 24 hours. 0023 (Given - Provider: Britney Langford RN) dextrose 5 % infusion 100 mL/hr, IntraVENous, PRN, Blood sugar less than 70mg/dL, Starting on Sat12/27/23 at 2359, Start infusion following administration of dextrose 50% or glucagon. dextrose 50 % solution 12.5 g 12.5 g, IntraVENous, PRN, low blood sugar, Blood glucose less than 70 mg/dL and patient NOT ALERT or NPO., Starting on Sat12/27/23 at 2359, If patient does not respond within 5 minutes, repeat dose x1. Start D5W at 100 mL/hour until ordering provider can be reached. Repeat blood glucose in 15 minutes. If blood glucose is less than 70 mg/dL, repeat treatment and recheck blood glucose in 15 minutes x2. If using Glucostabilizer, dose as instructed per system. fentaNYL (Sublimaze) injection (CANCELED) IntraVENous, Code/trauma/sedation medication, Starting on Sat12/27/23 at 2202 2202 (Given - Provider: Selin Barraza MD) fentaNYL (Sublimaze) injection (CANCELED) IntraVENous, As needed, Starting on Sat12/27/23 at 2228, Intraprocedure 2228 (Given - Provider: Audra Lin RN)2320 (Given - Provider: Audra Lin RN)2334 (Given - Provider: Audra Lin RN) glucagon (human recombinant) injection 1 mg 1 mg, IntraMUSCular, PRN, low blood sugar, Blood glucose less than 70 mg/dL and patient NOT ALERT or NPO and does not have IV access., Starting on Sat12/27/23 at 2359, After administration, attempt intravenous access and start D5W at 100 mL/hr. Repeat blood glucose in 15 minutes x2 and notify provider. glucose oral gel 15 g 15 g, Oral, As needed, low blood sugar, Starting on Sat12/27/23 at 2359, If blood glucose less than 50 mg/dL and patient ALERT and NOT NPO, give 2 tubes glucose gel. If blood glucose less than 70 mg/dL and patient ALERT and NOT NPO, give 1 tube glucose gel. Repeat blood glucose in 15 minutes. If blood glucose is less than 70 mg/dL, repeat treatment and recheck blood glucose in 15 minutes x2 and notify provider. heparin injection (CANCELED) IntraVENous, Code/trauma/sedation medication, Starting on Sat12/27/23 at 2203 2203 (Given - Provider: Selin Barraza MD) heparin injection (CANCELED) IntraVENous, As needed, Starting on Sat12/27/23 at 2222, Intraprocedure 2222 (Given - Provider: Audra Lin RN)2235 (Given - Provider: Audra Lin RN)2313 (Given - Provider: Audra Lin RN)2328 (Given - Provider: Audra Lin RN) iopamidol (Isovue-300) 61 % injection (CANCELED) As needed, Starting on Sat12/27/23 at 2333, Intraprocedure 2333 (Given - Provider: Jacinto Adamson MD) labetalol (Normodyne,Trandate) injection (CANCELED) As needed, Starting on Sat12/27/23 at 2337, Intraprocedure 2337 (Given - Provider: Audra Lin RN) lidocaine (Xylocaine) 1 % injection (CANCELED) As needed, Starting on Sat12/27/23 at 2217, Intraprocedure 221 (Given - Provider: Jacinto Adamson MD) midazolam (Versed) injection (CANCELED) IntraVENous, As needed, Starting on Sat12/27/23 at 2228, Intraprocedure 2228 (Given - Provider: Audra Lin RN)2320 (Given - Provider: Audra Lin RN)2334 (Given - Provider: Audra Lin RN) naloxone (Narcan) injection 0.4 mg 0.4 mg, IntraVENous, Every 5 min PRN, opioid reversal, respiratory depression, Starting on Sat12/27/23 at 2359, +++ For RR <10, pinpoint pupils, over sedation for opioid reversal - MUST notify box order person provider immediately after first dose, may give IM or SQ if no IV access +++ NITROGLYCERIN 100 MCG / ML IN D5W VIAL FOR INTRA-OP/INTRAPROCEDURE USE (CANCELED) As needed, Starting on Sat12/27/23 at 2219, Intraprocedure 2219 (Given - Provider: Jacinto Adamson MD) nitroGLYCERIN 50 mg in dextrose 5% 250 mL infusion (COMPLETED) Continuous PRN, Starting on Sat12/27/23 at 2311, Intraprocedure 2311 (New Bag - Provider: Audra Lin RN)2320 (Rate/Dose Change - Provider: Aurda Lin RN) 0003 (Stopped - Provider: Lauren Zapata RN) ondansetron (Zofran) injection 4 mg 4 mg, IntraVENous, Every 6 hours PRN, nausea, vomiting, Starting on Sat12/28/23 at 0429 0435 (Given - Provider: Britney Langford, ADORE) perflutren protein A microsphere (Optison) 3 mL in sodium chloride (PF) 0.9 % 10 mL IV syringe (COMPLETED) 0-10 mL, IntraVENous, IMG once PRN, other, Suboptimal echo image, Starting on Sat12/28/23 at 0929, For 1 dose, CV Procedural Medications, Administer via slow IVP for suboptimal echocardiogram enhancement. May administer as divided doses to reach optimal image enhancement 0940 (Given - Provider: Kalyani Dotson, ADORE) sodium chloride 0.9 % bolus (CANCELED) IntraVENous, Administer over 1 Hours, Continuous PRN, Starting on Sat12/27/23 at 2243, Intraprocedure 2243 (New Bag - Provider: Audra Lin, ADORE) 0004 (Stopped - Provider: Lauren Zapata RN) ticagrelor (Brilinta) tablet (CANCELED) Oral, Code/trauma/sedation medication, Starting on Sat12/27/23 at 2201 2201 (Given - Provider: Selin Barraza MD) 1001 (Given - Provider: Kalyani Dotson, ADORE) verapamil (Isoptin) injection (CANCELED) As needed, Starting on Sat12/27/23 at 2218, Intraprocedure 2218 (Given - Provider: Jacinto Adamson MD) FOR RECORDS PERTAINING TO PATIENTS WHO ARE OR HAVE BEEN ENROLLED IN A CHEMICAL DEPENDENCY/SUBSTANCEABUSE PROGRAM, SOME INFORMATION MAY BE OMITTED. This clinical summary was aggregated from multiple sources. Caution should be exercised in using it in the provision of clinical care. This summary normalizes information from multiple sources, and as a consequence, information in this document may materially change the coding, format and clinical context of patient data. In addition, data may be omitted in some cases. CLINICAL DECISIONS SHOULD BE BASED ON THE PRIMARY CLINICAL RECORDS. [employer] provides no warranty or guarantee of the accuracy or completeness of information in this document.
[2025-05-12] MEDS: 0.9% Normal Saline (1000mL) 1,000 ML 999 ML IV (23:30)
--- NOTE | 2025-05-12 23:42 | EX.ED.DYSGE1 ---
HPI History of Present Illness Chief Complaint: GI Bleed Informant: patient and spouse/S.O. Narrative Narrative: Patient is a 69-year-old male with past medical history of hypertension hyperlipidemia [id number] type 2 diabetes and recent diagnosis of rectal cancer. He states that today around 2 PM he began with bleeding from his rectum. He states the bleeding can occur even without bowel movements. He denies any history of bleeding disorder or blood thinner use. He states he takes a baby aspirin daily but no other anticoagulation. He denies any palpitations or lightheadedness/syncope. He states he contacted his doctor based on the bleeding and was advised to come to the ER to ensure that he did not require a blood transfusion and therefore presents at this time [facility] Medical History Low iron Cancer Chews tobacco Leg cramps Rectal pain Rectal bleeding Facial palsy Strabismus Lesion of penis Rectum cancer History of echocardiogram STEMI (ST elevation myocardial infarction) CAD (coronary artery disease) Wears hearing aid Loss of hearing Wears glasses Anxiety DVT (deep venous thrombosis) Restless legs Heartburn High cholesterol High blood pressure Hearing problem Myocardial infarct Home Medications ?Medication ?Instructions ?Recorded ?Last Taken ?Type Diltiazem 2% / Lidocaine 5% #1 ea 04/14/25 Unknown Rx ointment (compound) (Diltiazem 2%/Lidocaine 5% ointment (compound)) aspirin 81 mg tablet 81 mg PO QDAY 04/14/25 05/09/25 History blood-glucose meter (Contour Plus 04/14/25 Unknown History Blue Meter) glimepiride 1 mg tablet 1 mg PO QDAY 04/14/25 04/13/25 History levocetirizine 5 mg tablet (Xyzal) 5 mg PO QDAY PRN allergy symptoms 04/14/25 Unknown History lisinopril 20 mg tablet 20 mg PO QDAY 04/14/25 04/15/25 07:00 History metformin 500 mg tablet 500 mg PO DAILY 04/14/25 04/13/25 History metoprolol succinate 50 mg 50 mg PO QDAY 04/14/25 05/10/25 History tablet,extended release 24 hr rosuvastatin 40 mg tablet 40 mg PO QDAY 04/14/25 04/13/25 History oxycodone 5 mg tablet 5 mg PO Q8H PRN pain 2 days #5 tabs 05/10/25 Unknown Rx Allergy/AdvReac Type Severity Reaction Status Date / Time codeine Allergy Severe Hives Verified 05/12/25 21:18 Family History Mother COPD (chronic obstructive pulmonary disease) Father COPD (chronic obstructive pulmonary disease) Surgical History History of colonoscopy History of surgery on right wrist History of meniscectomy of left knee History of hernia repair History of coronary artery stent placement History of cardiac catheterization History of thrombectomy Social History Smoking Status: Current every day smoker tobacco type: smokeless tobacco alcohol intake: never substance use type: does not use what type of physical activity do you participate in: none ROS ROS ED Constitutional Constitutional ED: Denies chills or fever(s) Eyes Eyes: Denies change in vision ENT ENT ED: Denies sore throat Cardiovascular Cardiovascular: Reports other Details: Negative syncope ; Denies chest pain, palpitations or racing heartbeat Respiratory/Chest Respiratory/Chest: Denies cough or dyspnea Gastrointestinal Gastrointestinal: Reports other Details: Positive rectal bleeding ; Denies abdominal pain, diarrhea, nausea or vomiting Genitourinary Genitourinary ED: Denies dysuria or hematuria Musculoskeletal Musculoskeletal: Denies myalgias Integumentary Denies rash Neurologic Neurologic: Denies headache(s) or weakness Hematologic/Lymphatic Hematologic/Lymphatic: Denies easy bleeding or easy bruising EXAM Physical Exam Const Vital Signs: 05/12/25 21:18 05/13/25 01:06 Temperature 98.3 F 98.3 F Temperature Source Oral Pulse Rate 92 65 Respiratory Rate 16 16 Blood Pressure 159/89 H 142/70 H Blood Pressure Mean 112 94 Pulse Ox 98 98 Oxygen Delivery Method Room Air Positive well nourished and well developed General Appearance ED: well developed; Negative for pallor HEENT HEENT Narrative: Normocephalic atraumatic Eyes PERRL and EOMs intact bilaterally Eyes Narrative: No Subconjunctival pallor noted General Eye ED: Negative for scleral icterus Neck supple Resp normal respiratory effort and clear to auscultation bilaterally Cardio regular rate and regular rhythm Rate: other Other Details: Radial and carotid pulses are equal and symmetric GI normal to inspection, nondistended, normoactive bowel sounds, non-tender, non-distended and no masses GI Narrative: No voluntary guarding or rigidity or pulsatile mass No increased tympany noted Auscultation: normoactive bowel sounds Palpation: soft Narrative: Rectal exam shows nonbleeding nonthrombosed external hemorrhoid No protruding rectal mass noted No active bleeding at time of exam. Extremity normal to inspection Neuro oriented x3, CN's II-XII intact bilaterally and no sensory deficits noted Sensorium / Orientation: alert Motor Exam: strength 5/5 throughout Psych mental status grossly normal Skin no rashes or lesions noted Skin Narrative: Capillary refill is less than 3 seconds General Skin Exam: Negative for jaundice or pallor MDM MDM MDM Narrative Medical decision making narrative: Patient arrived to the ER hypertensive but has a past medical history of this and otherwise stable vitals. He has known rectal cancer and his previous CTA of the chest abdomen and pelvis as well as PET scan were reviewed. In order to assess for acute blood loss anemia versus thrombocytopenia or supratherapeutic INR or hepatic derangement elected perform basic laboratory studies. As the patient's had recent CT as well as PET scan I do not feel the need for repeat imaging. At the time of my evaluation there is no active bleeding present. The patient's blood work did show anemia with hemoglobin of 8.9 but chart review reveals that his previous hemoglobin roughly 6 to 7 days ago was 10 indicating only a 1.1 value drop and this is well above the transfusion level of 7. I did attempt to contact his oncologist but there was no return phone call after over 1 hour awaiting. The patient's blood pressure has remained stable as well as his heart rate he is not having recurrent bleeding upon reevaluation at the completion of his exam. Therefore he is above the transfusion value the bleeding has stopped and has not restarted and vitals are stable so there is no need for admission or blood transfusion and he is otherwise safe for discharge with outpatient follow-up. History & Record Review Discussion w/independent historian: Patient and Significant other Additional record(s) reviewed:: Prior outpatient record Lab Data Attestation: I reviewed the patient's lab results. Labs: Laboratory Results - last 24 hr 05/12/25 23:02 WBC 12.0 H RBC 3.70 L Hgb 8.9 L Hct 29.5 L MCV 79.7 L MCH 24.1 L MCHC 30.2 L RDW Std Deviation 45.0 H RDW Coeff of Carlyn 15.4 H Plt Count 202 MPV 10.1 Immature Gran % (Auto) 0.500 Neut % (Auto) 74.8 H Lymph % (Auto) 14.7 L [place] % (Auto) 7.6 Eos % (Auto) 2.0 Baso % (Auto) 0.4 Absolute Neuts (auto) 9.0 H Absolute Lymphs (auto) 1.76 Nucleated RBC % 0 PT 14.2 INR 1.1 APTT 25.2 Sodium 138 Potassium 4.1 Chloride 103 Carbon Dioxide 19.6 L Anion Gap 15 BUN 16 Creatinine 1.18 Estim Creat Clear Calc 82.43 Est GFR (MDRD) Non-Af 66 BUN/Creatinine Ratio 13.7 Glucose 244 H Calcium 8.9 Total Bilirubin < 0.15 Direct Bilirubin < 0.08 AST 16 ALT 8 Alkaline Phosphatase 68 Total Protein 6.4 Albumin 3.7 Globulin 2.8 Discharge Plan Triage Chief Complaint: GI Bleed ED Provider: Dl Hartman Dx/Rx/DC Orders Clinical Impression: Rectal bleeding, Rectum cancer, Hypertension, Hyperlipidemia, Diabetes mellitus type II, non insulin dependent, Anemia Instructions: Colorectal Cancer, ED Lower GI Bleeding (Stable) Prescriptions: No Action metformin 500 mg tablet 500 mg PO DAILY (DME) blood-glucose meter [Contour Plus Blue Meter] Misc See Rx Instructions .Route Rx Instructions: As directed metoprolol succinate 50 mg tablet extended release 24 hr 50 mg PO QDAY lisinopril 20 mg tablet 20 mg PO QDAY glimepiride 1 mg tablet 1 mg PO QDAY aspirin 81 mg tablet 81 mg PO QDAY rosuvastatin 40 mg tablet 40 mg PO QDAY levocetirizine [Xyzal] 5 mg tablet 5 mg PO QDAY PRN (Reason: allergy symptoms) (DME) Diltiazem 2%/Lidocaine 5% ointment (compound) Ointment See Rx Instructions .Route Qty: 1 0RF Rx Instructions: Apply peasized amount to anus three times per day for hemorrhoids oxycodone 5 mg tablet 5 mg PO Q8H PRN (Reason: pain) 2 Days Qty: 5 0RF Primary Care Provider: Wyatt Giron Referrals: Wyatt Giron, [Primary Care Provider, Family Practice] Activity Restrictions/Additional Instructions: Your hemoglobin/blood volume was 10 on May 06 and tonight it was 8.9. This is well above the transfusion value of 7. Follow-up with your family doctor and/or oncologist for further evaluation. If you have a bloody bowel movement but do not have a drop in your blood pressure or elevation in your heart rate or sensation of dizziness/passing out and bleeding is not persistent then this is most likely okay for you to stay home. If bleeding is persistent or he develop any of those above symptoms such as low blood pressure high heart rate or dizziness/syncope return to the ER for repeat evaluation Print Language: Mohawk Disposition Disposition: Home, Self Care Discharge Date/Time: 05/13/25 01:11
[2025-05-13 00:10] LABS: AST(SGOT) 16 U/L (<=37); Alanine Aminotransfer ALT/SGPT 8 U/L (<=46); Albumin, Serum 3.7 g/dL (3.4-4.8); Alkaline Phosphatase 68 U/L (40-129); Anion Gap 15 (5-15); BUN 16 mg/dL (4-19); BUN/Creat Ratio 13.7 RATIO (10-20); Bilirubin, Direct < 0.08 mg/dL (0.00-0.30); Calcium,Total 8.9 mg/dL (7.6-11.0); Carbon Dioxide 19.6 mmol/L (21.0-32.0); Chloride 103 mmol/L (98-108); Estimated Creatinine Clearance 82.43 ml/min (50-250); Globulin 2.8 g/dL (2.2-4.2); Glucose 244 mg/dL (70-99); Potassium 4.1 mmol/L (3.3-5.1)
[2025-05-13 01:06] VITALS: BP 142/70; PULSE 65; RESP 16; TEMP 36.8; O2SAT 98
== END 2025-05-13 01:11 | disposition home or self-care (01) ==
PROVIDERS: Emergency Provider Emergency Medicine; PCP Family Medicine; Visit Provider Emergency Medicine
DX: K62.5 Hemorrhage of anus and rectum (principal); C20 Malignant neoplasm of rectum; E11.9 Type 2 diabetes mellitus without complications; D64.9 Anemia, unspecified; E78.5 Hyperlipidemia, unspecified; I10 Essential (primary) hypertension; I25.10 Atherosclerotic heart disease of native coronary artery without angina pectoris; I25.2 Old myocardial infarction; Z86.718 Personal history of other venous thrombosis and embolism
CPT/HCPCS: 80048; 80076; 85025; 85610; 85730; 96360; 96361; 99283; A4216

== ENCOUNTER → 2025-05-18 | Outpatient (CLI) | payer MEDICARE, SELFPAY ==
--- NOTE | 2025-05-18 09:49 | MRI_ITS ---
EXAM: PELVIS W/WO CONTRAST 05/18/2025 CLINICAL HISTORY: STAGING RECTAL CANCER. TECHNIQUE: Procedure Code: [id number] Modality: MR Procedure: PELVIS W/WO CONTRAST Multiplanar and multisequence images were obtained intravenous gadolinium contrast. CONTRAST: Clariscan VOLUME: 19 mL COMPARISON: None FINDINGS: Rectal cancer: Morphology/location: Complex. Intraluminal polypoid component left anteriorly. Transmural component in the lower rectum and anus. Location: In the lower rectum it is anterior and left lateral. At the level of the sphincter it is anterior with a polypoid intraluminal component left laterally. This can be seen at the level of the anal verge and should be able to be directly inspected clinically. Size: Irregular and shape. At least 5.6 cm cephalocaudal from the low rectum to the anal verge. T stage: T4b. In the low rectum anteriorly there is extension beyond the muscularis propria into the mesorectal fat approximately 16 mm; this contacts the mesorectal fascia anteriorly and left laterally in the low rectum. Additionally, there is invasion of the pubococcygeal sling left laterally shown on axial T2 image 21. There is local architectural distortion there. This is also appreciated on coronal image 17. There is mass effect on the prostate but no direct invasion of the peripheral zone capsule or seminal vesicles. At the lower portion of the low rectum just above the sphincter there is continued loss of the signal of the muscularis propria with soft tissue involvement anteriorly. There is mass effect upon the apex of the prostate in the posterior margin of the distal prostatic urethra, but no direct invasion. This is best appreciated in the axial and sagittal planes of the T2 weighted images. No fat plane exists between the two structures, however. At the level of the anus left anterolaterally there is a polypoid mass that protrudes into the lumen towards the anal verge. Both the internal and external sphincter at this level appear to be involved. The fat plane between the two at the inter sphincteric space is no longer seen anteriorly and anterolaterally. MRF: Involved. Less than 1 mm between the tumor in the MRF. EMVI: None seen N stage: N2. At least 20 abnormal lymph nodes in the mesorectal envelope. Largest left posterolaterally best seen on the postcontrast images, image 50. Tumor deposits: Present. As described above. Pelvic metastatic disease: No inguinal lymphadenopathy. No iliac lymphadenopathy. No bone lesions seen. Incidental finding: Peripheral zone of the prostate gland is unremarkable. Stromal and glandular BPH is present. Bladder is unremarkable. MRI/Pelvis W/WO Contrast IMPRESSION: 1. Low rectal and anal mass. [id number]. Transmural component into the mesorect al fascia. Endoluminal, polypoid component present as well. See above description. 2. Lesion involvement of the mesorectal fascia, left pubococcygeal sling. Mas s effect upon the prostate, lower prostatic urethra near the prostate apex. No fat plane between the tube but no direct in vasion seen. See above description. 3. Prostate BPH. Reading Location: [id number]
--- NOTE | 2025-05-18 09:49 | MRI_ITS ---
PROCEDURE: BRAIN W/WO CONTRAST 05/18/2025 REASON FOR EXAM: STAGING RECTAL CANCER TECHNIQUE: Procedure Code: [id number] Modality: MR Procedure: BRAIN W/WO CONTRAST Multiplanar and multisequence images were obtained. CONTRAST: Clariscan VOLUME: 19 mL COMPARISON: None available. FINDINGS: No acute infarct or hemorrhage. Scattered nonspecific periventricular and subcortical T2/FLAIR white matter hyperintensities in the cerebral hemispheres likely reflect chronic microvascular ischemic changes. No pathologic intracranial enhancement. No extra-axial fluid collection. No significant mass effect or herniation of the brain. Global cerebral volume loss. No hydrocephalus. The basal cisterns are patent. The intracranial large vessel arterial flow voids are maintained. The mastoid air cells clear. There is scattered paranasal mucosal thickening. The orbits are unremarkable. The calvarial bone marrow signal is within normal limits. MRI/Brain W/WO Contrast IMPRESSION: No evidence of intracranial metastatic disease. No acute infarct, hemorrhage, or significant mass effect. Chronic microvascular ischemic changes. Reading Location: [id number]
== END | disposition home or self-care (01) ==
LOC: OPMRI 09:48
PROVIDERS: PCP Family Medicine; Referring Provider Internal Medicine Hematology & Oncology; Visit Provider Internal Medicine Hematology & Oncology
DX: C20 Malignant neoplasm of rectum (principal)
CPT/HCPCS: 70553; 72197; A9575; Q9957; A4216